=== PATIENT | male | born 1975 | race Two or more races ===

== ENCOUNTER → 2022-08-16 07:54 | Outpatient (BNVA) | payer SELFPAY | PROVIDERS: PCP Physician Assistant; Visit Provider Internal Medicine | DX: Z02.79 Encounter for issue of other medical certificate (principal) ==

== ENCOUNTER 2023-03-12 12:35 | Outpatient (REF) | payer MEDICAID, SELFPAY ==
[2023-03-12 13:21] LABS: MANUAL DIFF FLAG NO
[2023-03-12 13:45] LABS: Basophils Percent Auto 0.4 % (0-2); Eosinophils Absolute Auto 0.1 X10*3/uL (0.0-0.4); Eosinophils Percent Auto 0.9 % (0-4); Hematocrit 45.9 % (42.0-52.0); Hemoglobin 15.3 g/dl (14.0-18.0); Imm Gran Abs Auto 0.05 X10*3/uL (0.00-0.03); Imm Gran Pct Auto 0.5 % (0.0-0.4); Lymphocytes Absolute Auto 2.8 X10*3/uL (1.2-4.9); Lymphocytes Percent Auto 26.9 % (20-40); Mean Corpuscular HGB Conc 33.3 g/dl (31.0-36.0); Mean Corpuscular Hemoglobin 29.9 pg (27.0-33.0); Mean Corpuscular Volume 89.6 fL (80.0-98.0); Mean Platelet Volume 9.8 fL (9.4-12.4); Monocytes Absolute Auto 0.7 X10*3/uL (0.1-1.2); Monocytes Percent Auto 6.6 % (2-11); Neutrophils Absolute Auto 6.7 x10*3/uL (2.0-8.3); Neutrophils Percent Auto 64.7 % (45-73); Platelet Count 307 X10*3/uL (160-400); Red Blood Count 5.12 X10*6/uL (4.60-5.80); Red Cell Distribution Width 13.2 % (11.0-16.0); White Blood Count 10.3 X10*3/uL (4.8-10.8)
[2023-03-12 14:44] LABS: Erythrocyte Sedimentation Rate 29 MM/HR (0-15)
[2023-03-12 14:52] LABS: Anion Gap 12 (12-20); Blood Urea Nitrogen 12 mg/dL (9-16); Calcium 9.5 mg/dL (8.4-10.2); Carbon Dioxide 25 mmol/L (22-29); Chloride 105 mmol/L (96-108); Estimated Glomerular Filt Rate > 60; Glucose Random 78 mg/dL (60-115); Potassium 4.3 mmol/L (3.3-5.1); Sodium 138 mmol/L (135-145)
== END 2023-03-12 12:36 | disposition home or self-care (01) ==
LOC: HO.HHCL 12:35
PROVIDERS: Visit Provider Internal Medicine
DX: R10.32 Left lower quadrant pain (principal)
CPT/HCPCS: 36415; 80048; 85025; 85652

== ENCOUNTER 2023-05-01 03:31 | Inpatient (IN) | payer MEDICAID, SELFPAY ==
[2023-05-01] VITALS (11 sets, daily range): BP systolic 100–168; BP diastolic 46–92; PULSE 50–82; RESP 11–20; TEMP 36.2–36.8; O2SAT 95–98; BMI 30.4
--- NOTE | ~2023-05-01 | FL_ITS ---
EXAMINATION: XR FLUOROSCOPY WITH IMAGES CLINICAL INFORMATION: Cystoscopy, ureteroscopy, retrograde laser lithotripsy left side. COMPARISON: CT abdomen and pelvis 05/01/2023. TECHNIQUE: Fluoroscopy Supervised By: Dr. Silverio. Fluoroscopy Time: 39.8 seconds. Cumulative Dose: 19.95 mGy. Images: Left solitary image demonstrates a wire or catheter within the left ureter and ultimately left collecting system. There is motion artifact. FINDINGS: Laser lithotripsy left side. FL/FL guidance in OR IMPRESSION: As above. Please refer to full operative report for detail.
--- NOTE | ~2023-05-01 | CT_ITS ---
EXAMINATION: CT ABDOMEN AND PELVIS WITHOUT CONTRAST CLINICAL INFORMATION: Back pain, hematuria. COMPARISON: No recent comparison available. TECHNIQUE: Multidetector volumetric imaging was performed from the superior aspect of the liver through the pubic symphysis. Sagittal and coronal reformatted images were obtained on the technologist's workstation. This CT examination was performed using dose optimization techniques as appropriate, variously including the following: *Automated exposure control *Adjustment of mA and/or kV according to patient size (this includes techniques or standardized protocols for targeted exams where dose is matched to indication/reason for exam; i.e. extremities or head) *Use of iterative reconstruction technique DLP: 637 mGy-cm FINDINGS: LUNG BASES: Mild bibasilar atelectasis. HEPATOBILIARY: Liver has normal size and contour. Mild hepatic steatosis is evident with relative sparing adjacent to the gallbladder fossa. Gallbladder has a normal appearance. No radiopaque stones, wall thickening or pericholecystic fluid. No dilated bile ducts. PANCREAS: No edema, pancreatic ductal dilatation or mass. SPLEEN: Normal. ADRENAL GLANDS: Normal. KIDNEYS AND URETERS: Kidneys are normal in size. Left ureteral stent in satisfactory position. A stone of the left ureteropelvic junction causes moderate hydronephrosis. The stone measures up to 1.7 cm maximum dimension, density of approximately 1150 - 1200 Hounsfield units, located 14.6 cm deep from the skin surface at the posterior axillary line. 0.3 cm calyceal stone is present in the left lower pole. No evidence of stones within the ureter. The right kidney and right ureter are unremarkable. BLADDER: The distal segment of the left ureteral stent is well-positioned within the lumen of the urinary bladder. BOWEL AND PERITONEUM: No dilated bowel loops. No focal bowel wall thickening, mesenteric fat stranding or free fluid. There are diverticula of the sigmoid colon without evidence of diverticulitis. ABDOMINAL WALL: Unremarkable. VASCULATURE: Abdominal aorta is normal in caliber. LYMPH NODES: No pathologic sized lymph nodes in the abdomen or pelvis. No inguinal lymphadenopathy. PELVIC VISCERA: Unremarkable. MUSCULOSKELETAL: No acute findings within the visualized degenerated spine. No fracture or malalignment. The degenerative narrowing of disc space is worst (moderate in degree) at L5-S1. CT/CT abdomen pelvis wo IV con IMPRESSION: * Moderate left hydronephrosis is caused by a ureteropelvic junction stone. Also, a small calyceal stone is present in the left lower pole. The left ureteral stent is in satisfactory position. * Diverticulosis of the sigmoid colon without diverticulitis. * Diffuse hepatic steatosis.
[2023-05-01 03:52] LABS: Hematocrit 46.6 % (42.0-52.0); Hemoglobin 15.9 g/dl (14.0-18.0); Mean Corpuscular HGB Conc 34.1 g/dl (31.0-36.0); Mean Corpuscular Hemoglobin 30.4 pg (27.0-33.0); Mean Corpuscular Volume 89.1 fL (80.0-98.0); Mean Platelet Volume 8.5 fL (9.4-12.4); Platelet Count 319 X10*3/uL (160-400); Red Blood Count 5.23 X10*6/uL (4.60-5.80); Red Cell Distribution Width 12.6 % (11.0-16.0); White Blood Count 21.9 X10*3/uL (4.8-10.8)
[2023-05-01 04:20] LABS: Alanine Aminotransferase 20 U/L (0-40); Albumin Level 3.7 g/dL (3.5-5.0); Alkaline Phosphatase 75 U/L (39-117); Anion Gap 14 (12-20); Aspartate Amino Transferase 28 U/L (5-37); Bilirubin Total 0.3 mg/dL (0.0-1.0); Blood Urea Nitrogen 30 mg/dL (9-16); Calcium 8.9 mg/dL (8.4-10.2); Carbon Dioxide 21 mmol/L (22-29); Chloride 107 mmol/L (96-108); Creatinine Clr Calc Pharmacy 77.5; Estimated Glomerular Filt Rate > 60; Glucose Random 99 mg/dL (60-115); Lipase 58 U/L (8-78); Potassium 4.7 mmol/L (3.3-5.1); Sodium 137 mmol/L (135-145); Total Protein 8.5 g/dL (6.5-8.0)
--- OUTSIDE RECORDS SUMMARY | 2023-05-01 04:44 | XMS_ITS | Continuity of Care Document ---
Author Name Unknown Organization [facility] Address [address] [place] [address]- Care Team Providers Care Disposal Man Name Role Phone Name Toni TREADWELL Primary Care Physician En[place] [facility] [place](s): 07/27/22 - 08/26/22 [facility] [address] [place] [id number] Attending Physician: Yuli Uribe Admitting Physician: Admtr, Yuli Referring Physician: Admtr, Ar8 Allergies, Adverse Reactions, Alerts Substance Reaction Severity Status traMADol SOB Active Medications acetaminophen 325 mg oral tablet 975 mg, 3, tablet, By Mouth, Every 6 hours, # 50 tablet, Refills 0, Tot. Refills 0, Acute 10/26/22 7:18:00 EDT, 10/25/21 7:18:00 EDT, Route to Pharmacy Electronically, [facility], Partial fill upon patient request if the prescription is... Start Date: 10/25/21 Stop Date: 10/26/22 Status: Ordered amLODIPine 2.5 mg oral tablet 0 Refills, Maintenance, 07/27/22 9:25:00 EST, Partial fill upon patient request if the prescriptionis for a schedule II opioid drug. Start Date: 07/27/22 Status: Ordered gemfibrozil 600 mg oral tablet 600 mg, 1, tablet, By Mouth, 2 times a day, Refills 0, Maintenance, 10/24/21 12:03:00 EDT, Partial fill upon patient request if the prescription is for a schedule II opioid drug. Start Date: 10/24/21 Status: Ordered Ibuprofen Refills 0, Maintenance, 10/19/21 11:23:00 EDT, Partial fill upon patient request if the prescription is for a schedule II opioid drug. Start Date: 10/19/21 Status: Ordered Omeprazole By Mouth, Daily, 0 Refills, Maintenance, 10/19/21 11:23:00 EDT, Partial fill upon patient request if the prescription is for a schedule II opioid drug. Start Date: 10/19/21 Status: Ordered oxyCODONE 5 mg oral tablet 5 mg, 1, tablet, By Mouth, Every 4 hours, PRN, # 20 tablet, Refills 0, Tot. Refills 0, Acute 10/26/22 7:18:00 EDT, Pain , Severe, 10/25/21 7:18:00 EDT, Route to Pharmacy Electronically, [facility], Partial fill upon patient request if th... Start Date: 10/25/21 Stop Date: 10/26/22 Status: Ordered Problem List Condition Confirmation Course Effective Dates Status Health St [facility] Informant Obese class II Confirmed Active Social History Social History Type Response Smoking Status Never (less than 100 in lifetime) entered on: 10/05/21 Sex Patient Care team information Care Team Personnel Name: Toni Watts MD Position: [facility] Outreach Member Role: PCP Address: Address: [address] [place] [id number]- Care Team Related Persons Name: JAY MCWILLIAMS Address: home [address] [place] [address]
--- OUTSIDE RECORDS SUMMARY | 2023-05-01 04:44 | XMS_ITS | Continuity of Care Document ---
Author Name Unknown Organization [facility] Address Unknown Care Team Providers Care Costume Director Name Role Phone Name Toni TREADWELL Primary Care Physician Encounter [facility] [place] Date(s): 11/07/21 - 11/14/21 [facility] Attending Physician: Morteza TREADWELL, Jazmin Referring Physician: Toni Watts MD Allergies, Adverse Reactions, Alerts Substance Reaction Severity Status traMADol SOB Active Medications acetaminophen 325 mg oral tablet 975 mg, 3, tablet, By Mouth, Every 6 hours, # 50 tablet, Refills 0, Tot. Refills 0, Acute 10/26/22 7:18:00 EDT, 10/25/21 7:18:00 EDT, Route to Pharmacy Electronically, [facility], Partial fill upon patient request if the prescription is... Start Date: 10/25/21 Stop Date: 10/26/22 Status: Ordered gemfibrozil 600 mg oral tablet [...] 10/25/21 7:18:00 EDT, Route to Pharmacy Electronically, [facility], Partial fill upon patient request if th... Start Date: 10/25/21 Stop Date: 10/26/22 Status: Ordered Problem List Condition Effective Dates Status Health Status Inform ant Obese class II(Confirmed) Active Social History Social History Type Response Smoking Status Never (less than 100 in lifetime) entered on: 10/05/21 Sex
--- OUTSIDE RECORDS SUMMARY | 2023-05-01 04:44 | XMS_ITS | Continuity of Care Document ---
Author Name Unknown Organization [facility] Address Unknown Care Team Providers Care Paper Core Machine Operator Name Role Phone Name Toni TREADWELL Primary Care Physician [place] [facility] [place] [id number] Date(s): 11/07/21 - 12/07/21 [facility] Attending Physician: Yuli Uribe Admitting Physician: AdmYuli elliott Referring Physician: AdmtrYuli Allergies, Adverse Reactions, Alerts Substance Reaction Severity Status traMADol SOB Active Medications acetaminophen 325 mg oral tablet 975 mg, 3, tablet, By Mouth, Every 6 hours, # 50 tablet, Refills 0, Tot. Refills 0, Acute 10/26/22 7:18:00 EDT, 10/25/21 7:18:00 EDT, Route to Pharmacy Electronically, [facility], Partial fill upon patient [...] 10/25/21 7:18:00 EDT, Route to Pharmacy Electronically, [facility], Partial fill upon patient request if th... Start Date: 10/25/21 Stop Date: 10/26/22 Status: Ordered Problem List Condition Effective Dates Status Health Status Inform ant Obese class II(Confirmed) Active Social History Social History Type Response Smoking Status Never (less than 100 in lifetime) entered on: 10/05/21 Sex
--- OUTSIDE RECORDS SUMMARY | 2023-05-01 04:44 | XMS_ITS | Continuity of Care Document ---
Author Name Unknown Organization [facility] Address Unknown Care Team Providers Care Survey Project Manager Name Role Phone Name Toni TREADWELL Primary Care Physician En[place] [facility] [place] Date(s): 10/12/21 - 11/11/21 [facility] Allergies, Adverse Reactions, Alerts Substance Reaction Severity Status traMADol SOB Active Medications acetaminophen 325 mg oral tablet 975 mg, 3, tablet, By Mouth, Every 6 hours, # 50 tablet, Refills 0, Tot. Refills 0, Acute 10/26/22 7:18:00 EDT, 10/25/21 7:18:00 EDT, Route to Pharmacy Electronically, [facility], Partial fill upon patient [...] 10/25/21 7:18:00 EDT, Route to Pharmacy Electronically, [facility], Partial fill upon patient request if th... Start Date: 10/25/21 Stop Date: 10/26/22 Status: Ordered Problem List Condition Effective Dates Status Health Status Inform ant Obese class II(Confirmed) Active Social History Social History Type Response Smoking Status Never (less than 100 in lifetime) entered on: 10/05/21 Sex
--- OUTSIDE RECORDS SUMMARY | 2023-05-01 04:44 | XMS_ITS | Continuity of Care Document ---
Author Name Unknown Organization [facility] Address [address] [place] [address]- Care Team Providers Care Medical Malpractice Paralegal Name Role Phone Name Toni TREADWELL Primary Care Physician [place] [facility] [place] 11[place]/21 [facility] [address] [place] [email or web address] Attending Physician: Yuli Uribe Admitting Physician: AdmtrYuli Referring Physician: Admtr, Ar8 Allergies, Adverse Reactions, Alerts Substance Reaction Severity Status traMADol SOB Active Medications acetaminophen 325 mg oral tablet 975 mg, 3, tablet, By Mouth, Every 6 hours, # 50 tablet, Refills 0, Tot. Refills 0, Acute 10/26/22 7:18:00 EDT, 10/25/21 7:18:00 EDT, Route to Pharmacy Electronically, [facility], Partial fill upon patient request if [...] 10/25/21 7:18:00 EDT, Route to Pharmacy Electronically, [facility], Partial fill upon patient request if th... Start Date: 10/25/21 Stop Date: 10/26/22 Status: Ordered Problem List Condition Effective Dates Status Health Status Inform ant Obese class II(Confirmed) Active Social History Social History Type Response Smoking Status Never (less than 100 in lifetime) entered on: 10/05/21 Sex
--- OUTSIDE RECORDS SUMMARY | 2023-05-01 04:44 | XMS_ITS | Continuity of Care Document ---
Author Name Unknown Organization [facility] Address [address] [place] [address]- Care Team Providers Care Deputy Sheriff Generalist/Bailiff Name Role Phone Name Toni TREADWELL Primary Care Physician Encounter [facility] [place] Date(s): 09/26/21 - 10/26/21 [facility] [address] [place] [id number] Allergies, Adverse Reactions, Alerts Substance Reaction Severity Status traMADol SOB Active Medications acetaminophen 325 mg oral tablet 975 mg, 3, tablet, By Mouth, Every 6 hours, # 50 tablet, Refills 0, Tot. Refills 0, Acute 10/26/22 7:18:00 EDT, 10/25/21 7:18:00 EDT, Route to Pharmacy Electronically, [facility], Partial fill upon patient request [...] 10/25/21 7:18:00 EDT, Route to Pharmacy Electronically, [facility], Partial fill upon patient request if th... Start Date: 10/25/21 Stop Date: 10/26/22 Status: Ordered Problem List Condition Effective Dates Status Health Status Inform ant Obese class II(Confirmed) Active Social History Social History Type Response Smoking Status Never (less than 100 in lifetime) entered on: 10/05/21 Sex
--- OUTSIDE RECORDS SUMMARY | 2023-05-01 04:44 | XMS_ITS | Continuity of Care Document ---
Author Name Unknown Organization [facility] Address [address] [place] [id number]- Care Team Providers Care Tap Out Operator Name Role Phone Name Toni TREADWELL Primary Care Physician [phone] [place] [facility] [place]04[place] 08/03/22 [facility] [address] [place] [id number]- [place] Allergies, Adverse Reactions, Alerts Substance Reaction Severity [...] Care team information Care Team Personnel Name: Name Toni TREADWELL Position: [facility] Outreach Member Role: PCP Address: Address: [address] [place] [address]- Care Team Related Persons Name: JAY MCWILLIAMS Address: home [address] [place] [address]
--- OUTSIDE RECORDS SUMMARY | 2023-05-01 04:44 | XMS_ITS | Continuity of Care Document ---
Author Name Unknown Organization [facility] Address [address] [place] [address]- Care Team Providers Care Medical Staff Services Manager Name Role Phone Name Toni TREADWELL Primary Care Physician [place] [facility] [place](s): 11/04/22 - 12/04/22 [facility] [address] [place] [address]- Allergies, Adverse Reactions, Alerts Substance Reaction Severity Status traMADol SOB Active Medications amLODIPine 5 mg oral tablet 5 mg, 1, tablet, By Mouth, Daily, This is an increase in dose. Refer subsequentl refills to PCP., #90 tablet, Refills 3, Tot. Refills 3, Maintenance, 09/06/22 9:53:00 EDT, Route to Pharmacy Electronically, [id number], Partial fill upon patien... Start Date: 09/06/22 Stop Date: 09/01/23 Status: Ordered gemfibrozil 600 mg oral tablet [...] opioid drug. Start Date: 10/19/21 Status: Ordered Problem List Condition Confirmation Course Effective Dates Status Health St [facility] Informant Obese class II Confirmed Active Social History Social History Type Response Smoking Status Never (less than 100 in lifetime) entered on: 10/05/21 Sex Patient Care team information Care Team Personnel Name: Name Toni TREADWELL Position: [facility] Outreach Member Role: PCP Address: Address: [address] [place] [phone]- Care Team Related Persons Name: JAY MCWILLIAMS Address: home [address] [place] [address]
[2023-05-01 06:33] LABS: Appearance Urine Cloudy; Glucose Urine UA Negative (Negative); Leukocyte Esterase Urine Small (1+) (Negative); PH 6.5 (5.0-9.0); Specific Gravity - Urine 1.025 (1.005-1.025); UMIC TRIGGER UACC YES; Urine Blood Large (3+) (Negative); Urine Protein 300 (3+) mg/dL (Neg-Trace)
[2023-05-01 06:35] LABS: Color Urine Brown
[2023-05-01 06:41] LABS: Bacteria Urine None Seen (None Seen); Hyaline Casts Urine 0-2 /LPF (0-2); RBC Urine >20 /HPF (0-2); Squamous Epithelial Cell Urine 0-2 /HPF (0-2); UACC Culture Trigger YES; WBC Urine >50 /HPF (0-5)
--- NOTE | 2023-05-01 06:57 | ED_ITS ---
HPI - General Adult General Chief complaint: General Medical Stated complaint: kidney pain Time Seen by Provider: 05/01/23 06:54 Source: patient Mode of arrival: ambulatory Limitations: no limitations History of Present Illness HPI narrative: 47-year-old male presents for evaluation of severe left flank pain that radiates to the left lower quadrant. He was recently admitted to [facility] on for a left sided 16mm kidney stone where a stent was placed. The patient was discharged on Saturday, and started experiencing blood in his urine and pain around noon yesterday. He reports increased urinary frequency and dysuria. He denies fevers, chest pain, palpitations, and shortness of breath. He also reports left calf and foot pain which has been going on for 7 weeks but is significantly worse today. He says the DVT workup at [place] was negative. He denies nausea, vomiting, and diarrhea. No headaches or vision changes. No urinary or bowel incontinence. No gait abnormalities, sensory loss, or paresthesias. Related Data Allergies Allergy/AdvReac Type Severity Reaction Status Date / Time trazodone AdvReac Anaphylaxis Verified 05/01/23 03:49 Review of Systems 2 Review of Systems: Constitutional : No Weight loss, No Fever, No Chills, No Fatigue, No Malaise Cardiovascular : No Chest Pain, No SOB, No Dyspnea on Exertion, No Orthopnea, No Edema, No Palpitations Respiratory : No Cough, No Sputum, No Wheezing Gastrointestinal : No Nausea, No Vomiting, No Diarrhea, No Constipation, + abdominal Pain, No Hematochezia, No Melena Genitourinary : + Dysuria, + Urinary Frequency, + Hematuria, Musculoskeletal : +Flank pain. +Left calf and foot pain. Skin : No Skin Lesions, No rash Neuro : No Weakness, No Numbness, No Dizziness, No Headache All other systems reviewed and are negative PMFSH Social History Social History Advance Directives: No Advance Directives Information Provided: No Physical Exam ED Vital Signs: Vital Signs - 24 hr 05/01/23 03:36 05/01/23 04:31 05/01/23 06:31 Temperature 97.9 F 98.2 F Pulse Rate 82 67 57 Respiratory Rate 20 16 16 Blood Pressure 130/62 119/75 100/55 L Pulse Oximetry 96 95 98 Oxygen Delivery Method Room Air Room Air Room Air 05/01/23 08:00 05/01/23 08:57 Temperature 97.8 F Pulse Rate 60 53 Respiratory Rate 13 18 Blood Pressure 124/64 146/84 H Pulse Oximetry 98 97 Oxygen Delivery Method Room Air Room Air BMI result Body Mass Index 30.4 VSS Appearance: Alert.? Oriented X3.?Uncomfortable but in no acute distress.? Head: Normocephalic, atraumatic, no step-offs or deformities Eyes: Pupils equal, round and reactive to light. Neck: Normal inspection.? Neck supple.?No cervical lymphadenopathy noted on exam. CVS: Normal heart rate and rhythm.? Pulses normal.? Respiratory: No respiratory distress.? Breath sounds normal.? Abdomen: Soft and nondistended. Normoactive bowel sounds throughout. Tenderness to palpation of the left lower quadrant. No rebound tenderness or guarding. Negative Aguilar's, McBurney's, and Rosving's. Skin: Skin warm and dry.? Normal skin color.? Normal skin turgor.? Extremities: No lower extremity edema.? + left calf and left great toe ttp. 5/5 strength to right lower extremities. 4/5 strength to left lower extremity. Full ROM of right lower extremity, range of motion on left is limited due to pain. 2+ DP/PT pulses bilaterally. No sensory deficit noted on exam. Back: No midline tenderness, no C-spine tenderness, full range of motion. +CVA tenderness on left, no CVA tenderness on right. Neuro: Oriented X 3.? No motor deficit.? No sensory deficit. CN 2-12 intact Course Reevaluation(s) Reevaluation #1: CBC leukocytosis 21.9. Chemistry unremarkable no acute findings requiring intervention. UA with no bacteria however large amount of blood noted and leukocyte esterases. CT abdomen and pelvis with moderate left hydronephrosis caused by UPJ stone. Stone present in the left lower pole also. Diverticulosis however no diverticulitis. This case was discussed with urology recommended adding oxybutynin and re-evaluation Time: 08:12 Reevaluation #2: Re-evaluation patient still 9/10 pain, reported this Urology will give Dilaudid for pain control. Plans hospital admission Time: 09:57 Medications Administered Discontinued Medications Generic Name Dose Route Start Last Admin Trade Name Freq PRN Reason Stop Dose Admin Sodium Chloride 2,721.54 mls @ 2,721.54 mls/hr 05/01/23 06:54 05/01/23 09:56 Ns 30 ml/kg infuse over 1 hr (2721.54 ml) 05/01/23 07:53 Infused IV Infusion .Q1H STA Ceftriaxone Sodium 1 gm/ 50 mls @ 100 mls/hr 05/01/23 06:54 05/01/23 08:04 Sodium Chloride IV 05/01/23 07:23 Infused ONCE ONE Infusion Ketorolac Tromethamine 30 mg 05/01/23 08:12 05/01/23 08:53 Ketorolac Tromethamine 15 Mg/Ml Vial IVPUSH 05/01/23 08:13 30 mg ONCE ONE Administration Morphine Sulfate 4 mg 05/01/23 06:59 05/01/23 08:03 Morphine Sulfate 4 Mg/Ml Cartridge IVPUSH 05/01/23 07:00 4 mg ONCE ONE Administration Protocol Oxybutynin Chloride 5 mg 05/01/23 08:13 05/01/23 08:53 Oxybutynin Chloride Er 5 Mg Tab.Er.24 PO 05/01/23 08:14 5 mg ONCE ONE Administration Medical Decision Making Medical Decision Making [facility] Narrative: 0650 47-year-old male 6 days s/p ureteral stent placement for 16 mm kidney stone presents with left flank pain, left lower abdominal pain, dysuria, hematuria, and increased urinary frequency PE revealed left sided CVA tenderness, tenderness to palpation of the LLQ, and TTP of the left calf Likely urolithiasis, pyelonephritis, UTI, DVT unlikely sepsis, bowel perforation, acute abdomen, appendicitis, cholecystitis, diverticulitis, pancreatitis, SBO, LBO, cauda equinae, epidural abscess, threat to limb, NV compromise Plan: Labs, UA, Imaging I noted patient has a white count from labs obtained prior to me picking up this patient, he is tachycardic, low blood pressure, at this time infection suspected will treat with ceftriaxone, fluids. Will obtain blood cultures and lactic Differential Diagnosis Differential Diagnoses: The differential diagnosis associated with the presentation includes Likely urolithiasis, pyelonephritis, UTI, DVT unlikely sepsis, bowel perforation, acute abdomen, appendicitis, cholecystitis, diverticulitis, pancreatitis, SBO, LBO, cauda equinae, epidural abscess, threat to limb, NV compromise Admission/Observation Consideration of admission/observation: Escalation of care including admission/observation considered Likely Consult Healthcare Provider Management of the patient was discussed with: Diagram Clerk Lab Data MDM Lab Attestation statement: I reviewed the patient's lab results. 05/01/23 03:46 05/01/23 03:46 Labs: Lab Results 05/01/23 05/01/23 05/01/23 Range/Units 03:46 06:28 07:05 WBC 21.9 H (4.8-10.8) X10*3/uL RBC 5.23 (4.60-5.80) X10*6/uL Hgb 15.9 (14.0-18.0) g/dl Hct 46.6 (42.0-52.0) % MCV 89.1 (80.0-98.0) fL MCH 30.4 (27.0-33.0) pg MCHC 34.1 (31.0-36.0) g/dl RDW 12.6 (11.0-16.0) % Plt Count 319 (160-400) X10*3/uL MPV 8.5 L (9.4-12.4) fL Absolute Nucleated RBC 0.000 (0.0-0.012) X10*3/uL Nucleated RBC % (auto) 0.0 (0.0-0.2) /100WBC D-Dimer High Sensitivty NG/ML Sodium 137 (135-145) mmol/L Potassium 4.7 (3.3-5.1) mmol/L Chloride 107 (96-108) mmol/L Carbon Dioxide 21 L (22-29) mmol/L Anion Gap 14 (12-20) BUN 30 H (9-16) mg/dL Creatinine 1.26 (0.5-1.4) mg/dL Estim Creat Clear Calc 77.5 Estimated GFR > 60 Random Glucose 99 (60-115) mg/dL Lactic Acid 1.3 (0.5-2.0) mmol/L Calcium 8.9 D (8.4-10.2) mg/dL Total Bilirubin 0.3 (0.0-1.0) mg/dL AST 28 (5-37) U/L ALT 20 (0-40) U/L Alkaline Phosphatase 75 (39-117) U/L Total Protein 8.5 H (6.5-8.0) g/dL Albumin 3.7 (3.5-5.0) g/dL Lipase 58 (8-78) U/L Urine Color Brown A Urine Appearance Cloudy Urine pH 6.5 (5.0-9.0) Ur Specific [place] 1.025 (1.005-1.025) Urine Protein 300 (3+) H (Neg-Trace) mg/dL Urine Glucose (UA) Negative (Negative) mg/dL Urine Ketones See Note (Negative) mg/dL Urine Blood Large (3+) H (Negative) Urine Nitrite See Note (Negative) Ur Leukocyte Esterase Small (1+) H (Negative) Urine RBC >20 H (0-2) /HPF Urine WBC >50 H (0-5) /HPF Ur Squamous Epith Cells 0-2 (0-2) /HPF Urine Bacteria None Seen (None Seen) Hyaline Casts 0-2 (0-2) /LPF 05/01/23 Range/Units 07:19 WBC (4.8-10.8) X10*3/uL RBC (4.60-5.80) X10*6/uL Hgb (14.0-18.0) g/dl Hct (42.0-52.0) % MCV (80.0-98.0) fL MCH (27.0-33.0) pg MCHC (31.0-36.0) g/dl RDW (11.0-16.0) % Plt Count (160-400) X10*3/uL MPV (9.4-12.4) fL Absolute Nucleated RBC (0.0-0.012) X10*3/uL Nucleated RBC % (auto) (0.0-0.2) /100WBC D-Dimer High Sensitivty < 150 NG/ML Sodium (135-145) mmol/L Potassium (3.3-5.1) mmol/L Chloride (96-108) mmol/L Carbon Dioxide (22-29) mmol/L Anion Gap (12-20) BUN (9-16) mg/dL Creatinine (0.5-1.4) mg/dL Estim Creat Clear Calc Estimated GFR Random Glucose (60-115) mg/dL Lactic Acid (0.5-2.0) mmol/L Calcium (8.4-10.2) mg/dL Total Bilirubin (0.0-1.0) mg/dL AST (5-37) U/L ALT (0-40) U/L Alkaline Phosphatase (39-117) U/L Total Protein (6.5-8.0) g/dL Albumin (3.5-5.0) g/dL Lipase (8-78) U/L Urine Color Urine Appearance Urine pH (5.0-9.0) Ur Specific [place] (1.005-1.025) Urine Protein (Neg-Trace) mg/dL Urine Glucose (UA) (Negative) mg/dL Urine Ketones (Negative) mg/dL Urine Blood (Negative) Urine Nitrite (Negative) Ur Leukocyte Esterase (Negative) Urine RBC (0-2) /HPF Urine WBC (0-5) /HPF Ur Squamous Epith Cells (0-2) /HPF Urine Bacteria (None Seen) Hyaline Casts (0-2) /LPF Critical Care Time Critical Care Time Critical Care Time: Yes Total Critical Care Time: 35 Attestation: I attest to this time spent taking care of the patient, obtaining history, physical, reviewing labs, imaging, speaking to my attending, speaking to specialist. Discharge Plan Discharge Clinical Impression: Hydronephrosis, Left flank pain Patient Disposition: Admitted As Inpatient Instructions: Flank Pain (ED), Hydronephrosis (ED)
[2023-05-01] MEDS: 0.9 % Sodium Chloride 2,721.54 ML 2721.54 ML IV (07:09)
--- NOTE | 2023-05-01 07:12 | PC.NURSE ---
Assumed care of pt at this time.
[2023-05-01 07:19] LABS: Lactic Acid 1.3 mmol/L (0.5-2.0)
[2023-05-01] MEDS: cefTRIAXone sodium 1 GM in 0.9 % Sodium Chloride 50 ML IV (07:20)
[2023-05-01 07:34] LABS: D Dimer High Sensitivity < 150 NG/ML
[2023-05-01] MEDS: Morphine Sulfate 4 MG/ML CARTRIDGE IVPUSH (08:03)
[2023-05-01] MEDS: Ketorolac Tromethamine 15 MG/ML VIAL 30 MG IVPUSH (08:53)
[2023-05-01] MEDS: oxyBUTYnin chloride ER 5 MG TAB.ER.24 PO (08:53)
--- NOTE | 2023-05-01 08:57 | PC.NURSE ---
IV fluids still running per sepsis protocol.
--- NOTE | 2023-05-01 09:54 | PC.NURSE ---
Pain medication ineffective; provider notified. Orders to follow
[2023-05-01] MEDS: HYDROmorphone HCl 1 MG/ML SYRINGE IVPUSH ×2 (10:01→12:46)
--- NOTE | 2023-05-01 12:50 | PC.NURSE ---
medication administered per provider order.
--- NOTE | 2023-05-01 13:02 | PHA.MEDREC ---
Pharmacy Consult ? Medication Reconciliation Pharmacy has completed the medication reconciliation.
--- NOTE | 2023-05-01 13:27 | PC.NURSE ---
Pain medication still ineffective; provider notified. Awaiting orders.
--- NOTE | 2023-05-01 14:21 | PC.NURSE ---
Pt assessed to be sleeping comfortably with no signs of discomfort.
[2023-05-01] MEDS: HYDROcodone Bit/Acetam 5/325 TABLET 1 TAB PO ×2 (18:30→23:50)
[2023-05-01] MEDS: 0.9 % Sodium Chloride 1,000 ML 100 ML IVCONT (19:46)
[2023-05-02] MEDS: Ketorolac Tromethamine 30 MG/ML VIAL IVPUSH ×3 (00:25→13:57)
[2023-05-02 03:14] VITALS: BP 140/73; PULSE 57; RESP 16; TEMP 36; O2SAT 95
[2023-05-02] MEDS: HYDROcodone Bit/Acetam 5/325 TABLET 1 TAB PO ×4 (03:47→22:02)
[2023-05-02] MEDS: 0.9 % Sodium Chloride 1,000 ML 100 ML IVCONT ×3 (05:27→17:27)
[2023-05-02 06:15] LABS: MANUAL DIFF FLAG NO
[2023-05-02 06:24] LABS: Basophils Percent Auto 0.3 % (0-2); Eosinophils Absolute Auto 0.2 X10*3/uL (0.0-0.4); Eosinophils Percent Auto 1.9 % (0-4); Hematocrit 43.2 % (42.0-52.0); Hemoglobin 14.8 g/dl (14.0-18.0); Imm Gran Abs Auto 0.07 X10*3/uL (0.00-0.03); Imm Gran Pct Auto 0.6 % (0.0-0.4); Lymphocytes Absolute Auto 2.8 X10*3/uL (1.2-4.9); Lymphocytes Percent Auto 22.4 % (20-40); Mean Corpuscular HGB Conc 34.3 g/dl (31.0-36.0); Mean Corpuscular Hemoglobin 30.5 pg (27.0-33.0); Mean Corpuscular Volume 89.1 fL (80.0-98.0); Mean Platelet Volume 8.9 fL (9.4-12.4); Monocytes Absolute Auto 0.8 X10*3/uL (0.1-1.2); Monocytes Percent Auto 6.2 % (2-11); Neutrophils Absolute Auto 8.4 x10*3/uL (2.0-8.3); Neutrophils Percent Auto 68.6 % (45-73); Platelet Count 288 X10*3/uL (160-400); Red Blood Count 4.85 X10*6/uL (4.60-5.80); Red Cell Distribution Width 12.6 % (11.0-16.0); White Blood Count 12.3 X10*3/uL (4.8-10.8)
[2023-05-02] MEDS: cefTRIAXone sodium 1 GM in 0.9 % Sodium Chloride 50 ML IV (06:27)
[2023-05-02 07:42] VITALS: BP 137/67; PULSE 64; RESP 16; TEMP 36.3; O2SAT 96
--- NOTE | 2023-05-02 12:04 | MHC.CM.PN ---
PATIENT FROM HOME WITH AND SON. AMBULATES WITH [facility]. NO SERVICES. HCP: JAY [phone] PCP: BAIRON GILBERT DCP: GOAL IS HOME SELF CARE, TO TRANSPORT. CM WILL CONTINUE TO FOLLOW.
--- NOTE | 2023-05-02 13:36 | P.HPGS_ITS ---
History of Present Illness History of Present Illness Date of Service: 05/02/23 Chief complaint: renal colic Narrative: Ifeanyi Howard is a 47 year old male Had undergone cystoscopy with stent placement last at [facility] Has not tolerated stent on left side Persistent pain with nausea Has been admitted for control of renal colic Imaging - CT A stone of the left ureteropelvic junction causes moderate hydronephrosis. The stone measures up to 1.7 cm maximum dimension, density of approximately 1150 - 1200 Hounsfield units, located 14.6 cm deep from the skin surface at the posterior axillary line. 0.3 cm calyceal stone is present in the left lower pole. No evidence of stones within the ureter Lab work shows WBC 12.3 down from 29 Based on failure to tolerate stent recommend intervention with cystoscopy, left stent removal, left ureteroscopy with laser lithotripsy Review of Systems Constitutional: Constitutional: Reports as per HPI and Reports no additional constitutional complaints Cardiovascular: Cardiovascular: Reports as per HPI and Reports no additional cardiovascular complaints Respiratory: Respiratory: Reports as per HPI and Reports no additional respiratory complaints Gastrointestinal: Gastrointestinal: Reports as per HPI and Reports no additional gastrointestinal complaints Genitourinary: Genitourinary: Reports as per HPI Musculoskeletal: Musculoskeletal: Reports no additional musculoskeletal complaints and Reports as per HPI Neurologic: Reports system reviewed and no additional complaints, except as documented and Reports as per HPI [facility] Social History Social History Household Members: Children Housing: House Do you presently have visiting nurse or other home services: No Patient Tobacco Use Status: Never used Tobacco Use of substances other than those prescribed or required for medical reasons: No Currently Displaying Signs/Symptoms of Drug Intoxication Withdrawal: No Have you been hit, kicked, punched, or otherwise hurt by someone within the past year? If so, by whom?: No Do you feel safe in your current relationship?: Yes Is there a partner from a previous relationship who is making you feel unsafe now?: No Are you made to feel afraid or neglected: No Advance Directives: No Advance Directives Information Provided: No Do you have thoughts of harming others: None Do you have a plan to hurt others: No Plan Recently lost weight without trying: Yes How much weight loss: 34pounds or more Eating poorly because of decreased appetite: Yes Nutrition screen score: 7 Nutrition Risks: No Nutritional Risk Poor oral hygiene: No service: No Meds Allergies Allergy/AdvReac Type Severity Reaction Status Date / Time trazodone AdvReac Anaphylaxis Verified 05/01/23 03:49 Active Medications: Current Medications Acetaminophen (Acetaminophen 325 Mg Tablet) 650 mg PO Q6H PRN PRN Reason: Pain, Mild (Pain Scale 1-3) Hydrocodone Bitart/Acetaminophen (Hydrocodone Bit/Acetam 5/325 Tablet) 1 tab PO Q4H PRN PRN Reason: Pain, Moderate(Pain Scale 4-6) Last Admin: 05/02/23 10:56 Dose: 1 tab Sodium Chloride (Ns) 1,000 mls @ 100 mls/hr IVCONT .Q10H [facility] Last Admin: 05/02/23 12:33 Dose: 100 mls/hr Ceftriaxone Sodium 1 gm/ (Sodium Chloride) 50 mls @ 100 mls/hr IV Q24H [facility] Last Infusion: 05/02/23 07:37 Dose: Infused Levofloxacin (Levaquin) 500 mg in 100 mls @ 100 mls/hr IV PREOP ONE Stop: 05/02/23 14:31 Ketorolac Tromethamine (Ketorolac Tromethamine 30 Mg/Ml Vial) 30 mg IVPUSH Q6H PRN PRN Reason: Pain, Mild (Pain Scale 1-3) Stop: 05/06/23 16:34 Last Admin: 05/02/23 06:25 Dose: 30 mg Sodium Chloride (0.9 % Sodium Chloride Flush 3 Ml Syringe) 3 ml IVFLUSH QSHIFT [facility] Last Admin: 05/02/23 07:37 Dose: Not Given Home Medications Medication Instructions Recorded Confirmed Last Taken Type acetaminophen 500 mg tablet 500 mg PO Q6H PRN mild pain 05/01/23 05/01/23 Unknown History amlodipine 5 mg tablet 5 mg PO DAILY 05/01/23 05/01/23 Unknown History diclofenac sodium 1 % topical gel 1 inch topical BID pain 05/01/23 05/01/23 Unknown History docusate sodium 100 mg capsule 100 mg PO BID 05/01/23 05/01/23 Unknown History methocarbamol 750 mg tablet 750 mg PO Q6H PRN muscle spasm 05/01/23 05/01/23 Unknown History omega-3 300 mg-dha 120 mg-epa 180 1 cap PO QAM 05/01/23 05/01/23 Unknown History mg-fish oil 1,000 mg capsule omeprazole 40 mg capsule,delayed 40 mg PO DAILY 05/01/23 05/01/23 Unknown H istory release tamsulosin 0.4 mg capsule 0.4 mg PO QAM 05/01/23 05/01/23 Unknown History Physical Exam Vital Signs: Vital Signs: Last Vital Signs Temp 97.4 F 05/02/23 07:42 Pulse 64 05/02/23 07:42 Resp 16 05/02/23 07:42 BP 137/67 05/02/23 07:42 Pulse Ox 96 05/02/23 07:42 O2 Del Method Room Air 05/02/23 07:42 BMI result Body Mass Index 30.4 Const: General: cooperative, healthy appearing, comfortable and no acute distress Orientation/consciousness: patient oriented x3 HEENT: Face and sinus: Yes normal facial exam Mouth: moist mucous membranes Neck: Neck: Yes normal visual inspection, Yes full ROM and Yes trachea midline Chest: Chest palpation & inspection: normal inspection of the chest Resp: Effort & Inspection: normal respiratory effort, able to speak in complete sentences and no respiratory distress GI: Inspection: Yes normal to inspection Back/Spine/Pelvis: Cervical Spine: normal cervical lordosis Thoracic/Lumbar Spine: thoracic and lumbar spine normal to inspection Skin: General skin exam: no rashes or lesions noted Neuro: General: patient oriented x3, tone normal and moves all extremities Extrem: General: Yes normal to inspection and Yes capillary refill normal Results Results Labs: Short CBC 05/02/23 Range/Units 05:44 WBC 12.3 H (4.8-10.8) X10*3/uL Hgb 14.8 (14.0-18.0) g/dl Hct 43.2 (42.0-52.0) % Plt Count 288 (160-400) X10*3/uL Urine 05/01/23 Range/Units 06:28 Urine Color Brown A Urine Appearance Cloudy Urine pH 6.5 (5.0-9.0) Ur Specific [place] 1.025 (1.005-1.025) Urine Protein 300 (3+) H (Neg-Trace) mg/dL Urine Glucose (UA) Negative (Negative) mg/dL Assessment and Plan (1) Left flank pain: Status: Acute (2) Hydronephrosis: Qualifiers: Hydronephrosis type: with ureteropelvic junction obstruction Qualified 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
[2023-05-02 15:32] VITALS: BP 131/71; PULSE 64; RESP 16; TEMP 36.6; O2SAT 94
[2023-05-02 19:21] VITALS: BP 134/75; PULSE 70; RESP 18; TEMP 36.4; O2SAT 95
[2023-05-03] VITALS (11 sets, daily range): BP systolic 114–158; BP diastolic 62–90; PULSE 61–106; RESP 16–18; TEMP 36–36.9; O2SAT 94–98
[2023-05-03] MEDS: Ketorolac Tromethamine 30 MG/ML VIAL IVPUSH ×2 (02:05→05:42)
[2023-05-03] MEDS: 0.9 % Sodium Chloride 1,000 ML 100 ML IVCONT ×2 (02:33→15:39)
[2023-05-03] MEDS: HYDROcodone Bit/Acetam 5/325 TABLET 1 TAB PO (04:52)
[2023-05-03] MEDS: cefTRIAXone sodium 1 GM in 0.9 % Sodium Chloride 50 ML IV (05:43)
--- NOTE | 2023-05-03 05:45 | MHC.PIE ---
p; pt c/o pain 02/26, note; prn toladol q6 given at 0200, prn lorcet given at 0452 with no effect. i; dr nguyen notified. ok to give early dose toradol e; will cont to monitor
--- NOTE | 2023-05-03 10:58 | MHC.CM.PN ---
EMR REVIEWED. NO DC AT THIS TIME, PLAN FOR OR TODAY. CM WILL CONTINUE TO FOLLOW.
--- NOTE | 2023-05-03 11:13 | HO.ANESPROP2 ---
HPI - Anesthesia Eval Consult details Narrative: Urethral stone PMFSH Active Problems Active Problems: All Active Problems (Updated 05/02/23 @ 13:42 by Cruz Benavides MD) Left renal stone (Acute) Left flank pain (Acute) Hydronephrosis (Acute) Family History Family history of problems with anesthesia: No Surgical History History of Problems with Anesthesia: No Social History Social History Household Members: Children Housing: House Do you presently have visiting nurse or other home services: No Patient Tobacco Use Status: Never used Tobacco Use of substances other than those prescribed or required for medical reasons: No Currently Displaying Signs/Symptoms of Drug Intoxication Withdrawal: No Have you been hit, kicked, punched, or otherwise hurt by someone within the past year? If so, by whom?: No Do you feel safe in your current relationship?: Yes Is there a partner from a previous relationship who is making you feel unsafe now?: No Are you made to feel afraid or neglected: No Advance Directives: No Advance Directives Information Provided: No Do you have thoughts of harming others: None Do you have a plan to hurt others: No Plan Recently lost weight without trying: Yes How much weight loss: 34pounds or more Eating poorly because of decreased appetite: Yes Nutrition screen score: 7 Nutrition Risks: No Nutritional Risk Poor oral hygiene: No service: No Meds Allergies Allergy/AdvReac Type Severity Reaction Status Date / Time trazodone AdvReac Anaphylaxis Verified 05/01/23 03:49 Active Medications: Current Medications Acetaminophen (Acetaminophen 325 Mg Tablet) 650 mg PO Q6H PRN PRN Reason: Pain, Mild (Pain Scale 1-3) Hydrocodone Bitart/Acetaminophen (Hydrocodone Bit/Acetam 5/325 Tablet) 1 tab PO Q4H PRN PRN Reason: Pain, Moderate(Pain Scale 4-6) Last Admin: 05/03/23 04:52 Dose: 1 tab Sodium Chloride (Ns) 1,000 mls @ 100 mls/hr IVCONT .Q10H [facility] Last Admin: 05/03/23 02:33 Dose: 100 mls/hr Ceftriaxone Sodium 1 gm/ (Sodium Chloride) 50 mls @ 100 mls/hr IV Q24H [facility] Last Infusion: 05/03/23 06:26 Dose: Infused Ketorolac Tromethamine (Ketorolac Tromethamine 30 Mg/Ml Vial) 30 mg IVPUSH Q6H PRN PRN Reason: Pain, Mild (Pain Scale 1-3) Stop: 05/06/23 16:34 Last Admin: 05/03/23 05:42 Dose: 30 mg Sodium Chloride (0.9 % Sodium Chloride Flush 3 Ml Syringe) 3 ml IVFLUSH QSHIFT [facility] Last Admin: 05/03/23 07:08 Dose: Not Given Home Medications Medication Instructions Recorded Confirmed Last Taken Type acetaminophen 500 mg tablet 500 mg PO Q6H PRN mild pain 05/01/23 05/01/23 Unknown History amlodipine 5 mg tablet 5 mg PO DAILY 05/01/23 05/01/23 Unknown History diclofenac sodium 1 % topical gel 1 inch topical BID pain 05/01/23 05/01/23 Unknown History docusate sodium 100 mg capsule 100 mg PO BID 05/01/23 05/01/23 Unknown History methocarbamol 750 mg tablet 750 mg PO Q6H PRN muscle spasm 05/01/23 05/01/23 Unknown History omega-3 300 mg-dha 120 mg-epa 180 1 cap PO QAM 05/01/23 05/01/23 Unknown History mg-fish oil 1,000 mg capsule omeprazole 40 mg capsule,delayed 40 mg PO DAILY 05/01/23 05/01/23 Unknown History release tamsulosin 0.4 mg capsule 0.4 mg PO QAM 05/01/23 05/01/23 Unknown History Exam Height,Weight and Vital Signs: Height 5 ft 8 in Weight 90.718 kg Last Vital Signs Temp 98.1 F 05/03/23 07:57 Pulse 61 05/03/23 07:57 Resp 18 05/03/23 07:57 BP 123/71 05/03/23 07:57 Pulse Ox 95 05/03/23 07:57 O2 Del Method Room Air 05/03/23 07:57 Pertinent Lab Results Pertinent Lab Results: Laboratory Tests 05/01/23 05/01/23 05/01/23 03:46 06:28 07:05 WBC 21.9 H RBC 5.23 Hgb 15.9 Hct 46.6 MCV 89.1 MCH 30.4 MCHC 34.1 RDW 12.6 Plt Count 319 MPV 8.5 L Immature Gran % (Auto) Neut % (Auto) Lymph % (Auto) [place] % (Auto) Eos % (Auto) Baso % (Auto) Lymph # (Auto) [place] # (Auto) Eos # (Auto) Baso # (Auto) Abs Immat Gran (auto) Absolute Neuts (auto) Absolute Nucleated RBC 0.000 Nucleated RBC % (auto) 0.0 D-Dimer High Sensitivty Sodium 137 Potassium 4.7 Chloride 107 Carbon Dioxide 21 L Anion Gap 14 BUN 30 H Creatinine 1.26 Estim Creat Clear Calc 77.5 Estimated GFR > 60 Random Glucose 99 Lactic Acid 1.3 Calcium 8.9 D Total Bilirubin 0.3 AST 28 ALT 20 Alkaline Phosphatase 75 Total Protein 8.5 H Albumin 3.7 Lipase 58 Urine Color Brown A Urine Appearance Cloudy Urine pH 6.5 Ur Specific [place] 1.025 Urine Protein 300 (3+) H Urine Glucose (UA) Negative Urine Ketones See Note Urine Blood Large (3+) H Urine Nitrite See Note Ur Leukocyte Esterase Small (1+) H Urine RBC >20 H Urine WBC >50 H Ur Squamous Epith Cells 0-2 Urine Bacteria None Seen Hyaline Casts 0-2 05/01/23 05/02/23 07:19 05:44 WBC 12.3 H RBC 4.85 Hgb 14.8 Hct 43.2 MCV 89.1 MCH 30.5 MCHC 34.3 RDW 12.6 Plt Count 288 MPV 8.9 L Immature Gran % (Auto) 0.6 H Neut % (Auto) 68.6 Lymph % (Auto) 22.4 [place] % (Auto) 6.2 Eos % (Auto) 1.9 Baso % (Auto) 0.3 Lymph # (Auto) 2.8 [place] # (Auto) 0.8 Eos # (Auto) 0.2 Baso # (Auto) 0.0 Abs Immat Gran (auto) 0.07 H Absolute Neuts (auto) 8.4 H Absolute Nucleated RBC 0.000 Nucleated RBC % (auto) 0.0 D-Dimer High Sensitivty < 150 Sodium Potassium Chloride Carbon Dioxide Anion Gap BUN Creatinine Estim Creat Clear Calc Estimated GFR Random Glucose Lactic Acid Calcium Total Bilirubin AST ALT Alkaline Phosphatase Total Protein Albumin Lipase Urine Color Urine Appearance Urine pH Ur Specific [place] Urine Protein Urine Glucose (UA) Urine Ketones Urine Blood Urine Nitrite Ur Leukocyte Esterase Urine RBC Urine WBC Ur Squamous Epith Cells Urine Bacteria Hyaline Casts Airway Mallampati Class: II TM Dist: >3cm Neck ROM: Limited Heart: rrr Lungs: cta Assessment and Plan Assessment Anesthesia Assessment: Anesthesia Plan Discussed Final Anesthetic Review Family History of Problems with Anesthesia: No History of Problems with Anesthesia: No NPO: Yes ASA Class: II Final Preanesthetic Review: No Changes in Pt Med Stat, Meds/Allgs Chart Reviewed, Consent Obtained/Reviewed and Anes Risks/Benef Reviewed Patient Risk: Intermediate Procedure Risk: Intermediate Anesthetic Plan Anesthetic Plan: GA and Agree w/ Assess. and Plan Disposition: Standard PACU
--- NOTE | 2023-05-03 11:34 | HO.POSTANES ---
Post Anesthesia Evaluation Post Anesthesia Evaluation Date of Service: 05/03/23 Vital Signs: Vital Signs Temp Pulse Resp BP Pulse Ox O2 Del Method 05/03/23 07:57 98.1 F 61 18 123/71 95 Room Air 05/03/23 04:00 96.8 F 68 18 154/87 H 97 Room Air Anesthesia: General Mental Status: Awake Pain Control: Satisfactory Nausea/Vomiting: None Hydration: Adequate Anesthesia-Related Issues: No Anes. Related Issues
--- NOTE | 2023-05-03 12:24 | P.HPSUR_ITS ---
Pre-Procedural Eval Section A Date of Service: 05/03/23 The patient is an INPATIENT: No Changes since office visit: No Cold of Flu in the past 2 weeks, No New Medical Problems, No Changes in Medication and No Patient answered all questions The History & Physical has been completed within 30 days and I have reviewed it.: Yes Section B Chief Complaint: renal colic Details of Present Illness: cystoscopy, left stent removal, ureteroscopy, laser, basket, stent Allergies: Allergies Allergy/AdvReac Type Severity Reaction Status Date / Time tramadol Allergy Chest Pain Verified 05/03/23 11:56 Review of Systems Sugical H&P ROS: Negative: Constitution, Cardiovascular, Respiratory, Neuro logical, Psychiatric, Hem-Onc, Allergic/Immunologic, Gastrointestinal, Genitourinary, Musculoskeletal, Integumentary, Endocrine and Eyes/Ears/Nose/Throat Exam Surgical H&P Exam: Normal: HEENT, Normal: Heart, Normal: Lungs, Normal: Extremities, Normal: Abdomen, Normal: Skin and Normal: Neurological Plan Diagnosis/Plan: Unchanged (cystoscopy, left ureteroscopy) I have reviewed the history and physical and performed a pertinent physical examination on my patient. No changes have occurred unless specified. Time Spent With Patient Time: Total time managing care of this patient today ____ minutes.
--- NOTE | 2023-05-03 12:27 | P.PNUR_ITS ---
Subjective Subjective Date of Service: 05/03/23 Interval history: persistent pain plan for procedure Physical Exam 2 Vital Signs: Vital Signs: Last Vital Signs Temp 97.6 F 05/03/23 11:44 Pulse 74 05/03/23 11:44 Resp 16 05/03/23 11:44 BP 158/88 H 05/03/23 11:44 Pulse Ox 97 05/03/23 11:44 O2 Del Method Room Air 05/03/23 11:44 BMI result Body Mass Index 30.4 Const: General: cooperative, healthy appearing, comfortable and no acute distress Orientation/consciousness: patient oriented x3 HEENT: Face and sinus: Yes normal facial exam Mouth: moist mucous membranes Neck: Neck: Yes normal visual inspection, Yes full ROM and Yes trachea midline Chest: Chest palpation & inspection: normal inspection of the chest Resp: Effort & Inspection: normal respiratory effort, able to speak in complete sentences and no respiratory distress GI: Inspection: Yes normal to inspection Back/Spine/Pelvis: Cervical Spine: normal cervical lordosis Thoracic/Lumbar Spine: thoracic and lumbar spine normal to inspection Skin: General skin exam: no rashes or lesions noted Neuro: General: patient oriented x3, tone normal and moves all extremities Extrem: General: Yes normal to inspection and Yes capillary refill normal Urology Results Labs 05/02/23 05:44 05/01/23 03:46 Progress Note: A&P Assessment and plan (1) Left renal stone: Status: Acute (2) Left flank pain: Status: Acute Time Spent With Patient Time: Total time managing care of this patient today ____ minutes. Progress Note: Quality Stroke Does the patient have a stroke diagnosis?: No
--- NOTE | 2023-05-03 14:02 | P.OP_ITS ---
Operative Note Operative Note Date of Service: 05/03/23 Narrative: PreOperative Diagnosis: Left stent, left impacted UPJ stone Post Operative Diagnosis: Same Procedure: - cystoscopy, left retrograde, - left stent removal - left ureteric dilatation on fluoroscopy - left ureteroscopy, laser lithotripsy, stone basketing - modifier 22 50% longer than typical 45 minutes - left stent placement Surgeon: Dr Cruz Benavides Anesthesia: General Indications for procedure: Placement of left stent a 16 mm impacted UPJ stone at an outside facility. Pr esented through emergency room with persistent flank pain. Did not tolerate conservative therapy. Recommend intervention with ureteroscopy and laser lithotripsy of stone Procedure: After informed consent was verified patient was brought to the operating placed in supine position. Anesthesia was administered per protocol. Patient was placed in modified dorsal lithotomy position and prepped and draped in a sterile fashion. Safety pause time-out and side of surgery confirmed. Antibiotics confirmed. 22 Macedonian cystoscope was inserted per urethra. Bladder was normal in its entirety. Both ureteric orifices were in normal position. Stent was emerging from the left ureteric orifice The left ureteric orifice was cannulated and a retrograde examination was per formed. Stone seen at proximal UPJ. A Sensor guidewire was placed up to the level of the renal pelvis under fluoroscopy. An attempt was made to remove the indwelling left stent It was coiled behind the stone and unable to be easily removed. The rigid cystoscope was removed and the inner cannula of ureteric access sheath was used under fluoroscopy to dilate the ureteric orifice. The ureteric access sheath was placed and the inner cannula removed. The digital flexible ureteral scope was placed. Scope was unable to be navigated past the indwelling stent. The ureteric access sheath was then removed leaving in place the safety wire. The stent was grasped and pulled. A Glidewire was placed through this stent up to the level of the kink and then the entire stent plus while was able to be removed around the stone. At this point the access sheath was placed back over the wire and the digital scope placed up to the stone. Using dusting settings the stone was broken into small pieces. This took approximately 45 minutes. This is 50% longer than typical. A decision was made not to try to remove any fragments with a basket but instead place a stent. At the completion of the stone procedure a Sensor wire was placed back into the renal pelvis. The rigid cystoscope was backloaded over the wire and advanced into the bladder. A 7 Macedonian by cm 26 double-J stent was placed into the renal pelvis and bladder under a combination of fluoroscopy and direct visualization. The bladder was emptied. The patient tolerated the procedure well and was extubated in the operating room, and transferred in stable condition to the recovery area. ESWL will be required nausea try to break small fragments that were left in the kidney. Pathology: [] Drains: []
[2023-05-03] MEDS: 0.9 % Sodium Chloride Flush 3 ML SYRINGE IVFLUSH (15:41)
[2023-05-03] MEDS: Ketorolac Tromethamine 15 MG/ML VIAL IVPUSH (19:37)
[2023-05-04] MEDS: Ketorolac Tromethamine 15 MG/ML VIAL IVPUSH ×2 (01:14→09:03)
[2023-05-04 02:58] VITALS: BP 126/69; PULSE 75; RESP 16; TEMP 36; O2SAT 94
[2023-05-04] MEDS: cefTRIAXone sodium 1 GM in 0.9 % Sodium Chloride 50 ML IV (06:23)
[2023-05-04 07:58] VITALS: BP 138/77; PULSE 83; RESP 18; TEMP 36.7; O2SAT 95
[2023-05-04] MEDS: 0.9 % Sodium Chloride Flush 3 ML SYRINGE IVFLUSH (09:04)
--- NOTE | 2023-05-04 09:37 | HO.POSTANES ---
Post Anesthesia Evaluation Post Anesthesia Evaluation Date of Service: 05/04/23 Vital Signs: Vital Signs Temp Pulse Resp BP Pulse Ox O2 Del Method 05/04/23 07:58 98.0 F 83 18 138/77 95 Room Air 05/04/23 02:58 96.8 F 75 16 126/69 94 Room Air 05/03/23 23:20 97.2 F 97 16 119/62 94 Room Air Anesthesia: General LMA Mental Status: Awake Pain Control: Satisfactory Nausea/Vomiting: None Hydration: Adequate Anesthesia-Related Issues: No Anes. Related Issues
--- NOTE | 2023-05-04 09:53 | P.PNUR_ITS ---
Subjective Subjective Date of Service: 05/04/23 Interval history: Significant improvement following procedure yesterday Pain control Tolerating diet Plan for discharge Plan for left ESWL with stent removal in May Physical Exam 2 Vital Signs: Vital Signs: Last Vital Signs Temp 98.0 F 05/04/23 07:58 Pulse 83 05/04/23 07:58 Resp 18 05/04/23 07:58 BP 138/77 05/04/23 07:58 Pulse Ox 95 05/04/23 07:58 O2 Del Method Room Air 05/04/23 07:58 BMI result Body Mass Index 30.4 Const: General: cooperative, healthy appearing, comfortable and no acute distress Orientation/consciousness: patient oriented x3 HEENT: Face and sinus: Yes normal facial exam Mouth: moist mucous membranes Neck: Neck: Yes normal visual inspection, Yes full ROM and Yes trachea midline Chest: Chest palpation & inspection: normal inspection of the chest Resp: Effort & Inspection: normal respiratory effort, able to speak in complete sentences and no respiratory distress GI: Inspection: Yes normal to inspection Back/Spine/Pelvis: Cervical Spine: normal cervical lordosis Thoracic/Lumbar Spine: thoracic and lumbar spine normal to inspection Skin: General skin exam: no rashes or lesions noted Neuro: General: patient oriented x3, tone normal and moves all extremities Extrem: General: Yes normal to inspection and Yes capillary refill normal Urology Results Labs 05/02/23 05:44 05/01/23 03:46 Progress Note: A&P Assessment and plan (1) Left renal stone: Status: Acute (2) Left flank pain: Status: Acute Plan Discharge Time Spent With Patient Time: Total time managing care of this patient today ____ minutes. Progress Note: Quality Stroke Does the patient have a stroke diagnosis?: No
--- NOTE | 2023-05-04 09:59 | PM.DS ---
DS: Providers Provider Date of Service: 05/04/23 Date of admission: 05/01/23 16:35 Primary care physician: Toni Watts MD DS: Diagnosis Discharge Diagnosis (1) Left renal stone: Status: Acute (2) Left flank pain: Status: Acute DS: Summary Hospital Course Hospital Course: Admitted for non controlled left flank pain following stent placement at outside facility Imaging showed obstructing proximal ureteric left stone causing renal colic Underwent ureteroscopy with laser lithotripsy and stent replacement with resolution of stent pain Will plan on follow-up ESWL statement Time spent discussing smoking cessation with patient: 3 to 10 minutes Status at Discharge Functional status at discharge: independent ambulation Overall status at discharge: patient is back to baseline Time Attestation Discharge coordination time: Less than 30 minutes Quality: Safe Use of Opioids Does Pt have an Active Cancer Diagnosis on the Problem List?: No Quality: Stroke Does the patient have a stroke diagnosis?: No Physical Exam Vital Signs: Vital Signs: Last Vital Signs Temp 98.0 F 05/04/23 07:58 Pulse 83 05/04/23 07:58 Resp 18 05/04/23 07:58 BP 138/77 05/04/23 07:58 Pulse Ox 95 05/04/23 07:58 O2 Del Method Room Air 05/04/23 07:58 BMI result Body Mass Index 30.4 DS: Data Data Completed and Pending Labs on day of discharge: Preliminary micro results at discharge 05/01/23 07:19 Blood Culture - Preliminary Blood - Venous No growth after 48 hours. 05/01/23 07:05 Blood Culture - Preliminary Blood - Venous No growth after [address] scan - abdomen: Radiologist's impression: ITS Impressions Abdomen/Pelvis CT 05/01/23 07:30 IMPRESSION: * Moderate left hydronephrosis is caused by a ureteropelvic junction stone. Also, a small calyceal stone is present in the left lower pole. The left ureteral stent is in satisfactory position. * Diverticulosis of the sigmoid colon without diverticulitis. * Diffuse hepatic steatosis. Discharge Plan Discharge Anticipated Discharge Date/Time: 05/04/23 09:55 Patient Disposition: Home, Self-Care Discharge Diagnosis: Obstructing left renal stone, elevated creatinine Referrals: Toni Watts MD [Primary Care Provider] - 1 Week Discharge Medications: New sulfamethoxazole-trimethoprim [Bactrim DS] 800-160 mg tablet 1 tab PO BID 3 Days Qty: 6 0RF tamsulosin 0.4 mg capsule 0.4 mg PO BEDTIME 30 Days Qty: 30 1RF phenazopyridine [Pyridium] 100 mg tablet 100 mg PO TID PRN (Reason: Spasm) 4 Days Qty: 12 0RF naproxen 500 mg tablet 500 mg PO BID PRN (Reason: pain) 7 Days Qty: 14 0RF oxycodone 5 mg tablet 5 mg PO Q8H PRN (Reason: pain) 3 Days Qty: 8 0RF Rx Instructions: Partial Fill upon patient request. Continued amlodipine 5 mg tablet 5 mg PO DAILY acetaminophen 500 mg tablet 500 mg PO Q6H PRN (Reason: mild pain) methocarbamol 750 mg tablet 750 mg PO Q6H PRN (Reason: muscle spasm) tamsulosin 0.4 mg capsule 0.4 mg PO QAM docusate sodium 100 mg capsule 100 mg PO BID diclofenac sodium 1 % gel 1 inch topical BID omega 5-bbi-orp-fish oil 300 mg (120 mg- 180mg)-1,000 mg capsule 1 cap PO QAM omeprazole 40 mg Capsule,Delayed Release(Dr/Ec) 40 mg PO DAILY Discharge Orders: Discharge Order (Routine); Ordered 05/04/23 Ordered By: Cruz Benavides Diet: Advance to usual diet Activity on Discharge: As tolerated Stand Alone Forms: Patient Portal Discharge page Care Plan Goals: Stone with ESWL Health Concerns: Stone with ESWL Plan of Treatment: Stone with ESWL Assessment: Stone with ESWL Patient Instructions: Flank Pain (ED), Hydronephrosis (ED)
[2023-05-04 11:14] VITALS: O2SAT 95
--- NOTE | 2023-05-04 11:41 | MHC.CM.PN ---
HOME - SELF CARE TODAY RN AND UNIT AWARE OF PLAN
== END 2023-05-04 13:01 | disposition home or self-care (01) | DRG 446 ==
LOC: HO.ED 10:41 → HO.EDOVER 16:41 → HO.S3 17:02
PROVIDERS: Physician Assistant; Admitting Provider Urology; Emergency Provider Student in an Organized Health Care Education/Training Program; PCP Internal Medicine Geriatric Medicine; Visit Provider Urology
PROC: 0TC78ZZ Extirpation of Matter from Left Ureter, Via Natural or Artificial Opening Endoscopic (ICD-10-PCS; principal; 2023-05-03 12:00)
DX: N13.2 Hydronephrosis with renal and ureteral calculous obstruction (principal); Z79.899 Other long term (current) drug therapy
CPT/HCPCS: 36415; 74176; 80053; 81001; 83605; 83690; 85025; 85027; 85379; 87040; 87086; 99285; C1758; C1769; C1894; C2617; J0696; J1100; J1170; J1885; J1956; J2250; J2270; J2405; J2704; J3010; Q9967

== ENCOUNTER → 2023-05-01 16:35 | Outpatient (BNV) | payer MEDICAID, SELFPAY | PROVIDERS: Admitting Provider Urology; Emergency Provider Student in an Organized Health Care Education/Training Program; PCP Internal Medicine Geriatric Medicine; Visit Provider Urology | DX: N20.0 Calculus of kidney (principal); R10.9 Unspecified abdominal pain | CPT/HCPCS: 52356; 99222; 99238 ==

== ENCOUNTER 2023-05-15 08:07 | Emergency (ER) | payer MEDICAID, SELFPAY ==
--- NOTE | ~2023-05-15 | CT_ITS ---
EXAMINATION: CT ABDOMEN AND PELVIS WITHOUT CONTRAST CLINICAL INFORMATION: Abdominal pain COMPARISON: 05/01/2023 TECHNIQUE: Multidetector volumetric imaging was performed from the superior aspect of the liver through the pubic symphysis. Sagittal and coronal reformatted images were obtained on the technologist's workstation. This CT examination was performed using dose optimization techniques as appropriate, variously including the following: *Automated exposure control *Adjustment of mA and/or kV according to patient size (this includes techniques or standardized protocols for targeted exams where dose is matched to indication/reason for exam; i.e. extremities or head) *Use of iterative reconstruction technique DLP: 719 mGy-cm FINDINGS: LUNG BASES: The visualized lung bases are unremarkable. LIVER, GALLBLADDER, AND BILIARY TREE: The liver is prominent and demonstrates evidence of mild steatosis. No focal lesion or intrahepatic biliary dilatation. The gallbladder is unremarkable with no evidence of radiopaque gallstones, gallbladder wall thickening, or obvious pericholecystic inflammatory changes. PANCREAS: Unremarkable. SPLEEN: Unremarkable. ADRENAL GLANDS: Unremarkable. KIDNEYS AND URETERS: The left ureteral stent is again identified and there is no hydronephrosis at this time. The stent terminates within the bladder. I do not see evidence for right or left hydronephrosis or perinephric collection. The previously noted left UPJ stone is now not evident however there are calcifications seen residing within the dependent portion of the left collecting system, measuring up to 8 mm with a few smaller adjacent fragments noted. This likely reflects the previously seen UPJ stone. A complex cyst with punctate calcification along the posterior upper left kidney is again observed at 5 mm. No change. BLADDER: Unremarkable. GASTROINTESTINAL TRACT: No bowel obstruction or right or left lower quadrant inflammatory change. There is mild sigmoid diverticular disease but no diverticulitis. ABDOMINAL WALL: No significant hernia is appreciated. LYMPH NODES: Normal. VASCULAR: Unremarkable. PELVIC VISCERA: Unremarkable. OSSEOUS STRUCTURES: Degenerative changes in the lower lumbar spine. No fracture. CT/CT abdomen pelvis wo IV con IMPRESSION: The previously noted left UPJ stone now appears more proximal in orientation, within the dependent inferior portion of the left collecting system and appears to be composed of a few smaller fragments. The left ureteral stent itself is in stable position and there is no hydronephrosis of this time. Fleischner guidelines were followed.
[2023-05-15 08:20] VITALS: BP 147/70; PULSE 74; RESP 18; TEMP 36.6; O2SAT 97; BMI 34.5
--- NOTE | 2023-05-15 08:56 | ED_ITS ---
HPI - Male Genitourinary General Chief complaint: Urogenital-Male Stated complaint: Lower abd pain, trouble using bathroom Time Seen by Provider: 05/15/23 08:56 Source: patient Mode of arrival: ambulatory Limitations: no limitations History of Present Illness HPI Narrative: Patient is a 47 year old assigned male at with a history of kidney stone presenting to the emergency department today with lower abdominal pain and back pain. Patient states that he has been having low back pain, abdominal pain, and the urge to void but being unable to over the last few days. Patient states that he had a stent placed on 05/04/2023 by our Urology group to help pass a left sided stone but has not passed a stone yet. Patient denies any dizziness, lightheadedness, nausea, vomiting, fever, chills, blurry vision, double vision, loss of vision, chest pain, difficulty breathing, shortness of breath, back pain, night sweats, pain with urination, increased urinary frequency, blood in his urine or stool, syncope or a near syncopal episode, recent trauma or falls, bowel incontinence, bladder incontinence, bowel retention, bladder retention, or any other complaints at this time. Onset (ago): day(s) Duration: constant Severity: mild Relieving factors: none Exacerbating factors: none Associated symptoms: Reports denies other symptoms Related Data Home Medications Medication Instructions Recorded Confirmed acetaminophen 500 mg tablet 500 mg PO Q6H PRN mild pain 05/01/23 05/01/23 amlodipine 5 mg tablet 5 mg PO DAILY 05/01/23 05/01/23 diclofenac sodium 1 % topical gel 1 inch topical BID pain 05/01/23 05/01/23 docusate sodium 100 mg capsule 100 mg PO BID 05/01/23 05/01/23 methocarbamol 750 mg tablet 750 mg PO Q6H PRN muscle spasm 05/01/23 05/01/23 omega-3 300 mg-dha 120 mg-epa 180 1 cap PO QAM 05/01/23 05/01/23 mg-fish oil 1,000 mg capsule omeprazole 40 mg capsule,delayed 40 mg PO DAILY 05/01/23 05/01/23 release tamsulosin 0.4 mg capsule 0.4 mg PO QAM 05/01/23 05/01/23 Previous Rx's Medication Instructions Recorded naproxen 500 mg tablet 500 mg PO BID PRN pain 7 days #14 05/04/23 tabs oxycodone 5 mg tablet 5 mg PO Q8H PRN pain 3 days #8 tabs 05/04/23 phenazopyridine 100 mg tablet 100 mg PO TID PRN Spasm 4 days #12 05/04/23 (Pyridium) tabs sulfamethoxazole 800 1 tab PO BID 3 days #6 tabs 05/04/23 mg-trimethoprim 160 mg tablet (Bactrim DS) tamsulosin 0.4 mg capsule 0.4 mg PO BEDTIME 30 days #30 caps 05/04/23 cephalexin 500 mg capsule 500 mg PO Q6H 7 days #28 caps 05/15/23 Allergies Allergy/AdvReac Type Severity Reaction Status Date / Time tramadol Allergy Chest Pain Verified 05/15/23 08:20 Review of Systems 2 Constitutional: Constitutional: Reports no additional constitutional complaints, Denies chills, Denies fever(s) and Denies night sweats Eyes: Eyes: Reports no additional eye complaints, Denies blurry vision, Denies change in vision, Denies diplopia, Denies eye discharge, Denies loss of vision and Denies eye pain ENT: Denies dizziness Cardiovascular: Cardiovascular: Reports no additional cardiovascular complaints, Denies chest pain, Denies lightheadedness, Denies Loss of Consciousness and Denies dyspnea Respiratory: Respiratory: Reports no additional respiratory complaints and Denies dyspnea Gastrointestinal: Gastrointestinal: Reports no additional gastrointestinal complaints, Reports abdominal pain, Denies melena, Denies hematochezia, Denies change in bowel habits and Denies change in stool character Genitourinary: Genitourinary: Reports no additional male genitourinary complaints, Denies hematuria, Denies oliguria, Denies difficulty urinating, Denies dysuria, Denies urinary frequency, Denies urinary hesitancy, Denies urinary incontinence and Reports urinary urgency Musculoskeletal: Musculoskeletal: Reports no additional musculoskeletal complaints, Reports back pain, Denies numbness and Denies tingling Neurologic: Denies dizziness, Denies loss of vision, Denies numbness and Denies tingling Psychiatric: Psychiatric: Reports no additional psychiatric complaints Endocrine: Endocrine: Reports no additional endocrine complaints Hematologic/Lymphatic: Hematologic/Lymphatic: Reports no additional hematologic/lymphatic complaints Allergic/Immunologic: Allergic/Immunologic: Reports no additional allergic/immunologic complaints PMFSH Past Medical History Attestation statement: The following information was validated with the patient. Source: old records reviewed and nursing notes reviewed Social History Social History Household Members: Children Housing: House Do you presently have visiting nurse or other home services: No Patient Tobacco Use Status: Never used Tobacco Second Hand Smoke Exposure: No Advance Directives: Yes Advance Directives on File: Yes Advance Directives Date on File: 05/06/23 service: No Physical Exam 2 Vital Signs: Vital Signs: Last Vital Signs Temp 97.8 F 05/15/23 08:20 Pulse 74 05/15/23 08:20 Resp 18 05/15/23 08:20 BP 147/70 H 05/15/23 08:20 Pulse Ox 97 05/15/23 08:20 O2 Del Method Room Air 05/15/23 08:20 BMI result Body Mass Index 34.5 Const: General: cooperative, no acute distress, alert and awake Nutritional Appearance: well nourished Orientation/consciousness: patient oriented x3 Limitations: no limitations HEENT: Head: Yes normal to inspection and Yes atraumatic Ears: hearing grossly normal bilaterally and external ears normal General nose exam: Normal external nose present, no nasal discharge noted and no epistaxis Face and sinus: Yes normal facial exam, No abrasion and No laceration Mouth: Normal oral and palatal mucosa present, no drooling and no muffled voice Eyes: General: appearance normal, both eyes and all related structures P eriorbital: periorbital findings normal Eyelids: Yes eyelids normal C onjunctivae: conjunctivae normal Pupils: Equal, round and reactive pupils present EOM: EOMs intact bilaterally Neck: Neck: Yes normal visual inspection, Yes full ROM and Yes no lymphadenopathy Chest: Chest palpation & inspection: normal inspection of the chest Resp: Effort & Inspection: normal respiratory effort and able to speak in complete sentences GI: Inspection: Yes normal to inspection Palpation (GI): Soft to palpation, not firm, nontender, no guarding and not rigid Neuro: General: patient oriented x3 and moves all extremities Cranial nerves: Yes Equal, round and reactive pupils present Cognition (Neuro): n ormal cognition Motor exam (neuro): 5/5 motor strength present throughout Sensory Exam: Normal double simultaneous stimulation for sensation C oordination: [id number] test normal Extrem: General: Yes normal to inspection, Yes full ROM and Yes capillary refill normal Psych: Appearance: grossly normal Mental Status: mental status grossly normal Affect: normal affect Attitude: cooperative Thought process: N ormal thought process present Thought content: Normal thought content present Insight: Good insight present (Psych) Medications Administered Discontinued Medications Generic Name Dose Route Start Last Admin Trade Name Earl PRN Reason Stop Dose Admin Sodium Chloride 1,000 mls @ 999 mls/hr 05/15/23 09:00 05/15/23 11:03 Ns IV 05/15/23 10:00 Infused .Q1H1M CRESCENCIO Infusion Medical Decision Making Medical Decision Making [facility] Narrative: Patient is a 47 year old assigned male at with a history of kidney stones presenting to the emergency department today with abdominal pain, low back pain, and increased urinary urgency. Patient's physical exam was unremarkable. Patient's blood work was unremarkable. Patient's urine showed a possible UTI. Patient's abdomen/pelvis CT showed a left UPJ stone that is now more proximal and a stable left ureteral stent with no hydronephrosis. I spoke to the urologist who recommended covering with keflex and having the patient take OTC medication for constipation as well as following up on an outpatient basis in the office. I explained my physical exam findings as well as all test results to the patient. I answered all questions asked by the patient. I stressed the importance of the patient taking his medication as prescribed. I stressed the importance of the patient following up with his primary care provider and his urologist. I stressed the importance of the patient returning to the emergency department immediately if his symptoms were to worsen or if he were to develop any dizziness, shortness of breath, difficulty breathing, chest pain, blurry vision, loss of vision, nausea, vomiting, abdominal pain, fever, chills, back pain, or any other complaints. Patient verbalized agreement and understanding with this treatment plan and discharge. Differential Diagnosis Differential Diagnoses: The differential diagnosis associated with the presentation includes Kidney stone Abdominal pain Constipation Admission/Observation Consideration of admission/observation: Escalation of care including admission/observation considered Patient would have been admitted to the hospital had his work up had any findings where hospital admission was appropriate and his clinical presentation warranted hospital admission. Consult Healthcare Provider Management of the patient was discussed with: Supervisor [employer] (spoke to the urologist as noted in the MDM Rationale portion of this note.) Lab Data [facility] Lab Attestation statement: I reviewed the patient's lab results. My interpretation of these results are in the MDM Rationale portion of this note. 05/15/23 09:31 05/15/23 09:31 Labs: Lab Results 05/15/23 05/15/23 05/15/23 Range/Units 09:01 09:30 09:31 WBC 11.3 H (4.8-10.8) X10*3/uL RBC 4.91 (4.60-5.80) X10*6/uL Hgb 14.6 (14.0-18.0) g/dl Hct 43.7 (42.0-52.0) % MCV 89.0 (80.0-98.0) fL MCH 29.7 (27.0-33.0) pg MCHC 33.4 (31.0-36.0) g/dl RDW 12.5 (11.0-16.0) % Plt Count 264 (160-400) X10*3/uL MPV 9.1 L (9.4-12.4) fL Immature Gran % (Auto) 0.3 (0.0-0.4) % Neut % (Auto) 72.1 (45-73) % Lymph % (Auto) 19.8 L (20-40) % [place] % (Auto) 6.3 (2-11) % Eos % (Auto) 1.2 (0-4) % Baso % (Auto) 0.3 (0-2) % Lymph # (Auto) 2.2 (1.2-4.9) X10*3/uL [place] # (Auto) 0.7 (0.1-1.2) X10*3/uL Eos # (Auto) 0.1 (0.0-0.4) X10*3/uL Baso # (Auto) 0.0 (0.0-0.2) X10*3/uL Abs Immat Gran (auto) 0.03 (0.00-0.03) X10*3/uL Absolute Neuts (auto) 8.1 (2.0-8.3) x10*3/uL Absolute Nucleated RBC 0.000 (0.0-0.012) X10*3/uL Nucleated RBC % (auto) 0.0 (0.0-0.2) /100WBC PT 10.8 L (11.1-13.3) SEC INR 0.9 (0.9-1.1) APTT 30.3 (26.0-36.4) SEC Sodium 139 (135-145) mmol/L Potassium 4.1 (3.3-5.1) mmol/L Chloride 105 (96-108) mmol/L Carbon Dioxide 28 (22-29) mmol/L Anion Gap 10 L (12-20) BUN 11 (9-16) mg/dL Creatinine 0.79 (0.5-1.4) mg/dL Estim Creat Clear Calc 131.5 Estimated GFR > 60 Random Glucose 95 (60-115) mg/dL Calcium 9.5 D (8.4-10.2) mg/dL Magnesium 2.0 (1.6-2.6) mg/dL Total Bilirubin 0.5 (0.0-1.0) mg/dL AST 28 (5-37) U/L ALT 33 (0-40) U/L Alkaline Phosphatase 94 (39-117) U/L Total Protein 8.4 H (6.5-8.0) g/dL Albumin 3.9 (3.5-5.0) g/dL Urine Color Dark Yellow Urine Appearance Clear Urine pH 5.5 (5.0-9.0) Ur Specific [place] 1.015 (1.005-1.025) Urine Protein 30 (1+) H (Neg-Trace) mg/dL Urine Glucose (UA) Negative (Negative) mg/dL Urine Ketones Negative (Negative) mg/dL Urine Blood Large (3+) H (Negative) Urine Nitrite Negative (Negative) Ur Leukocyte Esterase Moderate (2+) H (Negative) Urine RBC >20 H (0-2) /HPF Urine WBC 11-20 H (0-5) /HPF Ur Squamous Epith Cells 0-2 (0-2) /HPF Urine Bacteria None Seen (None Seen) Hyaline Casts 0-2 (0-2) /LPF Influenza Type A (PCR) NEGATIVE (Negative) Influenza Type B (PCR) NEGATIVE (Negative) RSV RNA Qual (PCR) NEGATIVE (Negative) SARS-CoV-2 RNA (RT-PCR) NEGATIVE (Negative) Independent Interpretation I performed an independent interpretation of an: CT Scan Interpretation: My interpretation is in agreement with the radiologist's impression of this imaging study. - EXAMINATION: CT ABDOMEN AND PELVIS WITHOUT CONTRAST CLINICAL INFORMATION: Abdominal pain COMPARISON: 05/01/2023 TECHNIQUE: Multidetector volumetric imaging was performed from the superior aspect of the liver through the pubic symphysis. Sagittal and coronal reformatted images were obtained on the technologist's workstation. This CT examination was performed using dose optimization techniques as appropriate, variously including the following: *Automated exposure control *Adjustment of mA and/or kV according to patient size (this includes techniques or standardized protocols for targeted exams where dose is matched to indication/reason for exam; i.e. extremities or head) *Use of iterative reconstruction technique DLP: 719 mGy-cm FINDINGS: LUNG BASES: The visualized lung bases are unremarkable. LIVER, GALLBLADDER, AND BILIARY TREE: The liver is prominent and demonstrates evidence of mild steatosis. No focal lesion or intrahepatic biliary dilatation. The gallbladder is unremarkable with no evidence of radiopaque gallstones, gallbladder wall thickening, or obvious pericholecystic inflammatory changes. PANCREAS: Unremarkable. SPLEEN: Unremarkable. ADRENAL GLANDS: Unremarkable. KIDNEYS AND URETERS: The left ureteral stent is again identified and there is no hydronephrosis at this time. The stent terminates within the bladder. I do not see evidence for right or left hydronephrosis or perinephric collection. The previously noted left UPJ stone is now not evident however there are calcifications seen residing within the dependent portion of the left collecting system, measuring up to 8 mm with a few smaller adjacent fragments noted. This likely reflects the previously seen UPJ stone. A complex cyst with punctate calcification along the posterior upper left kidney is again observed at 5 mm. No change. BLADDER: Unremarkable. GASTROINTESTINAL TRACT: No bowel obstruction or right or left lower quadrant inflammatory change. There is mild sigmoid diverticular disease but no diverticulitis. ABDOMINAL WALL: No significant hernia is appreciated. LYMPH NODES: Normal. VASCULAR: Unremarkable. PELVIC VISCERA: Unremarkable. OSSEOUS STRUCTURES: Degenerative changes in the lower lumbar spine. No fracture. CT/CT abdomen pelvis wo IV con IMPRESSION: The previously noted left UPJ stone now appears more proximal in orientation, within the dependent inferior portion of the left collecting system and appears to be composed of a few smaller fragments. The left ureteral stent itself is in stable position and there is no hydronephrosis of this time. Fleischner guidelines were followed. Dictated By: Osiel Angel MD Signed By: Electronically signed by Osiel Angel MD 05/15/23 102 Radiology Impression Discussion of test interpretation with radiology: I have reviewed the radiologist's reading. Prescription Management I considered prescription management with: Antibiotic (patient prescribed an antibiotic to cover possible UTI) Critical Care Time Critical Care Time Critical Care Time: Yes Total Critical Care Time: 35 Attestation: I spent 35 minutes of Critical Care Time with this patient. This does not include time spent on separately reported billable procedures. Discharge Plan Discharge Clinical Impression: Urinary tract infection, Constipation Patient Disposition: Home, Self-Care Instructions: Constipation (DC), Urinary Tract Infection in Men (DC) Additional Instructions: Follow up with your primary care provider and the urologist. You can take milk of magensia or magnesium citrate over the counter to help with your consitpation. Return to the emergency department immediately if your symptoms worsen or if you develop any dizziness, shortness of breath, difficulty breathing, chest pain, blurry vision, loss of vision, nausea, vomiting, abdominal pain, fever, chills, back pain, or any other complaints. Umang un seguimiento con schaefer proveedor de atenci?n primaria y el ur?logo. Puede celestina leche de magensia o citrato de magnesio sin receta para ayudar con el estre?imiento. Regrese al departamento de emergencias inmediatamente si rufina s?ntomas empeoran o si presenta mareos, dificultad para respirar, dificultad para respirar, dolor en el pecho, visi?n borrosa, p?rdida de la visi?n, n?useas, v?mitos, dolor abdominal, fiebre, escalofr?os, dolor de espalda o cualquier otras quejas. Prescriptions: New cephalexin 500 mg capsule 500 mg PO Q6H 7 Days Qty: 28 0RF No Action amlodipine 5 mg tablet 5 mg PO DAILY acetaminophen 500 mg tablet 500 mg PO Q6H PRN (Reason: mild pain) methocarbamol 750 mg tablet 750 mg PO Q6H PRN (Reason: muscle spasm) tamsulosin 0.4 mg capsule 0.4 mg PO QAM docusate sodium 100 mg capsule 100 mg PO BID diclofenac sodium 1 % gel 1 inch topical BID omega 9-lxl-oky-fish oil 300 mg (120 mg- 180mg)-1,000 mg capsule 1 cap PO QAM omeprazole 40 mg Capsule,Delayed Release(Dr/Ec) 40 mg PO DAILY sulfamethoxazole-trimethoprim [Bactrim DS] 800-160 mg tablet 1 tab PO BID 3 Days Qty: 6 0RF tamsulosin 0.4 mg capsule 0.4 mg PO BEDTIME 30 Days Qty: 30 1RF phenazopyridine [Pyridium] 100 mg tablet 100 mg PO TID PRN (Reason: Spasm) 4 Days Qty: 12 0RF naproxen 500 mg tablet 500 mg PO BID PRN (Reason: pain) 7 Days Qty: 14 0RF oxycodone 5 mg tablet 5 mg PO Q8H PRN (Reason: pain) 3 Days Qty: 8 0RF Rx Instructions: Partial Fill upon patient request. Referrals: [facility] [Provider Group] (Follow up with the urologist office. Seguimiento con el consultorio del ur?logo.) Name,MD Toni [Primary Care Provider] - Print Language: Amharic
--- NOTE | 2023-05-15 09:10 | PC.NURSE ---
Patient bladder scanned x 3 times- highest amount obtained 88mls.
[2023-05-15] MEDS: 0.9 % Sodium Chloride 1,000 ML 999 ML IV (09:33)
[2023-05-15 09:46] LABS: MANUAL DIFF FLAG NO
[2023-05-15 09:48] LABS: Basophils Percent Auto 0.3 % (0-2); Eosinophils Absolute Auto 0.1 X10*3/uL (0.0-0.4); Eosinophils Percent Auto 1.2 % (0-4); Hematocrit 43.7 % (42.0-52.0); Hemoglobin 14.6 g/dl (14.0-18.0); Imm Gran Abs Auto 0.03 X10*3/uL (0.00-0.03); Imm Gran Pct Auto 0.3 % (0.0-0.4); Lymphocytes Absolute Auto 2.2 X10*3/uL (1.2-4.9); Lymphocytes Percent Auto 19.8 % (20-40); Mean Corpuscular HGB Conc 33.4 g/dl (31.0-36.0); Mean Corpuscular Hemoglobin 29.7 pg (27.0-33.0); Mean Platelet Volume 9.1 fL (9.4-12.4); Monocytes Absolute Auto 0.7 X10*3/uL (0.1-1.2); Monocytes Percent Auto 6.3 % (2-11); Neutrophils Absolute Auto 8.1 x10*3/uL (2.0-8.3); Neutrophils Percent Auto 72.1 % (45-73); Platelet Count 264 X10*3/uL (160-400); Red Blood Count 4.91 X10*6/uL (4.60-5.80); Red Cell Distribution Width 12.5 % (11.0-16.0); White Blood Count 11.3 X10*3/uL (4.8-10.8)
[2023-05-15 09:49] LABS: Appearance Urine Clear; Color Urine Dark Yellow; Glucose Urine UA Negative (Negative); Leukocyte Esterase Urine Moderate (2+) (Negative); Nitrite Urine Negative (Negative); PH 5.5 (5.0-9.0); Specific Gravity - Urine 1.015 (1.005-1.025); UMIC TRIGGER UACC YES; Urine Blood Large (3+) (Negative); Urine Ketones Negative (Negative); Urine Protein 30 (1+) mg/dL (Neg-Trace)
[2023-05-15 09:52] LABS: Bacteria Urine None Seen (None Seen); Hyaline Casts Urine 0-2 /LPF (0-2); RBC Urine >20 /HPF (0-2); Squamous Epithelial Cell Urine 0-2 /HPF (0-2); UACC Culture Trigger YES
[2023-05-15 09:52] LABS: Influenza A PCR NEGATIVE (Negative); Influenza B PCR NEGATIVE (Negative); Resp Syncy Virus RNA Qual PCR NEGATIVE (Negative); SARS COV2 PCR INHOUSE NEGATIVE (Negative)
[2023-05-15 09:53] LABS: INTERNATIONAL NORM RATIO 0.9 (0.9-1.1); Prothrombin Time 10.8 SEC (11.1-13.3)
[2023-05-15 09:55] LABS: Partial Thromboplastin Time 30.3 SEC (26.0-36.4)
[2023-05-15 10:03] LABS: Alanine Aminotransferase 33 U/L (0-40); Albumin Level 3.9 g/dL (3.5-5.0); Anion Gap 10 (12-20); Aspartate Amino Transferase 28 U/L (5-37); Bilirubin Total 0.5 mg/dL (0.0-1.0); Blood Urea Nitrogen 11 mg/dL (9-16); Calcium 9.5 mg/dL (8.4-10.2); Carbon Dioxide 28 mmol/L (22-29); Chloride 105 mmol/L (96-108); Creatinine Clr Calc Pharmacy 131.5; Estimated Glomerular Filt Rate > 60; Glucose Random 95 mg/dL (60-115); Potassium 4.1 mmol/L (3.3-5.1); Sodium 139 mmol/L (135-145); Total Protein 8.4 g/dL (6.5-8.0)
[2023-05-15 10:04] LABS: Alkaline Phosphatase 94 U/L (39-117)
== END 2023-05-15 11:38 | disposition home or self-care (01) ==
PROVIDERS: Physician Assistant Medical; Emergency Provider Emergency Medicine Emergency Medical Services; PCP Internal Medicine Geriatric Medicine
DX: N39.0 Urinary tract infection, site not specified (principal); K59.00 Constipation, unspecified; N20.0 Calculus of kidney; Z96.0 Presence of urogenital implants; Z20.822 Contact with and (suspected) exposure to COVID-19; Z20.828 Contact with and (suspected) exposure to other viral communicable diseases
CPT/HCPCS: 0241U; 36415; 51798; 74176; 80053; 81001; 83735; 85025; 85610; 85730; 87086; 96360; 99284

== ENCOUNTER 2023-05-21 12:37 | Emergency (ER) | payer MEDICAID, SELFPAY ==
--- NOTE | ~2023-05-21 | US_ITS ---
EXAMINATION: US RETROPERITONEAL LIMITED (RENAL ONLY) CLINICAL INFORMATION: Left flank pain History of renal stone. COMPARISON: CT scan abdomen and pelvis 05/15/2023, 05/01/2023 TECHNIQUE: Real-time ultrasound of the kidneys was performed FINDINGS: RIGHT KIDNEY: No images of the right kidney were obtained. LEFT KIDNEY: 11.7 x 5.7 x 5.3 cm (SAG x AP x TRV). The kidney is normal in size, contour, and echogenicity. Renal cortical thickness is normal. 0.4 x 0.3 x 0.4 cm nonobstructing calculus is seen in the lower pole. 1.5 x 1.2 x 1.3 cm upper pole cyst with layering milk of calcium requires no imaging follow-up. No hydronephrosis. Left ureteral stent is seen within the bladder. US/US renal LT IMPRESSION: 1. 0.4 cm nonobstructing calculus in the lower pole of the left kidney. 2. Left ureteral stent is seen within the bladder.
[2023-05-21 13:25] VITALS: BP 145/62; PULSE 74; RESP 18; TEMP 36.5; O2SAT 97; BMI 34.7
--- NOTE | 2023-05-21 13:27 | ED_ITS ---
HPI - Male Genitourinary General Chief complaint: Abdominal Pain Stated complaint: l kidney pain and back pain Time Seen by Provider: 05/22/23 00:56 Source: patient and family Mode of arrival: ambulatory History of Present Illness HPI Narrative: 47-year-old male with history and clinical presentation of no nephrolithiasis and renal colic who presents with continued a left flank pain and was recently seen here on 05/15 and has a follow-up appointment with Urology this next week. He otherwise denies any nausea, vomiting, fever, chills. Related Data Home Medications Medication Instructions Recorded Confirmed acetaminophen 500 mg tablet 500 mg PO Q6H PRN mild pain 05/01/23 05/01/23 amlodipine 5 mg tablet 5 mg PO DAILY 05/01/23 05/01/23 diclofenac sodium 1 % topical gel 1 inch topical BID pain 05/01/23 05/01/23 docusate sodium 100 mg capsule 100 mg PO BID 05/01/23 05/01/23 methocarbamol 750 mg tablet 750 mg PO Q6H PRN muscle spasm 05/01/23 05/01/23 omega-3 300 mg-dha 120 mg-epa 180 1 cap PO QAM 05/01/23 05/01/23 mg-fish oil 1,000 mg capsule omeprazole 40 mg capsule,delayed 40 mg PO DAILY 05/01/23 05/01/23 release tamsulosin 0.4 mg capsule 0.4 mg PO QAM 05/01/23 05/01/23 Previous Rx's Medication Instructions Recorded naproxen 500 mg tablet 500 mg PO BID PRN pain 7 days #14 05/04/23 tabs oxycodone 5 mg tablet 5 mg PO Q8H PRN pain 3 days #8 tabs 05/04/23 phenazopyridine 100 mg tablet 100 mg PO TID PRN Spasm 4 days #12 05/04/23 (Pyridium) tabs sulfamethoxazole 800 1 tab PO BID 3 days #6 tabs 05/04/23 mg-trimethoprim 160 mg tablet (Bactrim DS) tamsulosin 0.4 mg capsule 0.4 mg PO BEDTIME 30 days #30 caps 05/04/23 cephalexin 500 mg capsule 500 mg PO Q6H 7 days #28 caps 05/15/23 oxybutynin chloride 5 mg tablet 5 mg PO BEDTIME PRN bladder spasms 05/22/23 #5 tabs Allergies Allergy/AdvReac Type Severity Reaction Status Date / Time tramadol Allergy Chest Pain Verified 05/15/23 08:20 Review of Systems 2 Review of Systems: Pertinent positives and negatives as stated in HPI PMFSH Past Medical History Source: nursing notes reviewed Onset Date is defined in the Problem List Problems that require an onset date and time if occurred within 24 hrs of arrival to the ED Aortic Dissection and Rupture; Neurologic impairment; Cardiopulmonary Arrest; Endotracheal Intubation; Insertion or Replacement of Mechanical Circulatory Assist Device Social History Social History Household Members: Children Housing: House Do you presently have visiting nurse or other home services: No Patient Tobacco Use Status: Never used Tobacco Second Hand Smoke Exposure: No Advance Directives: Yes Advance Directives on File: Yes Advance Directives Date on File: 05/06/23 service: No Physical Exam 2 Vital Signs: Vital Signs: Last Vital Signs Temp 98.1 F 05/22/23 00:58 Pulse 79 05/22/23 00:58 Resp 18 05/22/23 00:58 BP 126/70 05/22/23 00:58 Pulse Ox 95 05/22/23 00:58 O2 Del Method Room Air 05/22/23 00:58 BMI result Body Mass Index 34.7 VITAL SIGNS: Reviewed. GENERAL: Well developed, well nourished, in no acute distress. HEAD: Normocephalic/atraumatic EYES: PERRLA, EOMI EARS: Ext canals without abnormality NOSE: Nares patent bilateral OROPHARYNX: no oral lesions noted, posterior pharynx clear NECK: Supple, no adenopathy LUNGS: Normal breath sounds. No adventitious sounds or accessory muscle use. SpO2<95> CARDIOVASCULAR: Regular rate and rhythm without noted murmurs ABDOMEN: Soft, non-tender, non-distended with bowel sounds. MUSCULOSKELETAL: No tenderness, deformities, or effusions noted on gross inspection. EXTREMITIES: No cyanosis, clubbing or edema. SKIN: Inspection of the skin reveals no rashes NEUROLOGIC: Alert and oriented x 4. Strength and sensation to light touch were grossly intact x 4. Course Course Course Narrative: This is an RME: Additional HPI, ROS, PE not included below will be deferred to primary provider. This is a 47-year-old male presenting to the ER with a complaint of left flank pain and hematuria x 3 day. Hx of kidney stones. patient was seen here on May 15, and was diagnosed with urinary tract infection. He also had a CT scan at that time revealing a UPJ stone appearing more proximal. Plan: labs UA, ultrasound, further ER evaluation needed. Medications Administered Discontinued Medications Generic Name Dose Route Start Last Admin Trade Name Gilbertoq PRN Reason Stop Dose Admin Acetaminophen 975 mg 05/22/23 01:59 05/22/23 02:16 Acetaminophen 325 Mg Tablet PO 05/22/23 02:00 975 mg ONCE ONE Administration Ketorolac Tromethamine 15 mg 05/22/23 01:59 05/22/23 02:15 Ketorolac Tromethamine 15 Mg/Ml Vial IM 05/22/23 02:00 15 mg ONCE ONE Administration Oxybutynin Chloride 5 mg 05/22/23 01:59 05/22/23 02:16 Oxybutynin Chloride Er 5 Mg Tab.Er.24 PO 05/22/23 02:00 5 mg ONCE ONE Administration Medical Decision Making Medical Decision Making [facility] Narrative: 47-year-old male with history and clinical presentation, DDX: Bladder spasm, Nephrolithiasis, has a stent in place, possible UTI though less suspected I reviewed all investigations and there is no leukocytosis or left shift, no anemia or thrombocytopenia. Likely perez studies are within normal limits. Chemistry indices are grossly within normal limits without evidence of JACKY are electrolytes/liver enzymes derangements. Urinalysis demonstrates chronically stable hematuria that is consistent with patient's known nephrolithiasis and stent placement but on review prior microbiology of urine culture there were no organisms that grew. Renal ultrasound demonstrates a 0.4 cm nonobstructing calculus in the left kidney and the presence of a left ureteral stent. My interpretation is that patient is experiencing bladder spasms and will receive oxybutynin here and then a prescription will be sent to the pharmacy. He was also instructed to combine Naprosyn with Tylenol. Differential Diagnosis Differential Diagnoses: The differential diagnosis associated with the presentation includes Please see the discussion above Admission/Observation Consideration of admission/observation: Escalation of care including admission/observation considered Please see the discussion above Lab Data [facility] Lab Attestation statement: I reviewed the patient's lab results. Please see the discussion above 05/21/23 14:46 05/21/23 14:46 Labs: Lab Results 05/21/23 05/21/23 Range/Units 14:46 20:06 WBC 7.9 (4.8-10.8) X10*3/uL RBC 4.73 (4.60-5.80) X10*6/uL Hgb 14.5 (14.0-18.0) g/dl Hct 41.6 L (42.0-52.0) % MCV 87.9 (80.0-98.0) fL MCH 30.7 (27.0-33.0) pg MCHC 34.9 (31.0-36.0) g/dl RDW 12.6 (11.0-16.0) % Plt Count 274 (160-400) X10*3/uL MPV 8.8 L (9.4-12.4) fL Immature Gran % (Auto) 0.5 H (0.0-0.4) % Neut % (Auto) 61.4 (45-73) % Lymph % (Auto) 27.9 (20-40) % [place] % (Auto) 8.2 (2-11) % Eos % (Auto) 1.6 (0-4) % Baso % (Auto) 0.4 (0-2) % Lymph # (Auto) 2.2 (1.2-4.9) X10*3/uL [place] # (Auto) 0.7 (0.1-1.2) X10*3/uL Eos # (Auto) 0.1 (0.0-0.4) X10*3/uL Baso # (Auto) 0.0 (0.0-0.2) X10*3/uL Abs Immat Gran (auto) 0.04 H (0.00-0.03) X10*3/uL Absolute Neuts (auto) 4.8 (2.0-8.3) x10*3/uL Absolute Nucleated RBC 0.000 (0.0-0.012) X10*3/uL Nucleated RBC % (auto) 0.0 (0.0-0.2) /100WBC Sodium 139 (135-145) mmol/L Potassium 4.5 (3.3-5.1) mmol/L Chloride 107 (96-108) mmol/L Carbon Dioxide 23 (22-29) mmol/L Anion Gap 14 (12-20) BUN 12 (9-16) mg/dL Creatinine 0.77 (0.5-1.4) mg/dL Estim Creat Clear Calc 135.3 Estimated GFR > 60 Random Glucose 91 (60-115) mg/dL Calcium 9.2 (8.4-10.2) mg/dL Total Bilirubin 0.4 (0.0-1.0) mg/dL Direct Bilirubin 0.1 (0.0-0.5) mg/dL AST 33 (5-37) U/L ALT 40 (0-40) U/L Alkaline Phosphatase 95 (39-117) U/L Total Protein 8.1 H (6.5-8.0) g/dL Albumin 3.8 (3.5-5.0) g/dL Lipase 43 (8-78) U/L Urine Color [place] A Urine Appearance Clear Urine pH 5.5 (5.0-9.0) Ur Specific [place] 1.015 (1.005-1.025) Urine Protein 100 (2+) H (Neg-Trace) mg/dL Urine Glucose (UA) Negative (Negative) mg/dL Urine Ketones Negative (Negative) mg/dL Urine Blood Large (3+) H (Negative) Urine Nitrite Negative (Negative) Ur Leukocyte Esterase Moderate (2+) H (Negative) Urine RBC >20 H (0-2) /HPF Urine WBC 21-50 H (0-5) /HPF Ur Squamous Epith Cells 0-2 (0-2) /HPF Urine Bacteria None Seen (None Seen) Hyaline Casts 0-2 (0-2) /LPF Radiology Impression Discussion of test interpretation with radiology: I have reviewed the radiologist's reading. Radiologist Impression: Please see the discussion above External Record Review External record reviewed: Outpatient record, Prior outpatient labs and Prior outpatient radiology Chronic Conditions Patient?s care impacted by: Hypertension Critical Care Time Critical Care Time Critical Care Time: Yes Total Critical Care Time: 30 Attestation: I personally attest to this time spent taking care of the patient. Discharge Plan Discharge Clinical Impression: Spasm of bladder, Nephrolithiasis, Renal colic, Sciatica Patient Disposition: Home, Self-Care Instructions: Renal Colic (ED) Additional Instructions: 1. Resume all home medications as prescribed. 2. I recommend combining 1000 mg of Tylenol with the Naprosyn that you have been prescribed. Continue to drink plenty of water. 3. I have given you prescription for an anti spasmodic as I suspect that some of the pain you are experiencing is due to bladder spasm. 4. Please follow-up with urology and your primary care doctor. Return to the ER for any worsening symptoms. Prescriptions: New oxybutynin chloride 5 mg tablet 5 mg PO BEDTIME PRN (Reason: bladder spasms) Qty: 5 0RF No Action cephalexin 500 mg capsule 500 mg PO Q6H 7 Days Qty: 28 0RF amlodipine 5 mg tablet 5 mg PO DAILY acetaminophen 500 mg tablet 500 mg PO Q6H PRN (Reason: mild pain) methocarbamol 750 mg tablet 750 mg PO Q6H PRN (Reason: muscle spasm) tamsulosin 0.4 mg capsule 0.4 mg PO QAM docusate sodium 100 mg capsule 100 mg PO BID diclofenac sodium 1 % gel 1 inch topical BID omega [id number]-[id number]-fish oil 300 mg (120 mg- 180mg)-1,000 mg capsule 1 cap PO QAM omeprazole 40 mg Capsule,Delayed Release(Dr/Ec) 40 mg PO DAILY sulfamethoxazole-trimethoprim [Bactrim DS] 800-160 mg tablet 1 tab PO BID 3 Days Qty: 6 0RF tamsulosin 0.4 mg capsule 0.4 mg PO BEDTIME 30 Days Qty: 30 1RF phenazopyridine [Pyridium] 100 mg tablet 100 mg PO TID PRN (Reason: Spasm) 4 Days Qty: 12 0RF naproxen 500 mg tablet 500 mg PO BID PRN (Reason: pain) 7 Days Qty: 14 0RF oxycodone 5 mg tablet 5 mg PO Q8H PRN (Reason: pain) 3 Days Qty: 8 0RF Rx Instructions: Partial Fill upon patient request. Referrals: Name,MD Toni [Primary Care Provider] -
[2023-05-21 14:53] LABS: MANUAL DIFF FLAG NO
[2023-05-21 14:54] LABS: Basophils Percent Auto 0.4 % (0-2); Eosinophils Absolute Auto 0.1 X10*3/uL (0.0-0.4); Eosinophils Percent Auto 1.6 % (0-4); Hematocrit 41.6 % (42.0-52.0); Hemoglobin 14.5 g/dl (14.0-18.0); Imm Gran Abs Auto 0.04 X10*3/uL (0.00-0.03); Imm Gran Pct Auto 0.5 % (0.0-0.4); Lymphocytes Absolute Auto 2.2 X10*3/uL (1.2-4.9); Lymphocytes Percent Auto 27.9 % (20-40); Mean Corpuscular HGB Conc 34.9 g/dl (31.0-36.0); Mean Corpuscular Hemoglobin 30.7 pg (27.0-33.0); Mean Corpuscular Volume 87.9 fL (80.0-98.0); Mean Platelet Volume 8.8 fL (9.4-12.4); Monocytes Absolute Auto 0.7 X10*3/uL (0.1-1.2); Monocytes Percent Auto 8.2 % (2-11); Neutrophils Absolute Auto 4.8 x10*3/uL (2.0-8.3); Neutrophils Percent Auto 61.4 % (45-73); Platelet Count 274 X10*3/uL (160-400); Red Blood Count 4.73 X10*6/uL (4.60-5.80); Red Cell Distribution Width 12.6 % (11.0-16.0); White Blood Count 7.9 X10*3/uL (4.8-10.8)
[2023-05-21 15:09] LABS: Alanine Aminotransferase 40 U/L (0-40); Albumin Level 3.8 g/dL (3.5-5.0); Alkaline Phosphatase 95 U/L (39-117); Anion Gap 14 (12-20); Aspartate Amino Transferase 33 U/L (5-37); Bilirubin Direct 0.1 mg/dL (0.0-0.5); Bilirubin Total 0.4 mg/dL (0.0-1.0); Blood Urea Nitrogen 12 mg/dL (9-16); Calcium 9.2 mg/dL (8.4-10.2); Carbon Dioxide 23 mmol/L (22-29); Chloride 107 mmol/L (96-108); Creatinine Clr Calc Pharmacy 135.3; Estimated Glomerular Filt Rate > 60; Glucose Random 91 mg/dL (60-115); Lipase 43 U/L (8-78); Potassium 4.5 mmol/L (3.3-5.1); Sodium 139 mmol/L (135-145); Total Protein 8.1 g/dL (6.5-8.0)
[2023-05-21 20:27] LABS: Appearance Urine Clear; Bacteria Urine None Seen (None Seen); Color Urine Orange; Glucose Urine UA Negative (Negative); Hyaline Casts Urine 0-2 /LPF (0-2); Leukocyte Esterase Urine Moderate (2+) (Negative); Nitrite Urine Negative (Negative); PH 5.5 (5.0-9.0); RBC Urine >20 /HPF (0-2); Specific Gravity - Urine 1.015 (1.005-1.025); Squamous Epithelial Cell Urine 0-2 /HPF (0-2); UACC Culture Trigger YES; UMIC TRIGGER UACC YES; Urine Blood Large (3+) (Negative); Urine Ketones Negative (Negative); Urine Protein 100 (2+) mg/dL (Neg-Trace); WBC Urine 21-50 /HPF (0-5)
[2023-05-22 00:58] VITALS: BP 126/70; PULSE 79; RESP 18; TEMP 36.7; O2SAT 95
[2023-05-22] MEDS: Ketorolac Tromethamine 15 MG/ML VIAL IM (02:15)
[2023-05-22] MEDS: Acetaminophen 325 MG TABLET 975 MG PO (02:16)
[2023-05-22] MEDS: oxyBUTYnin chloride ER 5 MG TAB.ER.24 PO (02:16)
== END 2023-05-22 02:30 | disposition home or self-care (01) ==
PROVIDERS: Physician Assistant Medical; Emergency Provider Student in an Organized Health Care Education/Training Program; PCP Internal Medicine Geriatric Medicine
DX: N32.89 Other specified disorders of bladder (principal); N20.0 Calculus of kidney; N23 Unspecified renal colic; Z96.0 Presence of urogenital implants; Z87.442 Personal history of urinary calculi; Z79.899 Other long term (current) drug therapy
CPT/HCPCS: 36415; 76775; 80048; 80076; 81001; 83690; 85025; 87086; 96372; 99284; J1885

== ENCOUNTER → 2023-06-05 07:00 | Day surgery (SDC) | payer MEDICAID, SELFPAY ==
--- NOTE | 2023-06-03 13:07 | P.CONAN_ITS ---
HPI - Anesthesia Eval Consult details Narrative: 47yo M for Left Lithotripsy ESW with stent placement PMFSH Active Problems Active Problems: All Active Problems (Updated 05/23/23 @ 00:02 by Chang Morales) Left renal stone (Acute) Past Medical History Medical History (Updated 06/03/23 @ 13:07 by Peg Nicole NP) HTN (hypertension) Family History Family history of problems with anesthesia: No Surgical History History of Problems with Anesthesia: No Social History Social History Household Members: Children Housing: House Do you presently have visiting nurse or other home services: No Patient Tobacco Use Status: Never used Tobacco Second Hand Smoke Exposure: No Advance Directives: Yes Advance Directives on File: Yes Advance Directives Date on File: 05/06/23 service: No Meds Allergies Allergy/AdvReac Type Severity Reaction Status Date / Time tramadol Allergy Chest Pain Verified 05/15/23 08:20 Home Medications Medication Instructions Recorded Confirmed Last Taken Type acetaminophen 500 mg tablet 500 mg PO Q6H PRN mild pain 05/01/23 05/01/23 Unkno wn History amlodipine 5 mg tablet 5 mg PO DAILY 05/01/23 05/01/23 Unknown History diclofenac sodium 1 % topical gel 1 inch topical BID pain 05/01/23 05/01/23 Unknown History docusate sodium 100 mg capsule 100 mg PO BID 05/01/23 05/01/23 Unknown History methocarbamol 750 mg tablet 750 mg PO Q6H PRN muscle spasm 05/01/23 05/01/23 Unknown History omega-3 300 mg-dha 120 mg-epa 180 1 cap PO QAM 05/01/23 05/01/23 Unknown History mg-fish oil 1,000 mg capsule omeprazole 40 mg capsule,delayed 40 mg PO DAILY 05/01/23 05/01/23 Unknown History release tamsulosin 0.4 mg capsule 0.4 mg PO QAM 05/01/23 05/01/23 Unknown History Exam Pertinent Lab Results Pertinent Lab Results: Laboratory Tests 05/21/23 14:46 WBC 7.9 Hgb 14.5 Hct 41.6 L Plt Count 274 Sodium 139 Potassium 4.5 Chloride 107 Carbon Dioxide 23 BUN 12 Creatinine 0.77 Assessment and Plan Assessment Anesthesia Assessment: Chart Reviewed Final Anesthetic Review Family History of Problems with Anesthesia: No History of Problems with Anesthesia: No
--- NOTE | ~2023-06-05 | XR_ITS ---
EXAMINATION: XR ABDOMEN KUB CLINICAL INDICATION: Left sided renal stone. COMPARISON: Ultrasound of May 21, [address] of May 15, 2023. TECHNIQUE: AP view of the abdomen. FINDINGS: The bowel gas pattern is normal with no evidence of ileus or obstruction. Left ureteral stent in place. There is a confluence of small calcifications overlying lower pole of the left kidney measuring approximately 1.7 x 0.9 cm in size consistent with stone fragments. In the region of the ureteropelvic junction/proximal ureter there is some hazy density adjacent to the stent likely related to multiple small calculi. Psoas margins intact. The bones are unremarkable. XR/XR KUB IMPRESSION: Multiple left renal stone fragments lower pole. Appearance of numerous small calcific densities likely representing calculi along the proximal left ureter.
[2023-06-05 07:59] VITALS: BMI 35.0
[2023-06-05 08:03] VITALS: BP 137/87; PULSE 101; RESP 16; TEMP 36.4; O2SAT 95
[2023-06-05] MEDS: Acetaminophen 1,000 MG/100 ML PIGGYBACK 400 MG IV (08:23)
[2023-06-05] MEDS: levoFLOXacin 500 MG TABLET PO (08:24)
[2023-06-05] MEDS: Lactated Ringers 1,000 ML 999 ML IV (08:24)
--- NOTE | 2023-06-05 10:11 | PC.NURSE ---
machine broken. surgery had to be canceled. md made patient aware. to be rescheduled to next week.
== END ==
PROVIDERS: PCP Internal Medicine Geriatric Medicine; Visit Provider Urology
DX: N20.0 Calculus of kidney (principal); Z53.8 Procedure and treatment not carried out for other reasons; N13.30 Unspecified hydronephrosis
CPT/HCPCS: 74018; J0131

== ENCOUNTER 2023-06-13 08:32 | Day surgery (SDC) | payer MEDICAID, SELFPAY ==
--- NOTE | 2023-06-12 10:22 | P.CONAN_ITS ---
Documented by User: Peg Nicole NP 06/12/23 10:22 HPI - Anesthesia Eval Consult details Narrative: 47yo M for Left Lithotripsy ESW PMFSH Active Problems Active Problems: All Active Problems (Updated 06/05/23 @ 08:13 by Vesna Schmitt RN) Left renal stone (Acute) Past Medical History Medical History Kidney stone GERD (gastroesophageal reflux disease) HTN (hypertension) Family History Family history of problems with anesthesia: No Surgical History Surgical History Hx of cystoscopy History of Problems with Anesthesia: No Social History Social History Household Members: Children Housing: House Do you presently have visiting nurse or other home services: No Patient Tobacco Use Status: Never used Tobacco Second Hand Smoke Exposure: No Use of substances other than those prescribed or required for medical reasons: No Are you DNR?: No Advance Directives: No Advance Directives Information Provided: Yes Advance Directives Date on File: 05/06/23 service: No Meds Allergies Allergy/AdvReac Type Severity Reaction Status Date / Time tramadol Allergy Mild Chest Pain Verified 06/13/23 09:06 Home Medications Medication Instructions Recorded Confirmed Last Taken Type acetaminophen 500 mg tablet 500 mg PO Q6H PRN mild pain 05/01/23 06/13/23 Unknown History amlodipine 5 mg tablet 5 mg PO DAILY 05/01/23 06/13/23 06/13/23 History omega-3 300 mg-dha 120 mg-epa 180 1 cap PO QAM 05/01/23 06/13/23 06/06/23 His tory mg-fish oil 1,000 mg capsule omeprazole 40 mg capsule,delayed 40 mg PO DAILY 05/01/23 06/13/23 06/13/23 History release Exam Pertinent Lab Results Pertinent Lab Results: Laboratory Tests 05/21/23 14:46 WBC 7.9 Hgb 14.5 Hct 41.6 L Plt Count 274 Sodium 139 Potassium 4.5 Chloride 107 Carbon Dioxide 23 BUN 12 Creatinine 0.77 Assessment and Plan Assessment Anesthesia Assessment: Chart Reviewed Final Anesthetic Review Family History of Problems with Anesthesia: No History of Problems with Anesthesia: No Documented by User: Mckenzie Martinez MD 06/13/23 10:41 HPI - Anesthesia Eval Consult details Narrative: 47yo M for Left Lithotripsy ESW, stent removal Left ureter PMFSH Active Problems Active Problems: All Active Problems (Updated 06/13/23 @ 09:10 by Mckenzie Martinez MD) Left renal stone (Acute) Increased BMI. Denies CASTILLO GERD- Took omeprazole this am HTN- Took meds this morning Past Medical History Medical History Kidney stone GERD (gastroesophageal reflux disease) HTN (hypertension) Family History Family history of problems with anesthesia: No Surgical History Surgical History Hx of cystoscopy History of Problems with Anesthesia: No Social History Social History Household Members: Children Housing: House Do you presently have visiting nurse or other home services: No Patient Tobacco Use Status: Never used Tobacco Second Hand Smoke Exposure: No Use of substances other than those prescribed or required for medical reasons: No Are you DNR?: No Advance Directives: No Advance Directives Information Provided: Yes Advance Directives Date on File: 05/06/23 service: No Meds Allergies Allergy/AdvReac Type Severity Reaction Status Date / Time tramadol Allergy Mild Chest Pain Verified 06/13/23 09:06 Home Medications Medication Instructions Recorded Confirmed Last Taken Type acetaminophen 500 mg tablet 500 mg PO Q6H PRN mild pain 05/01/23 06/13/23 Unknown History amlodipine 5 mg tablet 5 mg PO DAILY 05/01/23 06/13/23 06/13/23 History omega-3 300 mg-dha 120 mg-epa 180 1 cap PO QAM 05/01/23 06/13/23 06/06/23 History mg-fish oil 1,000 mg capsule omeprazole 40 mg capsule,delayed 40 mg PO DAILY 05/01/23 06/13/23 06/13/23 History release Exam Height,Weight and Vital Signs: Height 5 ft 8 in Weight 104.78 kg Vital Signs Temp Pulse Resp BP Pulse Ox O2 Del Method 06/13/23 09:12 99.5 F 91 16 140/87 H 96 Room Air Airway Mallampati Class: III TM Dist: >3cm Neck ROM: Full Loose/Missing/Broken Teeth: Yes (Missing tooth back right. Denies loose or broken but top front ridged) Heart: RRR Lungs: CTAB Assessment and Plan Assessment Anesthesia Assessment: Anesthesia Plan Discussed and Chart Reviewed Final Anesthetic Review Family History of Problems with Anesthesia: No History of Problems with Anesthesia: No NPO: Yes ASA Class: II Final Preanesthetic Review: No Changes in Pt Med Stat, Meds/Allgs Chart Reviewed, Consent Obtained/Reviewed and Anes Risks/Benef Reviewed Patient Risk: Intermediate Procedure Risk: Low Assessment/Block/Sedation in SS: Assess/Block/Sedation-SS Anesthetic Plan Anesthetic Plan: TIVA Disposition: Standard PACU
[2023-06-13 09:12] VITALS: BP 140/87; PULSE 91; RESP 16; TEMP 37.5; O2SAT 96; BMI 35.1
--- NOTE | 2023-06-13 09:16 | MHC.SHP ---
Pre-Procedural Eval Section A Date of Service: 06/13/23 The patient is an INPATIENT: No Changes since office visit: No Cold of Flu in the past 2 weeks, No New Medical Problems, No Changes in Medication and No Patient answered all questions The History & Physical has been completed within 30 days and I have reviewed it.: Yes Section B Chief Complaint: Calculus of kidney Details of Present Illness: left esw with stent removal Relevant Social History: None Present Medications: see Short Stay Collaborative assessment Medical History: No relevant PMH History of Previous Operations: Relevant previous surgery/procedure and date(s) Allergies: Allergies Allergy/AdvReac Type Severity Reaction Status Date / Time tramadol Allergy Mild Chest Pain Verified 06/13/23 09:06 Review of Systems Sugical H&P ROS: Negative: Constitution, Cardiovascular, Respiratory, Neurological, Psychiatric, Hem-Onc, Allergic/Immunologic, Gastrointestinal, Genitourinary, Musculoskeletal, Integumentary, Endocrine and Eyes/Ears/Nose/Throat Exam Surgical H&P Exam: Normal: HEENT, Normal: Heart, Normal: Lungs, Normal: Extremities, Normal: Abdomen, Normal: Skin and Normal: Neurological Plan Diagnosis/Plan: Unchanged (eswl left with cysto stent removal) I have reviewed the history and physical and performed a pertinent physical examination on my patient. No changes have occurred unless specified. Time Spent With Patient Time: Total time managing care of this patient today ____ minutes.
[2023-06-13] MEDS: levoFLOXacin 500 MG TABLET PO (09:22)
[2023-06-13] MEDS: Lactated Ringers 1,000 ML 100 ML IVCONT (09:30)
[2023-06-13] MEDS: Acetaminophen 1,000 MG/100 ML PIGGYBACK 400 MG IV (09:30)
[2023-06-13] MEDS: Lactated Ringers 1,000 ML 999 ML IV (09:31)
--- NOTE | 2023-06-13 10:47 | W.PM.OPN ---
Operative Note Operative Note Date of Service: 06/13/23 Narrative: PreOperative Diagnosis: left Renal stones with stent Post Operative Diagnosis: left Renal stones with stent Procedure: left ESWL with cysto stent removal Surgeon: Dr Cruz Benavides Anesthesia: mac/sedation Indications for procedure: The patient understands ESWL may be a staged procedure and subsequent intervention may be required based on imaging after ESWL. Quoted stone clearance rates for a solitary procedure are in the 70-80% range based primarily on stone location. They also understand there is a risk of bleeding to the kidney, infection, damage to adjacent organs, and stone migration following the procedure. - Imaging left 6mm stone with stent Procedure: After informed consent was verified the patient was brought to the operating room and placed in a supine position. Anesthesia was performed per protocol. Safety pause time-out was performed. Imaging was displayed in the room and laterality confirmed. ESWL was performed. The 1st 500 shocks were performed at 60 hertz. These were performed with increasing power. Once maximum power was reached the rate was increased to 180 hertz. A total of 2500 shocks were given. Targeted imaging with ultrasound/fluoroscopy showed stone smudging suggestive of disintegration. At completion of procedure cystoscopy performed. Stent exiting left ureteric orifice seen and grasped and removed. The patient tolerated the procedure well and was transferred to the recovery area upon completion. Post procedure imaging will be organized. There was no evidence for flank discoloration.
[2023-06-13 10:54] VITALS: BP 136/84; PULSE 81; RESP 21; TEMP 36.1; O2SAT 95
[2023-06-13 11:09] VITALS: BP 139/82; PULSE 78; RESP 19; O2SAT 95
[2023-06-13] MEDS: Phenazopyridine HCL 100 MG TABLET PO (11:17)
[2023-06-13 11:24] VITALS: BP 136/85; PULSE 74; RESP 19; TEMP 36.2; O2SAT 96
--- NOTE | 2023-06-13 12:03 | PC.NURSE ---
Pt requested [employer] info sheets in [place].
== END 2023-06-13 12:02 | disposition home or self-care (01) ==
PROVIDERS: PCP Internal Medicine Geriatric Medicine; Visit Provider Urology
PROC: (CPT 50590; principal; 2023-06-13 10:00)
DX: N20.0 Calculus of kidney (principal); Z96.0 Presence of urogenital implants; I10 Essential (primary) hypertension; K21.9 Gastro-esophageal reflux disease without esophagitis; Z79.1 Long term (current) use of non-steroidal anti-inflammatories (NSAID); Z79.899 Other long term (current) drug therapy; Z88.8 Allergy status to other drugs, medicaments and biological substances
CPT/HCPCS: 50590; 52310; C1773; J0131; J1885; J1940; J2250; J2704; J3010

== ENCOUNTER → 2023-06-13 08:32 | Outpatient (BNV) | payer MEDICAID, SELFPAY | PROVIDERS: PCP Internal Medicine Geriatric Medicine; Visit Provider Urology | DX: N20.0 Calculus of kidney (principal); Z96.0 Presence of urogenital implants | CPT/HCPCS: 50590; 52310 ==

== ENCOUNTER 2023-06-21 10:15 | Outpatient (REF) | payer MEDICAID, SELFPAY ==
--- NOTE | ~2023-06-21 | XR_ITS ---
EXAMINATION: XR CERVICAL SPINE CLINICAL INFORMATION: Neck pain x1 month. No history of trauma. COMPARISON: None available. TECHNIQUE: AP, lateral, open-mouth odontoid and bilateral oblique views of the cervical spine were obtained. FINDINGS: The cervical spine is imaged through the C7 vertebral body. Vertebral body heights and intervertebral disc spaces are maintained. Ventral bridging syndesmophytes are seen. Bilateral neural foramen are patent. Prevertebral soft tissues are within normal limits. Lateral masses are symmetric. XR/XR cervical spine 4V IMPRESSION: No acute abnormality.
== END 2023-06-21 10:16 | disposition home or self-care (01) ==
LOC: HO.HHCX 10:15
PROVIDERS: Visit Provider Internal Medicine Geriatric Medicine
DX: M54.2 Cervicalgia (principal)
CPT/HCPCS: 72050

== ENCOUNTER → 2023-06-26 13:30 | Outpatient (BNVA) | payer SELFPAY | PROVIDERS: PCP Internal Medicine Geriatric Medicine; Visit Provider Physician Assistant Medical | DX: Z02.79 Encounter for issue of other medical certificate (principal) ==

== ENCOUNTER 2023-07-23 10:07 | Outpatient (REF) | payer MEDICAID, SELFPAY ==
--- NOTE | ~2023-07-23 | US_ITS ---
EXAMINATION: US RETROPERITONEAL LIMITED (RENAL ONLY) CLINICAL INFORMATION: Calculus of kidney. COMPARISON: Renal ultrasound 05/21/2023. TECHNIQUE: Real-time imaging of the kidneys. FINDINGS: RIGHT KIDNEY: 12.6 x 5.5 x 5.7 cm (SAG x AP x TRV). The kidney is normal in size, contour, and echogenicity. Renal cortical thickness is normal. No calculi or focal parenchymal lesions. No hydronephrosis. LEFT KIDNEY: 12.9 x 5.9 x 4.1 cm (SAG x AP x TRV). The kidney is normal in size, contour, and echogenicity. Renal cortical thickness is normal. No hydronephrosis. Likely benign renal cyst measuring 1.4 cm. No follow up imaging is recommended. 5 mm nonobstructing lower pole renal stone, previously 4 mm. US/US renal BI IMPRESSION: A 5 mm nonobstructing left lower pole renal stone, previously 4 mm.
== END 2023-07-23 10:08 | disposition home or self-care (01) ==
LOC: HO.US 10:07
PROVIDERS: PCP Internal Medicine Geriatric Medicine; Visit Provider Urology
DX: N20.0 Calculus of kidney (principal)
CPT/HCPCS: 76775

== ENCOUNTER 2023-08-07 16:09 | Outpatient (AMB) | payer MEDICAID, SELFPAY ==
--- NOTE | 2023-08-07 16:10 | A.OFFVIS_ITS ---
Intake Intake Visit Reasons: S/P ESWL/Ultrasound(SET) Intake Note: Patient presents today for a follow-up on S/P ESWL/Ultrasound Meds- None Allergies to Antibiotic- No Known Allergies Blood Thinner- None Bulk Fluids Handler Required: Yes Allergies tramadol Allergy (Mild, Verified 08/07/23 16:12) Chest Pain HPI HPI Comments History of Present Illness Details Ifeanyi is a pleasant male. He is a patient of Dr. Watts. He seen for the following urologic conditions - nephrolithiasis Telemedicine Evaluation 15 min Consultation [employer] Video attempted Ultrasound with punctate stone Six-month follow-up Encourage fluids and vitamin B6 Nephrolithiasis Prior presentation to emergency room Intervention - 05/11 stent placement with ESWL Imaging - CT 8mm right proximal stone PFSH Medical History Kidney stone GERD (gastroesophageal reflux disease) HTN (hypertension) Surgical History Hx of cystoscopy Social History Household Members: Children Housing: House Do you presently have visiting nurse or other home services: No Patient Tobacco Use Status: Never used Tobacco Second Hand Smoke Exposure: No Advance Directives Date on File: 05/06/23 service: No Review of Systems Const All systems reviewed & are unremarkable except as noted in HPI and below Reports no additional complaints Resp Reports no additional complaints GI Reports no additional complaints Reports as per HPI Musc Reports no additional complaints Physical Exam Telemedicine evaluation Appropriate responses Regular breathing rate and rhythm HEENT Head: Yes normal to inspection Ears: hearing grossly normal bilaterally Eyes General: appearance normal, both eyes and all related structures Neck Neck: Yes normal visual inspection Chest Chest palpation & inspection: normal inspection of the chest Resp Effort & Inspection: normal respiratory effort and able to speak in complete sentences Assessment & Plan Assessment & Plan (1) Left renal stone: Code(s): N20.0 - Calculus of kidney Plan Six-month follow-up renal ultrasound Orders: Orders US renal BI 07/23/23 N20.0 - Calculus of kidney US renal BI 6 Months N20.0 - Calculus of kidney Medications: New pyridoxine (vitamin B6) 50 mg PO DAILY 90 days 90 tabs 1RF N20.0 - Calculus of kidney Patient Instructions: Imaging studies, laboratory and physical exam results were discussed and reviewed in detail. No major barriers to patient understanding were identified. An opportunity to ask questions regarding the treatment plan was provided. All questions were answered. The patient expressed understanding and agreement with the above treatment plan. The patient is aware they should contact our office by phone for worsening of their current condition or the appearance of new urologic symptoms. Compliance is encouraged with any medications and followup testing that is ordered. It is a privilege to participate in the urologic care of your patient. If you have any questions or concerns regarding treatment for the above conditions, or other urologic issues, please do not hesitate to contact me. The office telephone contact is [phone]. This note is constructed using voice recognition software. While every effort has been made to ensure accuracy mounter clarinets errors may have been included. Yours sincerely, Dr Cruz Benavides MD, [facility] - Urology Providers of Expert, Compassionate Care for the Genitourinary System Telehealth Telehealth Location of provider rendering services: practice address Location of patient: address on file Patient Identification confirmed using: Name, : Yes Telehealth method: video Patient verbally consented to treatment: Yes Patient verbally consented to billing insurance company: Yes Patient informed of any privacy concerns related to visit: Yes Coding Level of Care Code Tele Est Pt Level 3 (95686) Diagnoses Left renal stone N20.0
== END 2023-08-07 16:52 | disposition home or self-care (01) ==
LOC: HO.HUSH 16:09
PROVIDERS: PCP Internal Medicine Geriatric Medicine; Visit Provider Urology
DX: N20.0 Calculus of kidney (principal)
CPT/HCPCS: 99024

== ENCOUNTER → 2023-08-07 16:09 | Outpatient (BNVA) | payer MEDICAID, SELFPAY | PROVIDERS: PCP Internal Medicine Geriatric Medicine; Visit Provider Urology ==

== ENCOUNTER 2023-08-23 12:42 | Outpatient (REF) | payer MEDICAID, SELFPAY ==
[2023-08-23 16:29] LABS: MANUAL DIFF FLAG NO
[2023-08-23 16:36] LABS: Basophils Percent Auto 0.2 % (0-2); Eosinophils Absolute Auto 0.1 X10*3/uL (0.0-0.4); Eosinophils Percent Auto 1.7 % (0-4); Hematocrit 46.8 % (42.0-52.0); Hemoglobin 15.7 g/dl (14.0-18.0); Imm Gran Abs Auto 0.02 X10*3/uL (0.00-0.03); Imm Gran Pct Auto 0.2 % (0.0-0.4); Lymphocytes Absolute Auto 2.6 X10*3/uL (1.2-4.9); Lymphocytes Percent Auto 31.8 % (20-40); Mean Corpuscular HGB Conc 33.5 g/dl (31.0-36.0); Mean Corpuscular Hemoglobin 29.7 pg (27.0-33.0); Mean Corpuscular Volume 88.5 fL (80.0-98.0); Mean Platelet Volume 9.6 fL (9.4-12.4); Monocytes Absolute Auto 0.6 X10*3/uL (0.1-1.2); Monocytes Percent Auto 7.4 % (2-11); Neutrophils Absolute Auto 4.8 x10*3/uL (2.0-8.3); Neutrophils Percent Auto 58.7 % (45-73); Platelet Count 288 X10*3/uL (160-400); Red Blood Count 5.29 X10*6/uL (4.60-5.80); Red Cell Distribution Width 12.9 % (11.0-16.0); White Blood Count 8.1 X10*3/uL (4.8-10.8)
[2023-08-23 16:57] LABS: Alanine Aminotransferase 35 U/L (0-40); Albumin Level 3.9 g/dL (3.5-5.0); Alkaline Phosphatase 88 U/L (39-117); Anion Gap 10 (12-20); Aspartate Amino Transferase 39 U/L (5-37); Bilirubin Total 0.3 mg/dL (0.0-1.0); Blood Urea Nitrogen 18 mg/dL (9-16); Calcium 9.1 mg/dL (8.4-10.2); Carbon Dioxide 22 mmol/L (22-29); Chloride 111 mmol/L (96-108); Cholesterol 134 mg/dL (<200); Estimated Glomerular Filt Rate > 60; Glucose Random 83 mg/dL (60-115); HDL Cholesterol 34 mg/dL (>40); LDL Cholesterol Calculated 69 mg/dL (<100); Potassium 3.8 mmol/L (3.3-5.1); Sodium 139 mmol/L (135-145); Total Protein 8.7 g/dL (6.5-8.0); Triglycerides 155 mg/dL (<150)
[2023-08-23 17:03] LABS: Rheumatoid Factor < 13.0 IU/mL (<15.0)
[2023-08-23 17:13] LABS: TSH reflex Free T4 1.18 uIU/mL (0.32-4.0)
== END 2023-08-23 12:43 | disposition home or self-care (01) ==
LOC: HO.HHCL 12:42
PROVIDERS: Visit Provider Internal Medicine Geriatric Medicine
DX: R53.83 Other fatigue (principal); M25.50 Pain in unspecified joint; E78.1 Pure hyperglyceridemia; Z90.09 Acquired absence of other part of head and neck
CPT/HCPCS: 36415; 80053; 80061; 84443; 85025; 86431

== ENCOUNTER → 2023-09-30 09:38 | Outpatient (REF) | payer MEDICAID, SELFPAY | LOC: HO.SL 09:38 | PROVIDERS: PCP Internal Medicine Geriatric Medicine; Visit Provider Internal Medicine Geriatric Medicine | DX: G47.10 Hypersomnia, unspecified (principal); R06.83 Snoring; R53.83 Other fatigue | CPT/HCPCS: 95806 ==

== ENCOUNTER → 2023-09-30 19:00 | Outpatient (BNV) | payer MEDICAID, SELFPAY | PROVIDERS: PCP Internal Medicine Geriatric Medicine; Visit Provider Internal Medicine | DX: G47.33 Obstructive sleep apnea (adult) (pediatric) (principal) | CPT/HCPCS: 95806 ==

== ENCOUNTER 2024-01-08 17:20 | Outpatient (REF) | payer MEDICAID, SELFPAY | END 2024-01-08 17:21 | disposition home or self-care (01) | LOC: HO.HHCLNP 17:20 | PROVIDERS: Visit Provider Nurse Practitioner Family | DX: K21.9 Gastro-esophageal reflux disease without esophagitis (principal) | CPT/HCPCS: 87338 ==

== ENCOUNTER 2024-02-07 07:52 | Outpatient (REF) | payer MEDICAID, SELFPAY ==
--- NOTE | ~2024-02-07 | US_ITS ---
EXAMINATION: US RETROPERITONEAL LIMITED (RENAL ONLY) CLINICAL INFORMATION: Renal calculi. COMPARISON: 07/23/2023 TECHNIQUE: Real-time imaging of the kidneys. FINDINGS: RIGHT KIDNEY: 12.5 x 6.1 x 5.6 cm (SAG x AP x TRV). The kidney is normal in size, contour, and echogenicity. Renal cortical thickness is normal. No calculi or focal parenchymal lesions. No hydronephrosis. LEFT KIDNEY: 12.4 x 6.2 x 4.4 cm (SAG x AP x TRV). The kidney is normal in size, contour, and echogenicity. Renal cortical thickness is normal. Again seen is a lower pole nonobstructing calculus seen measuring 4 mm, previously measured at 5 mm. No hydronephrosis. A benign 1.6 cm Bosniak Bosniak class II cyst is noted with posterior mural calcification which requires no additional imaging or follow up. A similar finding can be seen on the 05/15/2023 CT scan. No solid renal masses are seen. US/US renal BI IMPRESSION: Nonobstructing 4 mm left lower pole calculus. Electronically signed by: Bob Leone MD 02/12/2024 12:44 AM EDT
== END 2024-02-07 07:53 | disposition home or self-care (01) ==
LOC: HO.US 07:52
PROVIDERS: PCP Internal Medicine Geriatric Medicine; Visit Provider Urology
DX: N20.0 Calculus of kidney (principal)
CPT/HCPCS: 76775

== ENCOUNTER 2024-03-18 11:09 | Outpatient (AMB) | payer MEDICAID, SELFPAY ==
--- NOTE | 2024-03-18 11:18 | A.OFFVIS_ITS ---
Intake Visit Reasons: 6m/US(set) Intake Note: Patient is present for 6M/US Urology Medication:NAPROXEN,OXYCODONE,PYRIDIUM,TAMSULOSIN,VITAMIN B6 Antibiotic Allergy:NONE Blood Thinner:NONE Transfer Worker Required: No Allergies tramadol Allergy (Mild, Verified 03/18/24 11:20) Chest Pain HPI Comments Details: Ifeanyi is a pleasant male. He is a patient of Dr. Watts. He seen for the following urologic conditions - nephrolithiasis Yearly follow-up 4 mm left lower pole stone Yearly follow-up Nephrolithiasis Prior presentation to emergency room Intervention - 05/11 stent placement with ESWL Imaging - CT 8mm right proximal stone - 02/10 renal ultrasound 4 mm left lower pole stone PFSH Medical History Kidney stone GERD (gastroesophageal reflux disease) HTN (hypertension) Surgical History Hx of cystoscopy Social History Household Members: Children Housing: House Do you presently have visiting nurse or other home services: No Patient Tobacco Use Status: Never used Tobacco Second Hand Smoke Exposure: No Advance Directives Date on File: 05/06/23 service: No Review of Systems Const Denies chills and Denies fever(s) Card Reports no additional complaints and Denies syncope Resp Denies cough GI Denies abdominal pain and Denies heartburn Reports as per HPI and Denies change in libido Neuro Denies syncope Psych Denies change in libido Endo Denies change in libido Physical Exam Const General: cooperative, healthy appearing, comfortable and no acute distress Orientation/consciousness: patient oriented x3 HEENT Face and sinus: Yes normal facial exam Mouth: moist mucous membranes Neck Neck: Yes normal visual inspection, Yes full ROM and Yes trachea midline Chest Chest palpation & inspection: normal inspection of the chest Resp Effort & Inspection: normal respiratory effort, able to speak in complete se ntences and no respiratory distress GI Inspection: Yes normal to inspection Back/Spine/Pelvis Cervical Spine: normal cervical lordosis Thoracic/Lumbar Spine: thoracic and lumbar spine normal to inspection Skin General skin exam: no rashes or lesions noted Neuro General: patient oriented x3, gait normal, tone normal and moves all extremities Extrem General: Yes normal to inspection and Yes capillary refill normal Assessment & Plan Assessment & Plan (1) Left renal stone: Code(s): N20.0 - Calculus of kidney Category: Medical Plan Twelve month follow-up renal ultrasound with PSA Orders: Orders US renal BI 12 Months N20.0 - Calculus of kidney Prostate Specific Antigen 364 Days N20.0 - Calculus of kidney Patient Instructions: Imaging studies, laboratory and physical exam results were discussed and reviewed in detail. No major barriers to patient understanding were identified. An opportunity to ask questions regarding the treatment plan was provided. All questions were answered. The patient expressed understanding and agreement with the above treatment plan. The patient is aware they should contact our office by phone for worsening of their current condition or the appearance of new urologic symptoms. Compliance is encouraged with any medications and followup testing that is ordered. It is a privilege to participate in the urologic care of your patient. If you have any questions or concerns regarding treatment for the above conditions, or other urologic issues, please do not hesitate to contact me. The office telephone contact is [phone]. This note is constructed using voice recognition software. While every effort has been made to ensure accuracy overlay operator errors may have been included. Yours sincerely, Dr Cruz Benavides MD, [facility] - Urology Providers of Expert, Compassionate Care for the Genitourinary System Coding Level of Care Code Est Pt Level 4 (96761) Diagnoses Left renal stone N20.0
== END 2024-03-18 12:02 | disposition home or self-care (01) ==
LOC: HO.HUSH 11:09
PROVIDERS: PCP Internal Medicine Geriatric Medicine; Visit Provider Urology
DX: N20.0 Calculus of kidney (principal)
CPT/HCPCS: 99214

== ENCOUNTER → 2024-03-18 11:09 | Outpatient (BNVA) | payer MEDICAID, SELFPAY | PROVIDERS: PCP Internal Medicine Geriatric Medicine; Visit Provider Urology | DX: N20.0 Calculus of kidney (principal); Z79.899 Other long term (current) drug therapy | CPT/HCPCS: 99212 ==

== ENCOUNTER 2025-01-09 08:50 | Outpatient (REF) | payer MEDICAID, SELFPAY ==
--- OUTSIDE RECORDS SUMMARY | 2025-01-09 08:52 | XMS_ITS | Clinical Summary ---
Author Organization [employer] Address [address] [place] [address] 7[address] [place] [address] Care Team Providers Care Carton Filler Name Role Phone Name, Toni TREADWELL Primary Care Provider [phone] Allergies Active Allergy Reactions Criticality Noted Date Comments Tramadol Low 07/02/2022 Other reaction(s): SOB Other reaction(s): Chest Pain Medications omega-3 (Fish Oil) 1000 MG capsuleIndications:Pu re hyperglyceridemia TAKE 1 CAPSULE BY MOUTH EVERY MORNING 90 capsule 3 4 Active pyridoxine (Vitamin B-6) 50 MG tablet Take 50 mg by mouth in the morning. 4 Active pantoprazole (Protonix) 40 MG EC tablet Take 1 tablet (40 mg) by mouth before breakfast. Do not crush, chew, or split. 30 tablet 2 4 Active celecoxib (CeleBREX) 200 MG capsule TAKE 1 CAPSULE BY MOUTH TWICE A DAY 60 capsule 4 Active amLODIPine (Norvasc) 5 MG tablet Take 1 tablet (5 mg) by mouth Once per day. 30 tablet 11 5 026 Active Active Problems Problem Noted Date Diagnosed Date Gastroesophageal reflux disease 12/25/2023 Assessment & Plan (12/25/2023 6:59 PM EDT): Concerning for h pylori, pt has been on omeprazole, will trial pantoprazole H pylori stool test ordered, though limitations of negative results reviewed with pt, if symptoms persist, referral to GI Follow up in scheduled Pt verbalized understanding of discontinue of ibuprofen Primary hypertension 12/25/2023 Assessment & Plan (12/25/2023 6:58 PM EDT): Pt reports stopping the amlodipine as felt dizzy, will stop ibuprofen and reduce caffeine Resume amlodipine 2.5 mg (1/2 tablet) Has home bp cuff will measure CASTILLO (obstructive sleep apnea) 10/15/2023 Nephrolithiasis 03/20/2023 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 1 Assessment & Plan (05/14/2023 10:04 AM EST): Patient with c/o low back pain with radiation to Left lower extremity x 3 months Declines PT, has been using NSAIDS, Muscle relaxant with no good response He had an MRI of lumbar spine that showed multilevel degenerative changes w/o high grade canal stenosis.The plan was for Patient to f/u with pain management Plan: Refer to [facility] Assessment & Plan (03/12/2023 12:27 PM EDT): Most likely an incidental finding Use Tylenol PRN+ Diclofenac gel Papillary thyroid carcinoma 07/02/2022 Overview (08/23/2023): right thyroid lobectomy at [facility] [place] 10/2021, he was found to have small 1.3cm encapsulated PTC with negative margins and negative lymph nodes. Surgery is considered curative and the plan is that he will follow with [facility] to check the TSH (low range TSH was recommended to his endocrine surgeon) History of lobectomy of thyroid 07/02/2022 Overview (08/23/2023): right thyroid lobectomy at [facility] [place] 10/2021, he was found to have small 1.3cm encapsulated PTC with negative margins and negative lymph nodes. Surgery is considered curative and the plan is that he will follow with [facility] to check the TSH (low range TSH was recommended to his endocrine surgeon) Hypertriglyceridemia 07/02/2022 Class 2 obesity 07/02/2022 Chronic right shoulder pain 07/02/2022 Resolved Problems Problem Noted Date Diagnosed Date Resolved Date Renal colic 06/20/2023 06/20/2023 08/23/2023 Sciatica 06/20/2023 06/20/2023 08/23/2023 Spasm of bladder 06/20/2023 06/20/2023 08/23/2023 UTI (urinary tract infection) 05/17/2023 08/23/2023 Constipation 05/17/2023 08/23/2023 Hospital discharge follow-up 05/14/2023 08/23/2023 Assessment & Plan (05/14/2023 10:05 AM EST): Patient of Dr. Watts here for a HDF Initial ER visit 04/23/2023 Patient presented with c/o left flank and leg pain. Recent CT scan showed kidney stone. Given physical exam and concerns for sciatica. He was treated with dexamethasone and methocarbamol and subsequently discharged home. He presented to the Hospital again on 04/25 and was admitted until 04/28 with c/o flank pain. CT Abd and pelvis showed 16 mm left UPJ stone with hydronephrosis. He underwent ureteral stent placement. his course was complicated by worsening left lower extremity pain. He was started on pain regimen of tizanidine, Toradol, Dilaudid, acetaminophen and prednisone plus gabapentin. He had an MRI of lumbar spine that showed multilevel degenerative changes w/o high grade canal stenosis.The plan was for Patient to f/u with urology and PCP for referral to pain management He then presented to [facility] from 05/01 until 05/04 for left flank pain following stent placement at outside facility.He underwent ureteroscopy with laser lithotripsy and stent replacement with resolution of stent pain. The plan to f/u with [facility]. Pt scheduled for stent removal 06/05/2022 Left lower quadrant abdominal pain 03/12/2023 08/23/2023 Assessment & Plan (03/12/2023 12:35 PM EDT): Could be related to constipation but I will R/O diverticulitis vs kidney stone Recommended increased water intake, use Colace BID + Tylenol PRN. Pt had severe side effects from tramadol from the past (Bradycardia + respiratory distress) Order CT scan of abd RADHA I will FU in 2-3 days to reassess Sx and FU on labs Pt will call back if he develops fever, severe nausea, vomiting or diarrhea Mass of thyroid gland 08/25/20212023 Encounters Date Type Department Care Team Description 12/25/2024 9:30 AM EDT Clinical Support [facility] [address] [place] [address] Celestina Garcia RN Primary hypertension (Primary Dx); History of lobectomy of thyroid; Screening for cholesterol level 12/25/2024 Telephone [facility] [address] [place] [address] Toni Watts MD 12/25/2024 Travel 11/28/2024 9:20 AM EDT Office Visit [facility] [address] [place] [address] Jace Frederick MD COVID (Primary Dx); Fever, unspecified fever cause; Primary hypertension 11/28/2024 Orders Only [facility] [address] [place], [place] [id number] Jace Frederick MD 11/28/2024 Travel 11/16/2024 Telephone [facility] [address] [place] [address] Arlene Osman [place] Appointment Request 11/16/2024 Telephone [facility] [address] [place] [address] Toni Watts MD Appointment Request from Last 3 Months Immunizations Immunization Administration Dates Next Due Pfizer Covid-19 Vaccine 12+ 10/09/2020, 1 Td (adult), 5 Lf tetanus tox oid, preservative free, adsorbed 12/13/2011 Tdap 08/08/2021,12/13/2014 Social History Tobacco Use Types Packs/Day Years Used Date Smoking Tobacco: Never Passive Smoke Exposure: Never Smokeless Tobacco: Never Tobacco Cessation:Counseling Given: Not Answered Alcohol Use Standard Drinks/Week Comments Never 0 (1 standard drink = 0.6 oz pur e alcohol) PHQ-2 Answer Date Recorded Patient Health Questionnaire-2 Score 0 07/02/2022 Housing Stability Answer Date Recorded What is your housing situation today? I have marla santizo 03/11/[address] you li ve. Do you have problems with any of the following? None of the above 03/11/2023 Food Insecurity Answer Date Recorded Within the past 12 months, y ou worried that your food would run out before you got money to buy more: Never True 03/11/2023 Within the past 12 months,th e food you bought just didn't last and you didn't have enough money to get more: Never True Transportation Answer Date Recorded In the past 12 months, has l ack of transportation kept you from medical appts, meetings, work or from getting things needed for daily living? No 03/11/2023 Utilities Answer Date Recorded In the past 12 months, has t he electric, gas, oil or water company threatened to shut off services in your home? No 03/11/2023 Depression Answer Date Recorded Patient Health Questionnaire-2 Score 0 03/12/2023 Sex and Gender Information Value Date Recorded Sex Assigned at Male 03/19/2022 10:39 AM EDT Legal Sex Male 10:39 AM EDT Gender Identity Male 03/19/2022 10:39 AM EDT Sexual Orientation Choose not to disclose 2021 10:39 AM EDT Last Filed Vital Signs Vital Sign Reading Time Taken Comments Blood Pressure 146/90 12/25/2024 10:04 AM EDT Pulse 71 12/25/2024 10:03 AM EDT Temperature 36.7 C (98 F) 12/25/2024 10:03 AM EDT Respiratory Rate 18 12/25/2024 10:03 AM EDT Oxygen Saturation 95% 12/25/2024 10:03 AM EDT Inhaled Oxygen Concentration - - Weight 110 kg (242 lb 6.4 oz) 12/25/2024 10:03 A M EDT Height 172.7 cm (5' 8 ) 11/28/2024 9:24 AM EDT Body Mass Index 36.86 11/28/2024 9:24 AM EDT Plan of Treatment Upcoming Encounters Date Type Department Care Team (Late st Contact Info) Description 02/16/2025 10:15 AM EDT Office Visit [facility] [address] [place] [id number] Name, MD Toni [address] [place] [address] Health Maintenance Due Date Last Done Comments CT Colonography 1973 Colonoscopy 1973 Colorectal Cancer Screening 1973 FIT DNA/Cologuard 1973 FIT 1973 FOBT 1973 HIV Screening 1973 Sigmoidoscopy 1973 Disability Screening 1973 Alcohol/Substance Use Screening 1985 Family Planning (PISQ) 1988 Hepatitis C Screening 09/05/1991 Hepatitis B Vaccines (1 of 3 - 19+ 3-dose series) 1992 Dental Oral Exam 05/30/2023 11/26/2022 Pneumococcal Vaccine: 50+ Years (1 of 1 - PCV) 09/05/2023 Zoster Vaccines (1 of 2) 09/05/2023 Dental Prophylaxis 01/17/2024 07/18/2023, 11/26/2022 COVID-19 Vaccine (4 - 2023-2 5 season) 2024 10/30/2020, 10/09/2020, 07/30/2020 Depression Screening 03/12/2024 03/12/2023, 03/12/2023 SDOH Screening 03/12/2024 03/12/2023 Dental X-Ray: Bitewings 09/26/2024 09/26/19 24, 11/26/2022 Tobacco Screening 12/24/2024 12/25/2023 Influenza Vaccine (#1) 2025 Dental X-Ray: Full Mouth 11/27/2025 11/26/2022 Lipid Panel 08/22/2028 08/23/2023, 07/02/2022, 06/29/2021 DTaP/Tdap/Td Vaccines (3 - T d or Tdap) 08/09/2031 08/08/2021, 12/13/2014, 12/13/2011 RSV Patients and Patients Aged 60 years or older (1 - 1-dose 75+ series) 2048 HIB Vaccines Aged Out No longer eligi ble based on patient's age to complete this topic HPV Vaccines Aged Out No longer eligi ble based on patient's age to complete this topic Hepatitis A Vaccines Aged Out No long er eligible based on patient's age to complete this topic IPV Vaccines Aged Out No longer eligi ble based on patient's age to complete this topic Meningococcal B Vaccine Aged Out No l onger eligible based on patient's age to complete this topic Meningococcal Vaccine Aged Out No mariaa tina eligible based on patient's age to complete this topic RSV under 20 months Aged Out No longe r eligible based on patient's age to complete this topic Rotavirus Vaccines Aged Out No longer eligible based on patient's age to complete this topic Procedures Procedure Name Priority Date/Time Associated Diagnosis Comments POCT INFLUENZA A (ID NOW RAPID MOLECULAR) Routine 11/28/2024 9:39 AM EDT Fever, unspecified fever cause POCT INFLUENZA B (ID NOW RAPID MOLECULAR) Routine 11/28/2024 9:38 AM EDT Fever, unspecified fever cause POC HERBERT ID NOW STREP A Routine 11/28/2024 9:37 AM EDT Fever, unspecified fever cause POCT RAPID COVID ANTIGEN Routine 11/28/2024 9:35 AM EDT Fever, unspecified fever cause BITEWING - SINGLE RADIOGRAPHIC IMAGE Routine 09/26/2023 8:00 AM EDT LIPID PANEL, STANDARD Routine 08/23/2023 12:44 PM EDT Hypertriglyceridemi a PROPHYLAXIS - ADULT Routine 07/18/2023 3 :00 PM EST INTRAORAL - COMPLETE SERIES OF RADIOGRAPHIC IMAGES Routine 11/26/2022 9:00 AM EDT Encounter for dental examination COMPREHENSIVE ORAL EVALUATION - NEW OR ESTABLISHED PATIENT Routine 11/26/2022 9:00 AM EDT from Last 3 Months or Most Recently Relevant to Health Maintenance Results * POCT Rapid Influenza A HERBERT ID NOW (11/28/2024 9:39 AM EDT) Influenza A Negative Negative, Indeterminate [facility] QC Media Lot # [id number] [facility] Lot# Expiration Date 1082 [facility] Swab 11/28/2024 9:39 AM EDT Jace Baca MD POINT OF CARE TEST ENTER/EDIT ORDERABLES Final Result Performing Organization Address City/[facility]/ZIP Co de Phone Number [facility] [address] [place] [phone] * POCT Rapid Influenza B HERBERT ID NOW (11/28/2024 9:38 AM EDT) Influenza B Negative Negative, Indeterminate [facility] QC Media Lot # [id number] [facility] Lot# Expiration Date 826 [facility] Swab 11/28/2024 9:38 AM EDT Jace Baca MD POINT OF CARE TEST ENTER/EDIT ORDERABLES Final Result Performing Organization Address [facility] Co de Phone Number [facility] [address] [place] [phone] * POCT Rapid Strep A HERBERT ID NOW (11/28/2024 9:37 AM EDT) Rapid Strep A Screen Negative Negative, None Detected QC Media Lot # [id number] Lot# Expiration Date 12,526 Swab 11/28/2024 9:37 AM EDT Jace Baca MD POINT OF C ARE TEST ENTER/EDIT ORDERABLES Edited Result - Final * (ABNORMAL) POCT Rapid Covid-19 BinaxNOW (11/28/2024 9:35 AM EDT) Rapid COVID Ag Positive QC Media Lot # [id number] Lot# Expiration Date [id number] Swab 11/28/2024 9:35 AM EDT Jace Baca MD POINT OF CARE TEST ENTER/EDIT ORDERABLES Final Result * (ABNORMAL) Lipid Panel, Standard (08/23/2023 12:44 PM EDT) Triglycerides 155(H) <150 mg/dL [facility] Comment:Desirable Triglyceri de: less than 150 mg/dLBorderline High Triglyceride 150-199 mg/dLHigh Triglyceride: 200-499 mg/dLVery High Triglyceride: greater than or equal to 5OO mg/dL Cholesterol 134 <200 mg/dL [facility] Comment:Desirable Cholestero l: less than 200 mg/dLBorderline High Cholesterol: 200-239 mg/dLHigh Cholesterol: greater than 239 mg/dL LDL Cholesterol Calculated 69 <100 mg/dL [facility] Comment:Desirable LDL: less than 100 mg/dLNear Optimal/Above Optimal LDL: 110- 129 mg/dLBorderline High LDL: 130-159 mg/dLHigh LDL: 160-189 mg/dLVery High LDL: greater than or equal to 190 mg/dL HDL Cholesterol 34(L) >40 mg/dL [facility] Comment:Desirable HDL: great er than 40 mg/dL Note: This HDL assay may give artificially low results in patients with liver disease. Blood Venous blood specimen / Unknown 08/23/2023 12:44 PM EDT 08/23/2023 4:06 PM EDT us Toni Watts MD LAB BLOOD ORDERABLES Final Resul t [facility] [address] [place] [address] [phone] from Last 3 Months or Most Recently Relevant to Health Maintenance Insurance [address] [place], [place] [address]O [facility] STAND ADULT Care Teams Carton Filler Relationship Specialty Start Date End Date Name, MD Toni [address] [place] [phone] PCP - General Family Medicine 07/11/21
[2025-01-09 11:23] LABS: Alanine Aminotransferase 35 U/L (0-40); Albumin Level 4.1 g/dL (3.5-5.0); Alkaline Phosphatase 101 U/L (39-117); Anion Gap 14 (12-20); Aspartate Amino Transferase 46 U/L (5-37); Blood Urea Nitrogen 9 mg/dL (9-16); Calcium 9.1 mg/dL (8.4-10.2); Carbon Dioxide 26 mmol/L (22-29); Chloride 106 mmol/L (96-108); Cholesterol 175 mg/dL (<200); Estimated Glomerular Filt Rate > 60; HDL Cholesterol 29 mg/dL (>40); Potassium 4.5 mmol/L (3.3-5.1); Sodium 141 mmol/L (135-145); Total Protein 8.6 g/dL (6.5-8.0); Triglycerides 456 mg/dL (<150)
== END 2025-01-09 08:51 | disposition home or self-care (01) ==
LOC: HO.LAB 08:50
PROVIDERS: PCP Internal Medicine Geriatric Medicine; Visit Provider Internal Medicine Geriatric Medicine
DX: Z13.220 Encounter for screening for lipoid disorders (principal); Z90.09 Acquired absence of other part of head and neck
CPT/HCPCS: 36415; 80053; 80061; 84443

== ENCOUNTER 2025-03-16 18:38 | Outpatient (REF) | payer OTHER, SELFPAY ==
--- OUTSIDE RECORDS SUMMARY | 2025-03-16 14:00 | XMS_ITS | Encounter Summary ---
Author Organization [employer] Address [address] [place] [address] [address] [place] [address] Care Team Providers Care Foundation Drill Operator Name Role Phone Name, Toni TREADWELL Primary Care Provider [phone] Reason for Visit * Reason Comments HDF Encounter Details Date Type Department Care Team ([facility] st Contact Info) Description 03/16/2025 2:00 PM EDT Office Visit [facility] [address] [place] [address] Name, MD Toni [address] [place] [address] Renal stones (Primary Dx); Dysuria; Bacteremia due to Escherichia coli Social History Tobacco Use Types Packs/Day Years Used Date Smoking Tobacco: Never Passive Smoke Exposure: Never Smokeless Tobacco: Never Tobacco Cessation:Counseling Given: Not Answered Alcohol Use Standard Drinks/Week Comments Never 0 (1 standard drink = 0.6 oz pur e alcohol) PHQ-2 Answer Date Recorded Patient Health Questionnaire-2 Score 0 07/02/2022 Housing Stability Answer Date Recorded What is your housing situation today? I have marlaglen santizo 02/08/[address] you li ve. Do you have problems with any of the following? None of the above 02/08/2025 Food Insecurity Answer Date Recorded Within the past 12 months, y ou worried that your food would run out before you got money to buy more: Never True 02/08/2025 Within the past 12 months,th e food you bought just didn't last and you didn't have enough money to get more: Never True Transportation Answer Date Recorded In the past 12 months, has l ack of transportation kept you from medical appts, meetings, work or from getting things needed for daily living? No 02/08/2025 Utilities Answer Date Recorded In the past 12 months, has t he electric, gas, oil or water company threatened to shut off services in your home? No 02/08/2025 Depression Answer Date Recorded Patient Health Questionnaire-2 Score 0 03/12/2023 Internet Access Answer Date Recorded Internet Access Q1 Yes 02/08/2025 Internet Access Q2 Not on file 02/08/2025 Sex and Gender Information Value Date Recorded Sex Assigned at Male 03/19/2022 10:39 AM EDT Legal Sex Male 10:39 AM EDT Gender Identity Male 03/19/2022 10:39 AM EDT Sexual Orientation Choose not to disclose 2021 10:39 AM EDT documented as of this encounter Last Filed Vital Signs Vital Sign Reading Time Taken Comments Blood Pressure 142/86 03/16/2025 2:03 PM EDT Pulse 81 03/16/2025 2:03 PM EDT Temperature 36.1 C (97 F) 03/16/2025 2:03 PM EDT Respiratory Rate 14 03/16/2025 2:03 PM EDT Oxygen Saturation 97% 03/16/2025 2:03 PM EDT Inhaled Oxygen Concentration - - Weight 105 kg (232 lb 3.2 oz) 03/16/2025 2:03 PM EDT Height 172.7 cm (5' 8 ) 03/16/2025 2:03 PM EDT Body Mass Index 35.31 03/16/2025 2:03 PM EDT documented in this encounter Progress Notes * Toni Watts MD - 03/16/2025 2:00 PM EDT Subjective Patient ID: Ifeanyi Jade is a 49 y.o. male who presents for HDF. Patient comes for a posthospitalization visit. Since his last appointment with me he was admitted to [facility] because of complicated UTI, E. coli bacteremia, impacted renal stone causing hydronephrosis. Today he denies any fevers or chills, he has noted some right CV angle discomfort and foul-smelling urine for the past 2 days and he wonders if he has a urinary tract infection again. He is following closely with urology. He has an appointment next week to have another urological procedure to remove renal stones. Summary of the recent hospitalization is written below: Hospital Course and Medication Reconciliation [facility] (02/24/25-02/26/25) Patient presented for evaluation of left flank pain. CT with ureteral calculi and moderate hydroureteronephrosis. UA with UTI. Urology consulted and patient now s/p stent placement. Bcx positive for gram negative bacteremia E. Coli. Treated with ceftriaxone. ID consulted and patient discharged homeon Augmentin to complete total of 14 days. Patient to follow up with urology. Medication changes that occurred during hospitalization include: ?? Added ?? Amoxicillin- clavulanate 875-125 mg every 12 hours x 11 days ?? Ibuprofen 400 mg three times a day as needed for pain x 5 days ?? Ondansetron 4 mg every 8 hours as needed for n/v ?? Oxybutynin 5 mg three times a day as needed for urinary discomfort ?? Tamsulosin 0.4 mg once daily ?? Changed: none ?? Discontinued: tylenol, amlodipine, gabapentin, fish oil, omeprazole, tizanidine [facility] (03/08/25-03/10/25) Patient with h/o nephrolithiasis and recent discharge s/p urethral stent placed on 02/24 presented with bilateral flank pain, fevers and chills. CT abdomen showed resolution of previous hydroureteronephrosis. UA with leukocyte positive and RBC. Treated with ceftriaxone and patient responded well. Discharged home on cefpodoxime for 5 days and to follow up with urology. Medication changes that occurred during hospitalization include: ?? Added ?? Cefpodoxime 200 mg every 12 hours x 5 days ?? Changed: none ?? Discontinued: none Preferred Pharmacy: [facility]/pharmacy #[id number] - [place] - [address] [address] Review of Systems Constitutional: Negative for chills, fatigue and fever. HENT: Negative for sore throat. Respiratory: Negative for cough, chest tightness and shortness of breath. Cardiovascular: Negative for chest pain, palpitations and leg swelling. Gastrointestinal: Negative for abdominal pain and blood in stool. Genitourinary: See HPI Objective Vitals: 03/16/25 1403 BP: (!) 142/86 BP Location: Left arm Patient Position: Sitting BP Cuff Size: Adult Pulse: 81 Resp: 14 Temp: 97 ??F (36.1 ??C) TempSrc: Temporal SpO2: 97% Weight: 232 lb 3.2 oz (105 kg) Height: 5' 8 (1.727 m) Physical Exam Constitutional: Appearance: Normal appearance. Cardiovascular: Rate and Rhythm: Normal rate and regular rhythm. Heart sounds: No murmur heard. Pulmonary: Effort: Pulmonary effort is normal. No respiratory distress. Breath sounds: No wheezing, rhonchi or rales. Abdominal: Palpations: Abdomen is soft. Tenderness: There is no abdominal tenderness. Musculoskeletal: Right lower leg: No edema. Left lower leg: No edema. Neurological: Mental Status: He is alert. Assessment/Plan Diagnoses and all orders for this visit: Renal stones Comments: Patient urine dip today showed large blood, negative nitrates, trace leukocytes. I explained to thepatient it is possible these findings are secondary to his documented renal stones or persistent UTI. I encouraged the patient to continue drinking plenty of fluids, keep upcoming appointment with urology, I will send the urine for culture and extend the course of cefpodoxime he was prescribed at discharge from [facility]. Dysuria - POCT Urinalysis - Urinalysis, Complete, with Reflex to Culture; Future Bacteremia due to Escherichia coli Comments: resoved Other orders - cefpodoxime (Vantin) 200 MG tablet; Take 1 tablet (200 mg) by mouth 2 times daily for 5 days. Future Appointments Date Time Provider Department Center 03/19/2025 8:45 AM Breanne LEARY DENT [facility] 03/30/2025 9:00 AM Skylar Mortensen PharmD MEDICINE [facility] 05/04/2025 10:00 AM Toni Watts MD [facility] documented in this encounter Plan of Treatment Upcoming Encounters Date Type Department Care Team (Late st Contact Info) Description 03/19/2025 8:45 AM EDT Office Visit [facility] [address] [place] [address] Breanne Waddell [address] [place], [place] [phone] 03/30/2025 9:00 AM EST Medication Management [address] [address] Puia, Skylar, PharmD [address] [place] [address] 05/04/2025 10:00 AM EST Office Visit [address] [address] Toni Watts MD [address] [place] [address] Scheduled Orders Name Type Priority Associated Diagnoses Orde r Schedule Urinalysis, Complete, with Reflex to Culture Lab Routine Dysuria Expected: 03/16/2025 (Approximate), Expires: 03/16/2026 documented as of this encounter Procedures Procedure Name Priority Date/Time Associated Diagnosis Comments POCT URINALYSIS DIPSTICK Routine 03/16/2025 2:35 PM EDT Dysuria documented in this encounter Results * (ABNORMAL) POCT Urinalysis (03/16/2025 2:35 PM EDT) Color, UA Light Yellow Clarity, UA Clear Glucose, UA Negative Bilirubin, UA Negative Ketones, UA Negative Spec Grav, UA 1.015 Blood, UA Positive(A) Negative, None Detected Comment:large pH, UA 5.5 Protein, UA Negative Urobilinogen, UA 0.2 Leukocytes, UA Trace Negative, Rare, Trace Nitrite, UA Negative Negative, None Detected Urine (Urine, Random) 03/16/2025 2:35 PM EDT Toni Watts MD POINT OF CARE TEST ENTER/EDIT OR DERABLES Final Result documented in this encounter Visit Diagnoses Diagnosis Renal stones- Primary Dysuria Bacteremia due to Escherichia coli Bacteremia documented in this encounter Care Teams Foundation Drill Operator Relationship Specialty Start Date End Date Name, MD Toni [address] [place] [address] PCP - General Family Medicine 07/11/21 documented as of this encounter
--- OUTSIDE RECORDS SUMMARY | 2025-03-16 20:25 | XMS_ITS | Encounter Summary ---
Author Organization [employer] Address [address] [place] [address] 7 [place] [address] Care Team Providers Care Multiplex Operator Name Role Phone Name, Toni TREADWELL Primary Care Provider Reason for Visit * Reason Comments Transition Of Care (Tcm) HDF- Unschedule d LVM Encounter Details Date Type Department Care Team (Late st Contact Info) Description 03/11/[address] [facility] [address] [place] [address] Name, MD Toni [address] [place] [address] Transition Of Care (Tcm) (HDF- Unscheduled LVM) Social History Tobacco Use Types Packs/Day Years Used Date Smoking Tobacco: Never Passive Smoke Exposure: Never Smokeless Tobacco: Never Alcohol Use Standard Drinks/Week Comments Never 0 [...] AM EDT documented as of this encounter Miscellaneous Notes * Significant Event - Cristina Dwyer - 03/11/2025 8:49 AM EDT 03/11/25 0848 Hospital Discharges and Admission for [facility] Type of Visit Hospital Admission Date of Admission/Visit 03/08/25 Date of Discharge 03/10/25 Facility [facility] Diagnosis Abdominal pain, Left nephrolithiasis, UTI, Leukocytosis, HTN, HLD, Hematuria Disposition Discharged Home Follow-Up Actions Follow-Up Needed Provider appointment Follow-Up Outcome Left Voicemail Initial Contact Date 03/11/25 RISHI Stapleton placed outbound call to patient for HDF outreach. CC placing call to offer patient with an HDF appointment with provider. No answer at this time. Patient's name and were not confirmed. CC left detailed message educating patient on importance of following up with provider following an inpatient admission. Provided contact information requesting a call back in order to schedule theHDF appointment. Patient educated via voicemail on extended clinic hours on Mondays and Wednesdays,and Walk-In Urgent Care Located in [facility]. Patient provided with after-hours line for [facility], , which offer night time triage service and option to transfer to fabrication welder provider if needed. CC scanned [facility] discharge into patient's chart. CC will place additional outreach call within 2-5business days. documented in this encounter Plan of Treatment Upcoming Encounters Date Type Department Care Team (Late st Contact Info) Description 03/19/2025 8:45 AM EDT Office [address] [facility] AD[facility] [address] [place] [address] Breanne Waddell [address] [place] [address] [phone] 03/30/2025 9:00 AM EST Medication Management [facility] [address] [place] [address] Skylar Mortensen, PharmD [address] [place] [address] 05/04/2025 10:00 AM EST Office Visit [address] [address] Name, MD Toni [address] [place] [address] documented as of this encounter Visit Diagnoses Not on filedocumented in this encounter Care Teams Multiplex Operator Relationship Specialty Start Date End Date NameToni MD [address] [place] [address] PCP - General Family Medicine 07/11/21 documented as of this encounter
--- OUTSIDE RECORDS SUMMARY | 2025-03-16 20:25 | XMS_ITS | Clinical Summary ---
Author Organization [facility] Address [address] [place] [address] Phone Care Team Providers Care Research And Development Researcher Name Role Phone Yovany Caballero MD Primary Care Provider [phone] Allergies Active Allergy Reactions Criticality Noted Date Comments Tramadol Anaphylaxis,Shortnes s of breath High 03/20/2017 Other reaction(s): SOB Other reaction(s): Chest Pain Medications atorvastatin (LIPITOR) 20 mg tablet Take 1 tablet (20 mg total) by mouth at bedtime. 01/11/2025 Active oxyBUTYnin (DITROPAN) 5 mg tablet Take 1 tablet (5 mg total) by mouth 3 times daily as needed. 02/26/2025 Active valsartan-hydro CHLOROthiazide (DIOVAN-HCT) 80-12.5 mg per tablet Take 1 tablet by mouth 1 (one) time each day. 02/16/2025 Active tamsulosin (FLOMAX) 0.4 mg 24 hr capsule Take 1 capsule (0.4 mg total) by mouth 1 (one) time each day. for 14 days Active Encounters Date Type Department Care Team Description 03/12/2025 Lab Requisition [facility] - Main Lab [address] [facility] [place] [address] Robin Cooney MD Urinary tract infection, site not specified from Last 3 Months Surgical History Surgery Date Site/Laterality Comments KIDNEY STONE SURGERY Medical History Medical History Date Comments Chronic back pain 08/16/2016 DX:Chronic shahzad k pain Diverticulosis 02/04/2017 DX:Diverticulosi s GERD (gastroesophageal reflux disease) 11/11/2017 DX:GERD (gastroesophageal reflux disease) Helicobacter pylori gastritis 10/10/2017 DX :Helicobacter pylori gastritis Hyperlipidemia 12/05/2017 DX:Hyperlipidemi a Internal hemorrhoids 01/18/2017 DX:Internal hemorrhoids Prediabetes 12/10/2016 DX:Prediabetes Family History Medical History Relation Name Comments Seizures Father Relation Name Status Comments Father Mother Alive Social History Tobacco Use Types Packs/Day Years Used Date Smoking Tobacco: Never Smokeless Tobacco: Never Alcohol Use Standard Drinks/Week Comments No 0 (1 standard drink = 0.6 oz pur e alcohol) Sex and Gender Information Value Date Recorded Sex Assigned at Not on file Legal Sex Male 2:16 AM EST Gender Identity Not on file Sexual Orientation Not on file Obstetrics History Last Filed Vital Signs Vital Sign Reading Time Taken Comments Blood Pressure - - Pulse - - Temperature - - Respiratory Rate - - Oxygen Saturation - - Inhaled Oxygen Concentration - - Weight 109 kg (240 lb) 03/16/2025 11:00 AM EDT Height 172.7 cm (5' 8 ) 03/16/2025 11:00 AM EDT Body Mass Index 36.49 03/16/2025 11:00 AM EDT Plan of Treatment Upcoming Encounters Date Type Department Care Team (Latest Contact Info) Description 03/22/2025 9:30 AM EST Hospital Encounter [facility] OR [address] [place] [phone] Chato Falcon MD [address] [address] 03/22/2025 9:30 AM EST - 03/22/2025 11:00 AM EST Surgery [facility] OR [address] [place] [phone] Chato Falcon MD [address] [address] CYSTOSCOPY LEFT URETEROSCOPY, LASER LITHOTRIPSY, STENT [[id number] (CPT )] Scheduled Procedures Name Priority Associated Diagnoses Date/Ti mi CYSTOSCOPY URETEROSCOPY Calculus of ureter 03/22/2025 9:30 AM EST Health Maintenance Due Date Last Done Comments Colorectal Cancer Screening: Colonoscopy 1973 Hepatitis B Vaccines (1 of 3 - 19+ 3-dose series) 1992 Pneumococcal Vaccine: 50+ Years (1 of 2 - PCV) 1992 Zoster Vaccines (1 of 2) 1992 HIV Screening 04/28/2022 Hepatitis C Screening 04/28/2022 Social Influencers of Health Screening 04/28/2022 Depression Screening 05/20/2024 COVID-19 Vaccine (4 - season) 2025 10/30/2020, 10/09/2020, 07/30/2020 Influenza Vaccine (#1) 2025 Hypertension/CHF/CAD Annual BMP Blood Test 01/09/2026 01/09/2025 Cholesterol Screening (Lipid Panel) 01/09/2030 01/09/2025 DTaP,Tdap,and Td Vaccines (5 - Td or Tdap) 08/09/2031 08/08/2021, 02/20/2016, 12/13/2014, Additional history exists RSV Immunization Adult Patients (1 - 1-dose 75+ series) 2048 HIB [...] on patient's age to complete this topic MMR Vaccines Aged Out No longer eligi ble based on patient's age to complete this topic Meningococcal ACWY Vaccine Aged Out N o longer eligible based on patient's age to complete this topic Meningococcal B Vaccine Aged Out No l onger eligible based on patient's age to complete this topic RSV Immunization Patients Under 20 months Aged Out No longer eligible based on patient's age to complete this topic Varicella Vaccines Aged Out No longer eligible based on patient's age to complete this topic Goals Goal Patient Goal Type Associated Problems Recent Progress Patient-Stated? Author Autogenerat ed Goal Care Plan Autogenerated Problem No Santy Espinal Procedures Procedure Name Priority Date/Time Associated Diagnosis Comments URINALYSIS WITH REFLEX MICROSCOPIC Routine 03/12/2025 2:28 PM EDT Urinary tract infection, site not specified URINALYSIS WITH REFLEX MICROSCOPIC Routine 03/12/2025 2:28 PM EDT Urinary tract infection, site not specified CULTURE URINE Routine 03/12/2025 2:28 PM EDT Urinary tract infection, site not specified from Last 3 Months Results * (ABNORMAL) Urinalysis with reflex microscopic (03/12/2025 2:28 PM EDT) Specific [place] Urine 1.029 1.003 - 1.030 LAB URINALYSIS - AUTOMATED METHOD 03/12/2025 7:07 PM [facility] pH, Urine 6.0 5.0 - 8.0 pH LAB URINALYSIS - AUTOMATED METHOD 03/12/2025 7:07 PM [facility] Leukocytes, Urine Small(A) Negative LAB URINALYSIS - AUTOMATED METHOD 03/12/2025 7:07 PM [facility] Nitrite, Urine Negative Negative LAB URINALYSIS - AUTOMATED METHOD 03/12/2025 7:07 PM [facility] Protein, Urine 30(A) <=Trace mg/dL LAB URINALYSIS - AUTOMATED METHOD 03/12/2025 7:07 PM [facility] Glucose, Urine Negative Negative mg/dL LAB URINALYSIS - AUTOMATED METHOD 03/12/2025 7:07 PM [facility] Ketones, Urine Trace(A) Negative mg/dL LAB URINALYSIS - AUTOMATED METHOD 03/12/2025 7:07 PM [facility] Urobilinogen , Urine 0.2 0.2 - 1.0 mg/dL LAB URINALYSIS - AUTOMATED METHOD 03/12/2025 7:07 PM [facility] Bilirubin, Urine Negative Negative LAB URINALYSIS - AUTOMATED METHOD 03/12/2025 7:07 PM [facility] Blood, Urine Large(A) Negative LAB URINALYSIS - AUTOMATED METHOD 03/12/2025 7:07 PM [facility] RBC, Urine 238.4(H) 0 - 4 /HPF LAB URINALYSIS - AUTOMATED METHOD 03/12/2025 7:[address] [facility] WBC, Urine 14.1(H) 0 - 4 /HPF LAB URINALYSIS - AUTOMATED METHOD 03/12/2025 7:07 PM [facility] Squamous Epithelial, Urine 68(H) 0 - 60 /LPF LAB URINALYSIS - AUTOMATED METHOD 03/12/2025 7:[address] [facility] Crystals, Urine Moderate Calcium Oxalate crystals. /LPF LAB URINALYSIS - AUTOMATED METHOD 03/12/2025 7:07 PM [facility] Bacteria, Urine Few(A) Negative /HPF LAB URINALYSIS - AUTOMATED METHOD 03/12/2025 7:07 PM [facility] Hyaline Casts, Urine 1.2 0 - 3 /LPF LAB URINALYSIS - AUTOMATED METHOD 03/12/2025 7:07 PM [facility] Mucus, Urine Small None /HPF LAB URINALYSIS - AUTOMATED METHOD 03/12/2025 7:07 PM [facility] Urine Urine specimen obtained by clean catch procedure / Unknown 03/12/2025 2:28 PM EDT 03/12/2025 5:47 PM EDT us Robin Cooney MD LAB URINE ORDERABLES Final Resul t [facility] [address] [place] [address], * Culture urine (03/12/2025 2:28 PM EDT) Culture, Urine No growth 03/13/2025 11:[address] [facility] Urine Urine specimen obtained by clean catch procedure / Unknown 03/12/2025 2:28 PM EDT 03/12/2025 5:47 PM EDT us Robin Cooney MD LAB MICROBIOLOGY - GENERAL ORDER PADMINI Final Result [facility] [address] [place] [address], from Last 3 Months Additional Health Concerns Active Problems Noted Date Diagnosed Date Autogenerated Problem 03/05/2025 Insurance [facility] MEDICAID ADVANTAGE [address] [place] [address] Care Teams Research And Development Researcher Relationship Specialty Start Date End Date Yovany Caballero MD [address] [facility] [address] [place] [address] PCP - General Internal Medicine 04/02/18
--- OUTSIDE RECORDS SUMMARY | 2025-03-16 20:25 | XMS_ITS | Encounter Summary ---
Author Organization [employer] Address [address] [place] [address] 7 [place] [address] Care Team Providers Care Assembler Golf Wood Head Name Role Phone Name, Toni TREADWELL Primary Care Provider [phone] Encounter Details Date Type Department Care Team (Late st Contact Info) Description 11/28/2024 Orders Only [facility] MED & PEDS [address] [place] [address] Jace Frederick MD [address] [place] [address] Social History Tobacco Use Types Packs/Day Years [...] AM EDT documented as of this encounter Plan of Treatment Upcoming Encounters Date Type Department Care Team (Late st Contact Info) Description 03/19/2025 8:45 AM EDT Office Visit [facility] ADULT DENTAL [address] [place] [address] Breanne Waddell [address] [place] [address] 03/30/2025 9:00 AM EST Medication Management [facility] [address] [place] [address] PuiaSkylar, PharmD [address] [place] [address] 05/04/2025 10:00 AM EST Office Visit [address] [address] Name, MD Toni [address] [place] [address] documented as of this encounter Visit Diagnoses Not on filedocumented in this encounter Care Teams Assembler Golf Wood Head Relationship Specialty Start Date End Date Name, MD Toni [address] [place] [address] PCP - General Family Medicine 07/11/21 documented as of this encounter
--- OUTSIDE RECORDS SUMMARY | 2025-03-16 20:25 | XMS_ITS | Encounter Summary ---
Author Organization [facility] Address [address] [place] [phone] Care Team Providers Care Centerpuncher Name Role Phone Yovany Caballero MD Primary Care Provider [phone] Encounter Details Date Type Department Care Team (Late st Contact Info) Description 03/12/[address] [facility] [address] [facility] [place] [address] Robin Cooney MD [address] [employer] [address] [place] [address] Urinary tract infection, site not specified Social History Tobacco Use Types Packs/Day Years Used Date Smoking Tobacco: Never Smokeless Tobacco: Never Alcohol Use Standard Drinks/Week Comments No 0 (1 standard drink = 0.6 oz pur e alcohol) Sex and Gender Information Value Date Recorded Sex Assigned at Not on file Legal Sex Male 2:16 AM EST Gender Identity Not on file Sexual Orientation Not on file documented as of this encounter Plan of Treatment Upcoming Encounters Date Type Department Care Team (Latest Contact Info) Description 03/22/2025 9:30 AM EST Hospital Encounter [facility] OR [address] [place] [phone] Chato Falcon MD [address]har[place] [address] [place] [address] 03/22/2025 9:30 AM EST - 03/22/2025 11:00 AM EST Surgery [address] [phone] Chato Falcon MD [address] [employer] [address] [place] [address] CYSTOSCOPY LEFT URETEROSCOPY, LASER LITHOTRIPSY, STENT [[id number] (CPT )] Scheduled Procedures Name Priority Associated Diagnoses Date/Ti oh CYSTOSCOPY URETEROSCOPY Calculus of ureter 03/22/2025 9:30 AM EST documented as of this encounter Goals Goal Patient Goal Type Associated Problems Recent Progress Patient-Stated? Author Autogenerat ed Goal Care Plan Autogenerated Problem No Santy Espinal documented as of this encounter Procedures Procedure Name Priority Date/Time Associated Diagnosis Comments URINALYSIS WITH REFLEX MICROSCOPIC Routine 03/12/2025 2:28 PM EDT Urinary tract infection, site not specified URINALYSIS WITH REFLEX MICROSCOPIC Routine 03/12/2025 2:28 PM EDT Urinary tract infection, site not specified CULTURE URINE Routine 03/12/2025 2:28 PM EDT Urinary tract infection, site not specified documented in this encounter Results * (ABNORMAL) Urinalysis with reflex microscopic (03/12/2025 2:28 PM EDT) Specific [place] Urine 1.029 1.003 - 1.030 LAB URINALYSIS - AUTOMATED METHOD 03/12/2025 7:07 PM [facility] pH, Urine 6.0 5.0 - 8.0 pH LAB URINALYSIS - AUTOMATED METHOD 03/12/2025 7:07 PM [facility] Leukocytes, Urine Small(A) Negative LAB URINALYSIS - AUTOMATED METHOD 03/12/2025 7:07 PM [facility] Nitrite, Urine Negative Negative LAB URINALYSIS - AUTOMATED METHOD 03/12/2025 7:07 PM [facility] Protein, Urine 30(A) <=Trace mg/dL LAB URINALYSIS - AUTOMATED METHOD 03/12/2025 7:07 PM [facility] Glucose, Urine Negative Negative mg/dL LAB URINALYSIS - AUTOMATED METHOD 03/12/2025 7:07 PM [facility] Ketones, Urine Trace(A) Negative mg/dL LAB URINALYSIS - AUTOMATED METHOD 03/12/2025 7:07 PM [facility] Urobilinogen , Urine 0.2 0.2 - 1.0 mg/dL LAB URINALYSIS - AUTOMATED METHOD 03/12/2025 7:07 PM [facility] Bilirubin, Urine Negative Negative LAB URINALYSIS - AUTOMATED METHOD 03/12/2025 7:07 PM [facility] Blood, Urine Large(A) Negative LAB URINALYSIS - AUTOMATED METHOD 03/12/2025 7:07 PM [facility] RBC, Urine 238.4(H) 0 - 4 /HPF LAB URINALYSIS - AUTOMATED METHOD 03/12/2025 7:07 PM [facility] WBC, Urine 14.1(H) 0 - 4 /HPF LAB URINALYSIS - AUTOMATED METHOD 03/12/2025 7:07 PM [facility] Squamous Epithelial, Urine 68(H) 0 - 60 /LPF LAB URINALYSIS - AUTOMATED METHOD 03/12/2025 7:07 PM [facility] Crystals, Urine Moderate Calcium Oxalate crystals. /LPF LAB URINALYSIS - AUTOMATED METHOD 03/12/2025 7:07 PM [facility] Bacteria, Urine Few(A) Negative /HPF LAB URINALYSIS - AUTOMATED METHOD 03/12/2025 7:07 PM [facility] Hyaline Casts, Urine 1.2 0 - 3 /LPF LAB URINALYSIS - AUTOMATED METHOD 03/12/2025 7:07 PM [facility] Mucus, Urine Small None /HPF LAB URINALYSIS - AUTOMATED METHOD 03/12/2025 7:07 PM [facility] Urine Urine specimen obtained by clean catch procedure / Unknown 03/12/2025 2:28 PM EDT 03/12/2025 5:47 PM EDT us Robin Cooney MD LAB URINE ORDERABLES Final Resul t Performing Organization Address City/[facility]/ZIP Co de Phone Number [facility] [address] [place] [address], [place] [phone] * Culture urine (03/12/2025 2:28 PM EDT) Culture, Urine No growth 03/13/2025 11:45 AM EDT [facility] Urine Urine specimen obtained by clean catch procedure / Unknown 03/12/2025 2:28 PM EDT 03/12/2025 5:47 PM EDT Robin Cooney MD LAB MICROBIOLOGY - GENERAL ORDER PADMINI Final Result Performing Organization Address [facility] Co de Phone Number [facility] [address] [place] [address], [place] [phone] documented in this encounter Visit Diagnoses Diagnosis Urinary tract infection, site not specified Calculus of ureter documented in this encounter Additional Health Concerns Active Problems Noted Date Diagnosed Date Autogenerated Problem 03/05/2025 documented as of this encounter Care Teams Centerpuncher Relationship Specialty Start Date End Date Yovany Caballero MD [address] [address] PCP - General Internal Medicine 04/02/18 documented as of this encounter
--- OUTSIDE RECORDS SUMMARY | 2025-03-16 20:25 | XMS_ITS | Encounter Summary ---
Author Organization [employer] Address [address] [place] [address] [address] [place] [address] Care Team Providers Care Banquet Cook Name Role Phone Name, Toni TREADWELL Primary Care Provider [phone] Reason for Visit * Reason Onset Date Comments ED Follow Up 04/26/2023 Encounter Details Date Type Department Care Team (Late st Contact Info) Description 04/26/2023 Telephone [facility] MEDICINE [address] [place] [address] Name, MD Toni [address] [place] [address] ED Follow Up Social History Tobacco Use Types Packs/Day Years [...] as of this encounter Miscellaneous Notes * Telephone Encounter - Bryce Patel RN - 04/26/2023 2:47 PM EST Return T/C x 1 pm for status check and to schedule ED follow up, No answer. LVM to call back on [phone]. * Telephone Encounter - Tone Rodríguez - 04/26/2023 10:45 AM EST Patient calling to report ED visit on : Date: 04/25/23 Hospital: [facility] Seen for: Back Pain and Kidney Stones Patient advised will forward to team nurse for follow up documented in this encounter Plan of Treatment Upcoming Encounters Date Type Department Care Team (Late st Contact Info) Description 03/19/2025 8:45 AM EDT Office Visit [facility] ADULT DENTAL [address] [place] [address] Breanne Waddell [address] [place] [phone] 03/30/2025 9:00 AM EST Medication Management [facility] MEDICINE [address] [place] [address] Skylar Mortensen, PharmD [address] [place] [address] 05/04/2025 10:00 AM EST Office Visit [facility] MEDICINE [address] [place] [address] Name, [place] [address] documented as of this encounter Visit Diagnoses Not on filedocumented in this encounter Care Teams Banquet Cook Relationship Specialty Start Date End Date Name, [place] [address] PCP - General Family Medicine 07/11/21 documented as of this encounter
--- OUTSIDE RECORDS SUMMARY | 2025-03-16 20:25 | XMS_ITS | Encounter Summary ---
Author Organization [employer] Address [address] [place] [address] 7[address] [place] [address] Care Team Providers Care Foreman/Project Manager Name Role Phone Name, Toni TREADWELL Primary Care Provider [phone] Reason for Visit * Reason Onset Date Comments Chart Prep 03/15/2025 Encounter Details Date Type Department Care Team (Late st Contact Info) Description 03/15/2025 Telephone [facility] [address] [place] [address] Abdon Irene [place] Chart Prep Social History Tobacco Use Types Packs/Day Years Used Date Smoking Tobacco: Never Passive Smoke Exposure: Never Smokeless Tobacco: Never Alcohol Use Standard Drinks/Week Comments Never 0 (1 standard drink = 0.6 oz pur e alcohol) PHQ-2 Answer Date Recorded Patient Health Questionnaire-2 Score 0 07/02/2022 Housing Stability Answer Date Recorded What is your housing situation today? I have marla santizo 02/08/[address] you [...] encounter Miscellaneous Notes * Telephone Encounter - Abdon Irene MA - 03/15/2025 1:31 PM EDT Chart Prep Labs: done Images: not applicable Referrals: Booked Vaccines due: Covid, Flu, PCV20, Hep B, and Zoster Screenings: colonoscopyAlcohol/Substance Use Screening Overdue care gaps: SBIRT, PHQ-9, PADMA-7, and Disability screen HDF - note is in chart under media documented in this encounter Plan of Treatment Upcoming Encounters Date Type Department Care Team (Late st Contact Info) Description 03/19/2025 8:45 AM EDT Office Visit [facility] ADULT DENTAL [address] [place] [phone] Breanne Waddell [address] [place] [address] 03/30/2025 9:00 AM EST Medication Management [facility] [address] [place] [address] Skylar Mortensen, PharmD [address] [place] [address] 05/04/2025 10:00 AM EST Office Visit [facility] [address] [place] [address] Name, MD Toni [address] [place] [address] documented as of this encounter Visit Diagnoses Not on filedocumented in this encounter Care Teams Foreman/Project Manager Relationship Specialty Start Date End Date Name, MD Toni [address] [place] [address] PCP - General Family Medicine 07/11/21 documented as of this encounter
--- OUTSIDE RECORDS SUMMARY | 2025-03-16 20:25 | XMS_ITS | Clinical Summary ---
Author Organization [employer] Address [address] [place] [address] [address] [place] [address] Care Team Providers Care Reporting Consultant Name Role Phone Name, Toni TREADWELL Primary Care Provider [phone] Allergies Active Allergy Reactions Criticality Noted Date Comments Tramadol Low 07/02/2022 Other reaction(s): SOB Other reaction(s): Chest Pain Medications pantoprazole (Protonix) 40 MG EC tablet Take 1 tablet (40 mg) by mouth before breakfast. Do not crush, chew, or split. 30 tablet 2 Active atorvastatin (Lipitor) 20 MG tablet Take 1 tablet (20 mg) by mouth Once per day. 30 tablet 2025 Active valsartan-hydroCHLOR Othiazide (Diovan HCT) 80-12.5 MG tablet Take 1 tablet by mouth Once per day. 30 tablet 2025 Active ibuprofen 400 MG tablet Take 1 tablet by mouth if needed in the morning, at noon, and at bedtime for moderate pain. Take with food or milk Active ondansetron (Zofran) 4 MG tablet Take 4 mg by mouth every 8 (eight) hours if needed for nausea or vomiting. Active oxybutynin (Ditropan) 5 MG tablet Take 1 tablet by mouth if needed in the morning, at noon, and at bedtime (urinary discomfort) . Active cefpodoxime (Vantin) 200 MG tablet Take 1 tablet (200 mg) by mouth 2 times daily for 5 days. 10 tablet 025 2024 Active omega-3 (Fish Oil) 1000 MG capsuleIndications:P ure hyperglyceridemia TAKE 1 CAPSULE BY MOUTH EVERY MORNING 90 capsule 3 024 2024 Discontinued(M ed list cleanup (will not trigger notification to Pharmacy)) pyridoxine (Vitamin B-6) 50 MG tablet Take 50 mg by mouth in the morning. 024 2024 Discontinued(M ed list cleanup (will not trigger notification to Pharmacy)) celecoxib (CeleBREX) 200 MG capsule TAKE 1 CAPSULE BY MOUTH TWICE A DAY 60 capsule 2024 Discontinued(M ed list cleanup (will not trigger notification to Pharmacy)) amLODIPine (Norvasc) 5 MG tablet Take 1 tablet (5 mg) by mouth Once per day. 30 tablet 11 025 2024 Discontinued(I neffective) cefpodoxime (Vantin) 200 MG tablet Take 1 tablet by mouth 2 times daily. 025 2024 Discontinued(R eorder (will not trigger notification to Pharmacy)) Flomax 0.4 MG 24 hr capsule Take 1 capsule by mouth Once per day. 025 2024 Active Problems Problem Noted Date Diagnosed Date [...] Tylenol PRN+ Diclofenac gel Papillary thyroid carcinoma (CMS/HCC) 07/02/2022 Overview (08/23/2023): right thyroid lob[place] [facility] [place], he was found to have small 1.3cm encapsulated PTC with negative margins and negative lymph nodes. Surgery is considered curative and the plan is that he will follow with [facility] to check the TSH (low range TSH was recommended to his endocrine surgeon) History of lobectomy of thyroid 07/02/2022 Overview (08/23/2023): right thyroid lobectomy at [facility] 10/2021, he was found to have small 1.3cm encapsulated PTC with negative margins and negative lymph nodes. Surgery is considered curative and the plan is that he will follow with [facility] to check the TSH (low range [...] to pain management He then presented [place] [facility] [place] 05/01 until 05/04 for left flank [...] Encounters Date Type Department Care Team Description 03/16/2025 2:00 PM EDT Office Visit [facility] [address] [place] [address] Name, MD Toni Renal stones (Primary Dx); Dysuria; Bacteremia due to Escherichia coli 03/16/2025 Travel 03/15/[address] [address] [place] Chart Prep 03/11/2025 Patient Outreach [address] [address] Toni Watts MD Transition Of Care (Tcm) (HDF- Unscheduled LVM) 03/04/[address] [address] Toni Watts MD Change PCP 03/02/2025 10:30 AM EDT Telemedicine [address] [address] Karoline Carrero, YANETH Primary hypertension 03/02/2025 Travel 03/01/2025 Patient Outreach [facility] [address] [place] [address] [phone] Toni Watts MD Transition Of Care (Tcm) (HDF scheduled. ) 02/16/2025 10:15 AM EDT Office Visit [address] [address] Toni Watts MD Primary hypertension (Primary Dx); CASTILLO (obstructive sleep apnea); Vaccine refused by patient 02/16/2025 Travel 02/08/2025 Patient Outreach [facility] [phone] Toni Watts MD Pre-visit Planning (SDOH negative, Tobacco screening negative. ) 01/11/2025 Results Follow-Up [address] [address] Toni Watts MD TSH W/Reflex to FT4, Comprehensive Metabolic Panel, Lipid Panel, Standard 12/25/2024 9:30 AM EDT Clinical Support [address] [address] Celestina Garcia, YANETH Primary hypertension (Primary Dx); History of lobectomy of thyroid; Screening for cholesterol level 12/25/[address] [address] Toni Watts MD 12/25/2024 Travel from Last 3 Months Immunizations Immunization Administration Dates Next Due Pfizer Covid-19 Vaccine + 10/09/2020, 1 Td (adult), 5 Lf tetanus [...] Mass Index 35.31 03/16/2025 2:03 PM EDT Plan of Treatment Upcoming Encounters Date Type Department Care Team (Late st Contact Info) Description 03/19/2025 8:45 AM EDT Office Visit [facility] [address] [place] [address] Breanne Waddell [address] [place] [phone] 03/30/2025 9:00 AM EST Medication Management [facility] [address] [place] [address] Skylar Mortensen, PharmD [address] [place] [address] 05/04/2025 10:00 AM EST Office Visit [facility] [address] [place] [phone] Name, MD Toni [address] [place] [address] Health Maintenance Due Date Last Done Comments [...] 2) 09/05/2023 Dental Prophylaxis 01/17/2024 07/18/2023, 11/26/2022 Depression Screening 03/12/2024 03/12/2023, 03/12/20 Dental X-Ray: Bitewings 09/26/2024 09/26/2023, 11/26 COVID-19 Vaccine ( season) 2025 10/30/2020, 10/09/2020, 07/30/2020 Influenza Vaccine (#1) 2025 Dental X-Ray: Full Mouth 11/27/2025 11/26/2022 SDOH Screening 02/08/2026 02/08/2025 Tobacco Screening 03/16/2026 03/16/2025 Lipid Panel 01/09/2030 01/09/2025, 04/0 09/2023, 07/02/2022, Additional history exists DTaP/Tdap/Td Vaccines (3 - Td or Tdap) 08/09/2031 08/08/2021, 12/13/2014, 12/13/2011 RSV [...] DIPSTICK Routine 03/16/2025 2:35 PM EDT Dysuria LIPID PANEL, STANDARD Routine 01/09/2025 9:12 AM EDT Screening for cholesterol level COMPREHENSIVE METABOLIC PANEL Routine 01/09/2025 9:12 AM EDT Screening for cholesterol level TSH W/REFLEX TO FT4 Routine 01/09/2025 9 :12 AM EDT History of lobectomy of thyroid BITEWING - SINGLE RADIOGRAPHIC IMAGE Routine 09/26/2023 8:00 AM EDT PROPHYLAXIS - ADULT Routine 07/18/2023 3 :00 PM EST INTRAORAL - COMPLETE SERIES OF RADIOGRAPHIC IMAGES Routine 11/26/2022 9:00 AM EDT Encounter for dental examination COMPREHENSIVE ORAL EVALUATION - NEW OR ESTABLISHED PATIENT Routine 11/26/2022 9:00 AM EDT from Last 3 Months or Most Recently Relevant to Health Maintenance Results * (ABNORMAL) POCT Urinalysis (03/16/2025 2:35 [...] Urine (Urine, Random) 03/16/2025 2:35 PM EDT us Toni Watts MD POINT OF CARE TEST ENTER/EDIT OR DERABLES Final Result * TSH W/Reflex to FT4 (01/09/2025 9:12 AM EDT) TSH reflex Free T4 1.75 0.32 - 4.0 uIU/mL [facility] Blood Venous blood specimen / Unknown 01/09/2025 9:12 AM EDT 01/09/2025 9:12 AM EDT us Toni Watts MD LAB BLOOD ORDERABLES Final Resul t [facility] [address] [place] [phone] * (ABNORMAL) Lipid Panel, Standard (01/09/2025 9:12 AM EDT) Triglycerides 456(H) <150 mg/dL [facility] Comment:Desirable Triglyceri de: less than 150 mg/dLBorderline High Triglyceride 150-199 mg/dLHigh Triglyceride: 200-499 mg/dLVery High Triglyceride: greater than or equal to 5OO mg/dL Cholesterol 175 <200 mg/dL [facility] Comment:Desirable Cholestero l: less than 200 mg/dLBorderline High Cholesterol: 200-239 mg/dLHigh Cholesterol: greater than 239 mg/dL LDL Cholesterol Calculated TNP <100 mg/dL [facility] Comment:Unable to calculate the LDL. The formula of Friedwald,Keen, and Viktor is only valid if the triglycerides areless than 400 mg/dl. HDL Cholesterol 29(L) >40 mg/dL [facility] Comment:Desirable HDL: great er than 40 mg/dL Note: This HDL assay may give artificially low results in patients with liver disease. Blood Venous blood specimen / Unknown 01/09/2025 9:12 AM EDT 01/09/2025 9:12 AM EDT us Toni Name LAB BLOOD ORDERABLES Final Resul t [facility] [address] [place] [phone] [phone] * (ABNORMAL) Comprehensive Metabolic Panel (01/09/2025 9:12 AM EDT) Sodium 141 135 - 145 mmol/L [facility] Potassium 4.5 3.3 - 5.1 mmol/L [facility] Chloride 106 96 - 108 mmol/L [facility] Carbon Dioxide 26 22 - 29 mmol/L [facility] Anion Gap 14 12 - 20 [facility] Urea Nitrogen (BUN) 9 9 - 16 mg/dL [facility] Creatinine, Serum 0.93 0.5 - 1.4 mg/dL [facility] Estimated Glomerular Filt Rate >60 [facility] Comment:Chronic Kidney Disea se: Estimated GFR < 60 mL/min/1.48u6Bgybcs Kidney Disease: Estimated GFR < 15 mL/min/1.73m2 Glucose 102 60 - 115 mg/dL [facility] Calcium 9.1 8.4 - 10.2 mg/dL [facility] Bilirubin, Total 0.6 0.0 - 1.0 mg/dL [facility] Aspartate Amino Transferase 46(H) 5 - 37 U/L [facility] Alanine Aminotransferase 35 0 - 40 U/L [facility] Total Protein 8.6(H) 6.5 - 8.0 g/dL [facility] Albumin Level 4.1 3.5 - 5.0 g/dL [facility] Alkaline Phosphatase 101 39 - 117 U/L [facility] Blood Venous blood specimen / Unknown 01/09/2025 9:12 AM EDT 01/09/2025 9:12 AM EDT us Toni Name LAB BLOOD ORDERABLES Final Resul t [facility] [address] [place] [address] [phone] from Last 3 Months Insurance [facility] C3 Member Subscriber Plan / Payer (Ef fective 2025-Present) Name:Ifeanyi Jade Relation to Subscriber:Self Name:Ifeanyi Jade Payer ID:Not on file Group ID:Not on file Type:Medicaid Address: [facility] [id number] [place] [id number] [place], [place] [id number] [facility] ADULT Care Teams Reporting Consultant Relationship Specialty Start Date End Date Name, MD Toni [address] [place] [phone] PCP - General Family Medicine 07/11/21
--- OUTSIDE RECORDS SUMMARY | 2025-03-16 20:25 | XMS_ITS | Encounter Summary ---
Author Organization [employer] Address [address] [place] [address] Street [address] [place] [address] Care Team Providers Care Relay Assembler Name Role Phone Name, Toni TREADWELL Primary Care Provider [phone] Encounter Details Date Type Department Care Team (Latest Contact Info) Description 03/16/2025 Travel Social History Tobacco Use Types Packs/Day Years [...] Description 03/19/2025 8:45 AM EDT Office Visit [facility] [address] [place] [phone] Breanne Waddell [address] [place] [phone] 03/30/2025 9:00 AM EST Medication Management [facility] [address] [place] [phone] Skylar Mortensen, PharmD [address] [place] [address] 05/04/2025 10:00 AM EST Office Visit [facility] [address] [place] [phone] Name, MD Toni [address] [place] [phone] documented as of this encounter Visit Diagnoses Not on filedocumented in this encounter Care Teams Relay Assembler Relationship Specialty Start Date End Date Name, MD Toni [address] [place] [phone] PCP - General Family Medicine 07/11/21 documented as of this encounter
[2025-03-16 21:16] LABS: Appearance Urine Clear; Glucose Urine UA Negative (Negative); PH 5.5 (5.0-9.0); Specific Gravity - Urine 1.010 (1.005-1.025); UMIC TRIGGER UACC YES
[2025-03-16 21:24] LABS: UACC Culture Trigger YES
== END 2025-03-16 18:39 | disposition home or self-care (01) ==
LOC: HO.HHCLNP 18:38
PROVIDERS: Visit Provider Internal Medicine Geriatric Medicine
DX: R30.0 Dysuria (principal)
CPT/HCPCS: 81001; 87086

== ENCOUNTER 2025-03-26 17:56 | Outpatient (REF) | payer OTHER, SELFPAY ==
--- OUTSIDE RECORDS SUMMARY | 2025-03-22 07:48 | XMS_ITS | Encounter Summary ---
Author Organization [facility] Address [address] [place] [address] Care Team Providers Care Regional Property Manager Name Role Phone Yovany Caballero MD Primary Care Provider [phone] Reason for Visit * Auth/Cert (Routine) Specialty Diagnoses / Procedures Referred By Du alicea Referred To Contact Diagnoses Calculus of ureter Calculus of ureter Procedures OH CYSTO W URETEROSCOPY/PYELOSCOPY W LITHOTRIPSY INCL INDWELLING URTRL STNT CYSTOSCOPY LEFT URETEROSCOPY, LASER LITHOTRIPSY, STENT Chato Falcon MD [address] [place] [phone] Phone: tel: fax: [facility] OR [address] [place] [phone] Phone: tel: Referral ID Status Reason Start Date Expiration Date Visits Re quested Visits Authorized [id number] 1 1 Encounter Details Date Type Department Care Team (Latest Contact Info) Description 03/22/2025 7:48 AM EST - 03/22/2025 12:22 PM [facility] OR [address] [place] [phone] Chato Falcon MD [address] [place] [address] Pain Discharge Disposition: Home or Self Care Social History Tobacco Use Types Packs/Day Years Used Date Smoking Tobacco: Never Smokeless Tobacco: Never Alcohol Use Standard Drinks/Week Comments No 0 (1 standard drink = 0.6 oz pur e alcohol) Interpersonal Safety Answer Date Record ed Physical Abuse Unrecognized value 03/22/2025 Verbal Abuse Unrecognized value 03/22/2025 Sex and Gender Information Value Date Recorded Sex Assigned at Not on file Legal Sex Male 2:16 AM EST Gender Identity Not on file Sexual Orientation Not on file documented as of this encounter Last Filed Vital Signs Vital Sign Reading Time Taken Comments Blood Pressure 108/69 03/22/2025 11:37 AM EST Pulse 77 03/22/2025 11:37 AM EST Temperature 36.2 C (97.1 F) 03/22/2025 11:37 AM EST Respiratory Rate 18 03/22/2025 11:37 AM EST Oxygen Saturation 96% 03/22/2025 11:37 AM EST Inhaled Oxygen Concentration - - Weight 109 kg (240 lb) 03/16/2025 11:00 AM EDT Height 172.7 cm (5' 8 ) 03/16/2025 11:00 AM EDT Body Mass Index 36.49 03/16/2025 11:00 AM EDT documented in this encounter Discharge Instructions * Attachments The following attachments cannot be sent through Care Everywhere. * General Anesthesia (Ukrainian) * Laser Lithotripsy: Post op (Ukrainian) * Ureteral Stent Placement: Post op (Ukrainian) documented in this encounter Medications at Time of Discharge atorvastatin (LIPITOR) 20 mg tablet Take 1 tablet (20 mg total) by mouth at bedtime. 01/11/2025 cefpodoxime (VANTIN) 200 mg tablet Take 1 tablet (200 mg total) by mouth 2 (two) times a day. for 5 days 03/16/2025 oxyBUTYnin (DITROPAN) 5 mg tablet Take 1 tablet (5 mg total) by mouth 3 times daily as needed. 02/26/2025 valsartan-hydroCH LOROthiazide (DIOVAN-HCT) 80-12.5 mg per tablet Take 1 tablet by mouth 1 (one) time each day. 02/16/2025 tamsulosin (FLOMAX) 0.4 mg 24 hr capsule Take 1 capsule (0.4 mg total) by mouth 1 (one) time each day. for 14 days documented as of this encounter Discharge Disposition Disposition Code Departure Means Destination Comment s Home or Self Care Wheelchair documented in this encounter H&P Notes * Chato Falcon MD - 03/22/2025 9:20 AM EST Patient is seen preoperatively, there has been no change in the history and physical exam, Heart is regular rate and rhythm Lungs clear with normal respiratory movements. documented in this encounter Procedure Notes * Sheeba Calderon RN - 03/22/2025 12:01 PM EST All written dc instructions reviewed w/pt who verbalized understanding * Chato Falcon MD - 03/22/2025 10:10 AM EST CYSTOSCOPY LEFT URETEROSCOPY, LASER LITHOTRIPSY, STENT (L) OPERATIVE NOTE Date: 03/22/2025 Location: [facility] Name: Nicole Jade, : 1975, Diagnosis Pre-op Diagnosis * Calculus of ureter [N20.1] Post-op Diagnosis * Calculus of ureter [N20.1] Procedures CYSTOSCOPY LEFT URETEROSCOPY, LASER LITHOTRIPSY, STENT [id number] - [place] CYSTO W URETEROSCOPY/PYELOSCOPY W LITHOTRIPSY INCL INDWELLING URTRL STNT Additional Procedures: Laser of proximal left ureteral stricture and stone in addition to treating/lasering the left renal stones and changing the left ureteral stent Indications: Nicole Jade is an 49 y.o. male who is having surgery for Calculus of ureter /kidney. Surgeon(s) & Manager Beverage(s) * Chato Falcon MD - Primary Anesthesia: general ASA: ASA status not filed in the log. Estimated Blood Loss: None Drains: * No LDAs found * Specimen: None Procedure Details: Patient was placed on the operating table in the dorsolithotomy position, groin and genitalia were prepped and draped in usual manner for cystoscopy. 21 Irish cystoscope was passed per urethra into the bladder identify the distal aspect of the leftureteral stent and grasped it with a rigid grasper removing it from the urethra for several centimeters. I cut the distal coil off the stent and passed a 0.038 guidewire through the stent up into the kidney under fluoroscopic guidance then removed the remainder of the stent leaving the guidewire in place. Cystoscope was replaced into the bladder and a second 0.038 guidewire was passed into the left ureter up into the kidney without resistance using fluoroscopic guidance. At this point a 12-14 Irish 36 cm ureteral access sheath was placed over one of the wires up into the proximal ureter. At this point I advanced the flexible ureteroscope via the access sheath into the proximal ureter and came up on an area of stenosis at or just below the ureteropelvic junction, I could see that there was a stone impacted in the wall of the ureter in this area it was yellowish and a tissue was inflamed and fibrotic looking the area was stenotic. I called for the 200 nm laser fiber and using settings of 0.4 to 0.5 J with 30 Hz I opened the areaof stenosis with the laser treating the strictured proximal ureter there was a stone impacted underthe mucosa in this area which needed to be lasered to free it up I could see fragments preop and then after doing this I inspected the area there were no further stones the area was wide open and I wa s easily able to pass the ureteroscope up into the kidney. Having completed the laser treatment of the proximal ureteral impacted calculus and stricture of the ureter I passed the flexible ureteroscope up into the kidney and methodically entered each calyx, there were no stones in the upper or mid pole calyces but in the lower pole there were several stones measuring 2 to 6 mm. Using the laser fiber I broke the stones into tiny fragments no larger than 50 ??m. I inspected allof the calyces again to make sure there were no other stones. I did not see any stones large enoughto cause obstruction. The stones were radiolucent and yellowish in nature consistent with likely uric acid stones. At this point I slowly withdrew the ureteroscope down the ureter with the access sheath the ureter was intact and there were no significant stones in the ureter the area of the dilated/laser treated stricture was open. Because of the dilation and laser of the stricture I decided to leave a 7 Irish stent I passed thecystoscope over the remaining guidewire after removing the flexible scope and sheath and passed the7 Irish stent over that wire up into the kidney under fluoroscopic guidance I remove the wire and confirmed proximal coil of the stent in the kidney with fluoroscopy and distal coil in the bladder with cystoscopy. Patient's bladder was emptied and he was awakened and discharged recovery room, there were no complications Findings: As above Complications: None; patient tolerated the procedure well. Disposition: PACU - hemodynamically stable. Condition: stable * Kriss Razo RN - 03/22/2025 8:10 AM EST [facility] HOME IS NICOLE HIS SON [phone] documented in this encounter Plan of Treatment Not on file documented as of this encounter Goals Goal Patient Goal Type Associated Problems Recent Progress Patient-Stated? Author Autogenerat ed Goal Care Plan Autogenerated Problem No Santy Espinal documented as of this encounter Procedures Procedure Name Priority Date/Time Associated Diagnosis Comments XR UROGRAM RETROGRADE Routine 03/22/2025 10:34 AM EST Pain OH CYSTO W URETEROSCOPY/PYELO SCOPY W LITHOTRIPSY INCL INDWELLING URTRL STNT 03/22/2025 9:50 AM EST Calculus of ureter Case Notes C-ARM, HOLMIUM, LAUNDRY CLERK documented in this encounter Results * XR Urogram Retrograde (03/22/2025 10:34 AM EST) Anatomical Region Laterality Modality Body Radio Fluoroscop y 03/22/2025 12:5 4 PM EST Impressions 03/22/2025 12:55 PM EST Imaging assistance provided during a urologic procedure -------- FINAL REPORT -------- Dictated By: Reddy Poon Dictated Date: 03/22/2025 12:54 ET Assigned Physician: Reddy Poon Reviewed and Electronically Signed By: Reddy Poon Signed Date: 03/22/2025 12:55 ET Workstation ID: [id number] Transcribed By: Self Edit Transcribed Date: 03/22/2025 12:54 ET Narrative 03/22/2025 12:55 PM EST EXAMINATION: Imaging assistance provided during a procedure CLINICAL INFORMATION: Pain COMPARISON: None. TECHNIQUE: UROLOGIC-Imaging assistance was provided during a urologic procedure FINDINGS: Images are not labeled left or right. A wire and device project over the region of the proximal ureter and intrarenal collecting system. Total dose area product : 2.3539 Gycm2 Fluoroscopy time: 21.1 seconds Procedure Note Reddy Poon MD - 03/22/2025 EXAMINATION: Imaging assistance provided during a procedure CLINICAL INFORMATION: Pain COMPARISON: None. TECHNIQUE: UROLOGIC-Imaging assistance was provided during a urologic procedure FINDINGS: Images are not labeled left or right. A wire and device project over the region of the proximal ureter andintrarenal collecting system. Total dose area product : 2.3539 Gycm2 Fluoroscopy time: 21.1 seconds IMPRESSION: Imaging assistance provided during a urologic procedure -------- FINAL REPORT -------- Dictated By: Reddy Poon Dictated Date: 03/22/2025 12:54 ET Assigned Physician: Reddy Poon Reviewed and Electronically Signed By: Reddy Poon Signed Date: 03/22/2025 12:55 ET Workstation ID: [id number] Transcribed By: Self Edit Transcribed Date: 03/22/2025 12:54 ET Chato Falcon MD [facility] FLUOROSCOPY PROCEDURES Final Result documented in this encounter Visit Diagnoses Diagnosis Pain Generalized pain documented in this encounter Historical Medications * This list may reflect changes made after this encounter. cefpodoxime (VANTIN) 200 mg tablet Take 1 tablet (200 mg total) by mouth 2 (two) times a day. for 5 days 03/16/2025 tamsulosin (FLOMAX) 0.4 mg 24 hr capsule Take 1 capsule (0.4 mg total) by mouth 1 (one) time each day. for 14 days valsartan-hydroCH LOROthiazide (DIOVAN-HCT) 80-12.5 mg per tablet Take 1 tablet by mouth 1 (one) time each day. 02/16/2025 oxyBUTYnin (DITROPAN) 5 mg tablet Take 1 tablet (5 mg total) by mouth 3 times daily as needed. 02/26/2025 atorvastatin (LIPITOR) 20 mg tablet Take 1 tablet (20 mg total) by mouth at bedtime. 01/11/2025 added in this encounter Active and Recently Administered Medications Due to Daylight Saving Time, this section may contain times in both EDT and EST. Scheduled Medication Order 03/20/2025 03/21/2025 03/22/2025 ceFAZolin (ANCEF) 2 g in sterile water 20 mL IV syringe (COMPLETED) 2 g, intravenous, Administer over 3 Minutes, Once, On Sat03/22/25 at 0945, For 1 dose, Preprocedure, Indication: Urinary Tract/Genitourinary 1005 (New Bag - Prov ider: Ridge Lindo, JUVENILE JUSTICE OFFICER) PRN Medication Order 03/20/2025 03/21/2025 03/22/2025 iopamidoL (ISOVUE-300) 300 mg iodine /mL (61 %) solution (CANCELED) As needed, Starting on Sat03/22/25 at 1010, Intraprocedure 1010 (Given - Provid er: Chato Falcon MD) documented in this encounter Orders Medications Ordered That Epifanio ht Not Have Been Administered Count Last Ordered Date First Ordered Date ceFAZolin (ANCEF) 2 g in loida rile water 20 mL IV syringe 1 03/22/2025 diphenhydrAMINE (BENADRYL) i njection 12.5 mg 1 03/22/2025 fentaNYL (PF) (SUBLIMAZE) injection 50 mcg 1 03/22/2025 haloperidol lactate (HALDOL) injection 1 mg 1 03/22/2025 HYDROmorphone (DILAUDID) injection 0.5 mg 1 03/22/2025 iopamidoL (ISOVUE-300) 300 m g iodine /mL (61 %) solution 1 03/22/2025 lactated Ringer's infusion 1 03/22/2025 oxyCODONE (ROXICODONE) immed iate release tablet 5 mg 1 03/22/2025 Discharge Count Last Ordered Date First Orde red Date DISCHARGE PATIENT 1 03/22/2025 documented in this encounter Additional Health Concerns Active Problems Noted Date Diagnosed Date Autogenerated Problem 03/23/2025 documented as of this encounter Care Teams Regional Property Manager Relationship Specialty Start Date End Date Yovany Caballero MD [address] [place] [phone] PCP - General Internal Medicine 04/02/18 documented as of this encounter
--- OUTSIDE RECORDS SUMMARY | 2025-03-22 09:30 | XMS_ITS | Encounter Summary ---
Author Organization [facility] Address [address] [place] [address] Care Team Providers Care Top Screw Name Role Phone Yovany Caballero MD Primary Care Provider [phone] Reason for Visit * Auth/Cert (Routine) Specialty Diagnoses / Procedures Referred By Du alicea Referred To Contact Diagnoses Calculus of ureter Calculus of ureter Procedures GA CYSTO W URETEROSCOPY/PYELOSCOPY W LITHOTRIPSY INCL INDWELLING URTRL STNT CYSTOSCOPY LEFT URETEROSCOPY, LASER LITHOTRIPSY, STENT Chato Falcon MD [address] [place] [phone] Phone: tel: fax: [facility] OR [address] [place] [phone] Phone: tel: Referral ID Status Reason Start Date Expiration Date Visits Re quested Visits Authorized [id number] 1 1 Encounter Details Date Type Department Care Team (Late st Contact Info) Description 03/22/2025 9:30 AM EST - 03/22/2025 11:[address] [facility] [place] [address] [place] [phone] Chato Falcon MD [address] [place] [phone] CYSTOSCOPY LEFT URETEROSCOPY, LASER LITHOTRIPSY, STENT [50295 (CPT )] Surgery Details Date/Time Status Location OR Service Patient Class Case Cl ass Case Type Trauma Case? 03/22/2025 9:30 AM Posted [facility] - [facility]ive Panel 1 Procedure LRB Anes Op Region Wound Class Comments CYSTOSCOPY LEFT URETEROSCOPY, LASER LITHOTRIPSY, STENT Left general Class II/ Brown an Contaminated Surgeon Surgeon Role Service Panel Chato Falcon MD Primary Urology 1 Case Notes C-ARM, HOLMIUM, ARCHITECTURAL MODEL MAKER documented in this encounter Social History Tobacco Use Types Packs/Day Years [...] Sign Reading Time Taken Comments Blood Pressure 99/62 03/22/2025 11:00 AM EST Pulse 74 03/22/2025 11:00 AM EST Temperature 37 C (98.6 F) 03/22/2025 10:45 AM EST Respiratory Rate 12 03/22/2025 11:00 AM EST Oxygen Saturation 98% 03/22/2025 11:00 AM EST Inhaled Oxygen Concentration - - Weight 109 kg (240 lb) 03/16/2025 11:00 AM EDT Height 172.7 cm (5' 8 ) 03/16/2025 11:00 AM EDT Body Mass Index 36.49 03/16/2025 11:00 AM EDT documented in this encounter Discharge Instructions * Attachments The following attachments cannot be sent through Care Everywhere. * General Anesthesia (Palestinian) * Laser Lithotripsy: Post op (Palestinian) * Ureteral Stent Placement: Post op (Palestinian) documented in this encounter Medications at Time [...] STENT (L) OPERATIVE NOTE Date: 03/22/2025 Location: [facility] OR Name: Nicole Jade, : 1975, Diagnosis Pre-op Diagnosis * Calculus of ureter [N20.1] Post-op Diagnosis * Calculus of ureter [N20.1] Procedures CYSTOSCOPY LEFT URETEROSCOPY, LASER LITHOTRIPSY, STENT [address] - [place] CYSTO W URETEROSCOPY/PYELOSCOPY W LITHOTRIPSY INCL INDWELLING URTRL STNT Additional Procedures: Laser of proximal left ureteral stricture and stone in addition to treating/lasering the left renal stones and changing the left ureteral stent Indications: Nicole Jade is an 49 y.o. male who is having surgery for Calculus of ureter /kidney. Surgeon(s) & Director Of Archives(s) * Chato Falcon MD - Primary Anesthesia: general ASA: ASA status not filed in the log. Estimated Blood Loss: None Drains: * No LDAs found * Specimen: None Procedure Details: Patient was placed on the operating table in the dorsolithotomy position, groin and genitalia were prepped and draped in usual manner for cystoscopy. 21 Afghan cystoscope was passed per urethra into the [...] fluoroscopic guidance. At this point a 12-14 Afghan 36 cm ureteral access sheath was placed [...] stricture I decided to leave a 7 Afghan stent I passed thecystoscope over the remaining guidewire after removing the flexible scope and sheath and passed the7 Afghan stent over that wire up into the [...] EST [facility] NICOLE HIS SON [phone] documented in this encounter Plan of Treatment Not on file documented as of this encounter Goals Goal Patient Goal Type Associated Problems Recent Progress Patient-Stated? Author Autogenerat ed Goal Care Plan Autogenerated Problem No Nathan Espinalan documented as of this encounter Procedures Procedure Name Priority Date/Time Associated Diagnosis Comments XR UROGRAM RETROGRADE Routine 03/22/2025 10:34 AM EST Pain GA CYSTO W URETEROSCOPY/PYELO SCOPY W LITHOTRIPSY INCL INDWELLING URTRL STNT 03/22/2025 9:50 AM EST Calculus of ureter Case Notes C-ARM, HOLMIUM, ARCHITECTURAL MODEL MAKER documented in this encounter Results * XR [...] Signed Date: 03/22/2025 12:55 ET Workstation ID: [id number] Transcribed By: Self Edit Transcribed Date: 03/22/2025 [...] Signed Date: 03/22/2025 12:55 ET Workstation ID: [id number] Transcribed By: Self Edit Transcribed Date: 03/22/2025 12:54 ET Chato Falcon MD [facility] FLUOROSCOPY PROCEDURES Final Result documented in this encounter Visit Diagnoses Diagnosis Pain Generalized pain Calculus of ureter documented in this encounter Administered Medications Inactive Administered Medications - up to 3 most recent administrations Medication Order MAR Action Action Date Dose Rate Site iopamidoL (ISOVUE-300) 300 mg iodine /mL (61 %) solution As needed, Starting on 03/22/25 at 1010, Intraprocedure Given 03/22/2025 10:10 AM EST 50 mL documented in this encounter Historical Medications * [...] 1005 (New Bag - Prov ider: Ridge Lindo CRNA) PRN Medication Order 03/20/2025 03/21/2025 03/22/2025 iopamidoL [...] HYDROmorphone (DILAUDID) injection 0.5 mg 1 03/22/2025 lactated Ringer's infusion 1 03/22/2025 oxyCODONE (ROXICODONE) immed iate release tablet 5 mg 1 03/22/2025 Discharge Count Last Ordered Date First Orde red Date DISCHARGE PATIENT 1 03/22/2025 documented in this encounter Additional Health Concerns Active Problems Noted Date Diagnosed Date Autogenerated Problem 03/23/2025 documented as of this encounter Care Teams Top Screw Relationship Specialty Start Date End Date Yovany Caballero MD [address] [place] [address] PCP - General Internal Medicine 04/02/18 documented as of this encounter
--- OUTSIDE RECORDS SUMMARY | 2025-03-22 09:51 | XMS_ITS | Encounter Summary ---
Author Organization [facility] Address [id number] [place] [id number] Care Team Providers Care Charge Master Analyst Name Role Phone Yovany Caballero MD Primary Care Provider Reason for Visit * Auth/Cert (Routine) Specialty Diagnoses / Procedures Referred By Du alicea Referred To Contact Diagnoses Calculus of ureter Calculus of ureter Procedures SD CYSTO W URETEROSCOPY/PYELOSCOPY W LITHOTRIPSY INCL INDWELLING URTRL STNT CYSTOSCOPY LEFT URETEROSCOPY, LASER LITHOTRIPSY, STENT Chato Falcon MD [address] [place] [address] Phone: tel: fax: [address] [address] Phone: tel: Referral ID Status Reason Start Date Expiration Date Visits Re quested Visits Authorized [id number] 1 1 Encounter Details Date Type Department Care Team (Late st Contact Info) Description 03/22/2025 9:51 AM EST Anesthesia Event [address] [id number] Junaid Flynn MD [address] [place] [id number] Ridge Lindo CRNA [address] [place] [id number] Anesthesia Record Procedure Summary Procedure Name Responsible Anesthesiologist Anesthesia Start Time Anesthesia Stop Time CYSTOSCOPY LEFT URETEROSCOPY, LASER LITHOTRIPSY, STENT (Left) Junaid Flynn MD 03/22/25 0951 03/22/25 1048 Events Date Time Event Comment 03/22/2025 0950 In Room 0951 An Start 0951 An Start Data The patient wa s reevaluated immediately before moderate or deep sedation use and before anesthesia induction. 0957 An Induction 0958 An Intubation 1007 Anesthesia Ready 1010 Proc Start 1035 An Extubation 1035 Proc Fin 1036 an stop data 1042 Out of Room 1042 Transport to PACU/ICU Patien t reassessed and ready for transfer, airway stable. Patient transport to designated recovery area. {Transport to PACU/ICU:[id number]} 1044 Handoff to RN I completed my handoff to the receiving nurse during which we: 1. Identified the patient 2. Identified the responsible provider 3. Reviewed the pertinent medical history 4. Discussed the surgical course 5. Reviewed intra-op anesthesia management and issues during anesthesia 6. Set expectations for post-procedure period 7. Allowed opportunity for questions and acknowledgement of understanding. 1048 An Stop Meds Name Total propofol (DIPRIVAN) injection 10 mg/mL 3 00 mg fentaNYL (SUBLIMAZE) injection 200 mcg ondansetron 2 mg/mL 4 mg midazolam (VERSED) injection 1 mg/mL 2 m g lidocaine PF (XYLOCAINE-MPF) local injec tion 2% 100 mg dexamethasone (DECADRON) injection 4 mg/ mL 4 mg ceFAZolin (ANCEF) 2 g in sterile water 2 0 mL IV syringe 2 g phenylephrine 1 mg/10 mL (100 mcg/mL) in 0.9% NaCl IV syringe 100 mcg lactated Ringer's infusion 800 mL * Agents Name O2 N2O Air Sevoflurane Inspired Sevoflurane * Blood No blood administrations on file. Lines, Drains, and Airways Type Details Placement Removal Peripheral IV Placement Date: 08/11; Placement Time: 817; Catheter Size: 20 G; Orientation: Posterior, Right; Location: Hand; Site Prep: Chlorhexidine; Insertion Attempts: 1; Patient Tolerance: Tolerated well; Removal Date: 03/22/25; Removal Time: 1218 03/22/25 0818 by Kriss Razo RN 03/22/25 1218 by Sheeba Calderon RN LMA 03/22/25; 09 (randy bassett via procedure documentation); 5; 03/22/25; 1035 03/22/25 0958 by Ridge Lindo CRNA 03/22/25 1035 by Ridge Lindo CRNA documented in this encounter Social History Tobacco [...] on file documented as of this encounter Progress Notes * Ridge Lindo CRNA - 03/22/2025 10:48 AM EST Patient: Ifeanyi Jade Procedure Summary Date: 03/22/25 Room / Location: [facility] OR / [facility] OR Anesthesia Start: 950 Anesthesia Stop: 1047 Procedure: CYSTOSCOPY LEFT URETEROSCOPY, LASER LITHOTRIPSY, STENT (Left) Diagnosis: Calculus of ureter (Calculus of ureter) Surgeons: Chato Falcon MD Responsible Provider: Junaid Flynn MD Anesthesia Type: general ASA Status: 3 Anesthesia Plan: general Last Vitals: Vitals Value Taken Time BP 99/62 03/22/25 10:48 Temp 98.6 03/22/25 10:48 Pulse 74 03/22/25 10:48 Resp 14 03/22/25 10:48 SpO2 96 03/22/25 10:48 No data recorded Anesthesia Post Evaluation Patient location during evaluation: PACU Patient participation: complete - patient participated Level of consciousness: awake Pain score: 0 Pain management: adequate Airway patency: patent Anesthetic complications: no Cardiovascular status: acceptable Respiratory status: acceptable Hydration status: acceptable Nausea: No Vomiting: No There were no known notable events for this encounter. * Ridge Lindo CRNA - 03/22/2025 10:11 AM EST Relevant Problems No relevant active problems Clinical information reviewed: Tobacco Allergies Meds Med Hx Surg Hx Fam Hx Soc Hx Anesthesia Plan ASA 3 Anesthesia Evaluation PONV RISK SCORE: 2 Vitals: 03/16/25 1100 03/22/25 0759 BP: 131/65 Pulse: 80 Resp: 16 Temp: 36.8 ??C (98.3 ??F) SpO2: 96% Weight: 109 kg (240 lb) Height: 1.727 m (68 ) SpO2 Readings from Last 1 Encounters: 03/22/25 96% No results found for: WBC , RBC , HGB , HCT , PLT , MCV Allergies[1] STOP BANG: STOP-Bang Total Score: 6 (03/22/2025 8:06 AM) NPO Status: Time of Last Liquid: 1929 Time of Last Solid: 1929 [1] Allergies Allergen Reactions Tramadol Anaphylaxis and Shortness of breath Other reaction(s): SOB Other reaction(s): Chest Pain * Ridge Lindo CRNA - 03/22/2025 10:10 AM ESTAssociated Order(s): Intubation General Information and Staff Patient location during procedure: OR Performed by: Ridge Lindo CRNA Authorized by: Junaid Flynn MD Intubation Airway not difficult Reason: elective Final Airway Details Ventilation between attempts: none LMA Size: 5 LMA Type: LMA Seal Pressure: Final airway type: LMA Indications and Patient Condition Indications for airway management: anesthesia Sedation level: Yes Preoxygenated: yesSoft Tissue Damage: No Dentition Unchanged: Yes Patient position: neutral MILS maintained throughout Mask difficulty assessment: 0 - not attempted Start Time: 03/22/2025 9:58 AMStop Time: 03/22/2025 9:58 AM documented in this encounter Plan of Treatment Not on file documented as of this encounter Goals Goal Patient Goal Type Associated Problems Recent Progress Patient-Stated? Author Autogenerat ed Goal Care Plan Autogenerated Problem No Santy Espinal documented as of this encounter Procedures Procedure Name Priority Date/Time Associated Diagnosis Comments TH AN LMA(NO CHARGE) Routine 03/22/2025 10:10 AM EST documented in this encounter Results * TH AN LMA(NO CHARGE) (03/22/2025 10:10 AM EST) Ridge Alejandro CRNA - 03/22/2025 10:10 AM EST Ridge Lindo CRNA 03/22/2025 10:11 AM General Information and Staff Patient location during procedure: OR Performed by: Ridge Lindo CRNA Authorized by: Junaid Flynn MD Intubation Airway not difficult Reason: elective Final Airway Details Ventilation between attempts: none LMA Size: 5 LMA Type: LMA Seal Pressure: Final airway type: LMA Indications and Patient Condition Indications for airway management: anesthesia Sedation level: Yes Preoxygenated: yesSoft Tissue Damage: No Dentition Unchanged: Yes Patient position: neutral MILS maintained throughout Mask difficulty assessment: 0 - not attempted Start Time: 03/22/2025 9:58 AMStop Time: 03/22/2025 9:58 AM us Junaid Flynn MD ANESTHESIA ORDERABLES Final Re sult documented in this encounter Visit Diagnoses Not on filedocumented in this encounter Administered Medications Inactive Administered Medications - up to 3 most recent administrations Medication Order MAR Action Action Date Dose Rate Site ceFAZolin (ANCEF) 2 g in sterile water 20 mL IV syringe 2 g, intravenous, Administer over 3 Minutes, Once, On Sat03/22/25 at 0945, For 1 dose, Preprocedure, Indication: Urinary Tract/Genitourinary New Bag 03/22/2025 10:05 AM EST 2 g dexAMETHasone (DECADRON) injection intravenous, As needed, Starting on Sat03/22/25 at 0957, Anesthesia Intraprocedure Given 03/22/2025 9:57 AM EST 4 mg fentaNYL (PF) (SUBLIMAZE) injection intravenous, As needed, Starting on Sat03/22/25 at 0957, Anesthesia Intraprocedure Given 03/22/2025 10:20 AM EST 50 mcg Given 03/22/2025 10:15 AM EST 50 mcg Given 03/22/2025 9:57 AM EST 100 mcg lactated Ringer's infusion intravenous, Continuous PRN, Starting on Sat03/22/25 at 0802, Anesthesia Intraprocedure New Bag 03/22/2025 9:45 AM EST 100 m L/hr lidocaine (PF) (XYLOCAINE-MPF) 2 % injection injection, As needed, Starting on Sat03/22/25 at 0957, Anesthesia Intraprocedure Given 03/22/2025 9:57 AM EST 100 mg midazolam (VERSED) injection intravenous, As needed, Starting on Sat03/22/25 at 0948, Anesthesia Intraprocedure Given 03/22/2025 9:48 AM EST 2 mg ondansetron (PF) (ZOFRAN) injection intravenous, As needed, Starting on Sat03/22/25 at 0957, Anesthesia Intraprocedure Given 03/22/2025 9:57 AM EST 4 mg phenylephrine (OLVIN-SYNEPHRINE) injection intravenous, As needed, Starting on Sat03/22/25 at 1029, Anesthesia Intraprocedure Given 03/22/2025 10:29 AM EST 100 mcg propofoL (DIPRIVAN) injection intravenous, As needed, Starting on Sat03/22/25 at 0957, Anesthesia Intraprocedure Given 03/22/2025 9:57 AM EST 300 mg documented in this encounter Additional Health Concerns Active Problems Noted Date Diagnosed Date Autogenerated Problem 03/23/2025 documented as of this encounter Care Teams Charge Master Analyst Relationship Specialty Start Date End Date Yovany Caballero MD [address] [place] [address] PCP - General Internal Medicine 04/02/18 documented as of this encounter
--- OUTSIDE RECORDS SUMMARY | 2025-03-26 10:20 | XMS_ITS | Encounter Summary ---
Author Organization [employer] Address [address] [place] [address] Care Team Providers Care Assistant Brand Manager Name Role Phone Name, Toni TREADWELL Primary Care Provider [phone] Reason for Visit * Reason Comments sick visit Encounter Details Date Type Department Care Team ([facility] st Contact Info) Description 03/26/2025 10:20 AM EST Office Visit [facility] [address] [place] [address] Dysuria Social History Tobacco Use Types Packs/Day Years [...] Sign Reading Time Taken Comments Blood Pressure 151/101 03/26/2025 10:40 AM EST Pulse 74 03/26/2025 10:40 AM EST Temperature 36.7 C (98.1 F) 03/26/2025 10:40 AM EST Respiratory Rate 20 03/26/2025 10:40 AM EST Oxygen Saturation 99% 03/26/2025 10:40 AM EST Inhaled Oxygen Concentration - - Weight 107 kg (234 lb 12.8 oz) 03/26/2025 10:40 AM EST Height 172.7 cm (5' 8 ) 03/26/2025 10:40 AM EST Body Mass Index 35.7 03/26/2025 10:40 AM EST documented in this encounter Plan of Treatment Upcoming Encounters Date Type Department Care Team (Late st Contact Info) Description 03/30/2025 9:00 AM EST Medication Management [facility] [address] [place] [phone] Skylar Mortensen, PharmD [address] [place] [phone] 04/07/2025 9:00 AM EST Office Visit [facility] [address] [place] [address] Traci Juan [address] [place] [address] 05/04/2025 10:00 AM EST Office Visit [address] [address] Name, MD Toni [address] [place] [address] Scheduled Orders Name Type Priority Associated Diagnoses Orde r Schedule Culture, Urine, Routine Microbiology Routine Dysuria Ordered: 03/26/2025 documented as of this encounter Procedures Procedure Name Priority Date/Time Associated Diagnosis Comments POCT URINALYSIS DIPSTICK Routine 03/26/2025 10:48 AM EST Dysuria documented in this encounter Results * (ABNORMAL) POCT Urinalysis (03/26/2025 10:48 AM EST) Color, UA Yellow Clarity, UA Clear Glucose, UA Negative Bilirubin, UA Negative Ketones, UA Negative Spec Grav, UA 1.015 Blood, UA Positive(A) Negative, None Detected Comment:large pH, UA 6.0 Protein, UA Trace Urobilinogen, UA 0.2 Leukocytes, UA Trace Negative, Rare, Trace Nitrite, UA Negative Negative, None Detected Appearance, UA yellow Urine (Urine, Random) 03/26/2025 10:48 AM EST [facility] POINT OF CARE TEST ENTER/EDIT ORDERABLES Final Result documented in this encounter Visit Diagnoses Diagnosis Dysuria documented in this encounter Care Teams Assistant Brand Manager Relationship Specialty Start Date End Date Name, [place] [address] PCP - General Family Medicine 07/11/21 documented as of this encounter
--- OUTSIDE RECORDS SUMMARY | 2025-03-26 17:59 | XMS_ITS | Clinical Summary ---
Author Organization [employer] Address [address] [place] [address] 7[address] [place] [address] Care Team Providers Care Ms Sql Dba Name Role Phone Name, Toni TREADWELL Primary Care Provider [phone] Allergies Active Allergy Reactions Criticality Noted Date [...] and at bedtime (urinary discomfort) . Active amoxicillin-clavulan ate (Augmentin) 875-125 MG tabletIndications:Dy suria Take 1 tablet by mouth 2 times daily for 7 days. 14 tablet 2024 Active omega-3 (Fish Oil) 1000 MG capsuleIndications:P ure hyperglyceridemia TAKE 1 CAPSULE BY MOUTH EVERY MORNING 90 capsule 3 024 2024 Discontinued(M ed list cleanup (will not trigger notification to Pharmacy)) pyridoxine (Vitamin B-6) 50 MG tablet Take 50 mg by mouth in the morning. 2024 Discontinued(M ed list cleanup (will not trigger notification to Pharmacy)) celecoxib (CeleBREX) 200 MG capsule TAKE 1 CAPSULE BY MOUTH TWICE A DAY 60 capsule 2024 Discontinued(M ed list cleanup (will not trigger notification to Pharmacy)) cefpodoxime (Vantin) 200 MG tablet Take 1 tablet by mouth 2 times daily. 2024 Discontinued(R eorder (will not trigger notification to Pharmacy)) Flomax 0.4 MG 24 hr capsule Take 1 capsule by mouth Once per day. 2024 cefpodoxime (Vantin) 200 MG tablet Take 1 tablet (200 mg) by mouth 2 times daily for 5 days. 10 tablet 2024 Active Problems Problem Noted Date Diagnosed [...] 07/02/2022 Overview (08/23/2023): right thyroid lobectomy at [facility] 10/2021, he was found to have small 1.3cm encapsulated PTC with negative margins and negative lymph nodes. Surgery is considered curative and the plan is that he will follow with [facility] to check the TSH (low range TSH was recommended to his endocrine surgeon) History of lobectomy of thyroid 07/02/2022 Overview (08/23/2023): right thyroid lobectomy at [facility] 10/2021, he was found to have small 1.3cm encapsulated PTC with negative margins and negative lymph nodes. Surgery is considered curative and the plan is that he will follow with [facility] to check the TSH [...] to pain management He then presented to [facility] from 05/01 until 05/04 for left [...] Encounters Date Type Department Care Team Description 03/26/2025 10:20 AM EST Office Visit [facility] [address] [place] [address] Dysuria 03/26/2025 Telephone [facility] [address] [place] [address] Toni Watts MD Medication Question 03/26/2025 Travel 03/19/2025 8:45 AM EDT Office Visit [facility] [address] [place] [address] Breanne Waddell Periapical abscess without sinus (Primary Dx) 03/16/2025 2:00 PM EDT Office Visit [address] [address] Toni Watts MD Renal stones (Primary Dx); Dysuria; Bacteremia due to Escherichia coli 03/16/2025 Travel 03/15/[address] [address] Ab[place] Irene [place] Chart Prep 03/11/2025 Patient Outreach [address] [address] Toni Watts MD Transition Of Care (Tcm) (HDF- Unscheduled LVM) 03/04/[address] [address] Toni Watts MD Change PCP 03/02/2025 10:30 AM EDT Telemedicine [address] [address] Karoline Carrero, YANETH Primary hypertension 03/02/2025 Travel 03/01/2025 Patient Outreach [facility] [address] [place] [phone] Toni Watts MD Transition Of Care (Tcm) (HDF scheduled. ) 02/16/2025 10:15 AM EDT Office Visit [address] [address] Toni Watts MD Primary hypertension (Primary Dx); CASTILLO (obstructive sleep apnea); Vaccine refused by patient 02/16/2025 Travel 02/08/2025 Patient Outreach [facility] [address] [place] [address] Toni Watts MD Pre-visit Planning (SDOH negative, Tobacco screening negative. ) 01/11/2025 Results Follow-Up [address] [address] Toni Watts MD TSH W/Reflex to FT4, Comprehensive Metabolic Panel, Lipid Panel, Standard 12/25/2024 9:30 AM EDT Clinical Support [facility] [address] [place] [address] Celestina Garcia, RN Primary hypertension (Primary Dx); History of lobectomy of thyroid; Screening for cholesterol level 12/25/2024 Telephone [facility] [address] [place] [address] Toni Watts MD 12/25/2024 Travel from Last 3 Months Immunizations Immunization Administration Dates Next Due Pfizer Covid-19 Vaccine 12+ 10/09/2020, Td (adult), 5 Lf tetanus tox oid, [...] Mass Index 35.7 03/26/2025 10:40 AM EST Plan of Treatment Upcoming Encounters Date Type Department Care Team (Late st Contact Info) Description 03/30/2025 9:00 AM EST Medication Management [facility] [address] [place] [phone] Skylar Mortensen, PharmD [address] [place] [phone] 04/07/2025 9:00 AM EST Office Visit [facility] [address] [place] [address] Traci Juan [address] [place] [phone] 05/04/2025 10:00 AM EST Office Visit [facility] [address] [place] [phone] Name, MD Toni [address] [place] [address] Health Maintenance Due Date Last Done Comments CT Colonography 1973 Colonoscopy 1973 Colorectal Cancer Screening 1973 FIT DNA/Cologuard 1973 FIT 1973 FOBT 1973 HIV Screening 1973 Sigmoidoscopy 1973 Disability Screening 1973 Alcohol/Substance Use Screening 1985 Family Planning (PISQ) 1988 Hepatitis C Screening 09/05/1991 Hepatitis B Vaccines (1 of 3 - 19+ 3-dose series) 1992 Pneumococcal Vaccine: 50+ Years (1 of 1 - PCV) 09/05/2023 Zoster Vaccines (1 of 2) 09/05/2023 Depression Screening 03/12/2024 03/12/2023, 03/12/20 COVID-19 Vaccine ( season) 2025 10/30/2020, 10/09/2020, 07/30/2020 Influenza Vaccine (#1) 2025 Dental Oral Exam 09/17/2025 03/19/2025, 11/26/2022 Dental Prophylaxis 09/17/2025 03/19/2025, 0 07/18/2023, 11/26/2022 Dental X-Ray: Full Mouth 11/27/2025 11/26/2022 SDOH Screening 02/08/2026 02/08/2025 Dental X-Ray: Bitewings 03/20/2026 03/19/20 25, 09/26/2023, 11/26/2022 Tobacco Screening 03/26/2026 03/26/2025 Lipid Panel 01/09/2030 01/09/2025, 04/0 09/2023, 07/02/2022, [...] DIPSTICK Routine 03/26/2025 10:48 AM EST Dysuria PERIODIC ORAL EVALUATION - ESTABLISHED PATIENT Routine 03/19/2025 8:45 AM EDT CASE PRESENTATION, DETAILED AND EXTENSIVE TREATMENT PLANNING Routine 03/19/2025 8:45 AM EDT INTRAORAL - PERIAPICAL EACH ADDITIONAL RADIOGRAPHIC IMAGE Routine 03/19/2025 8:45 AM EDT INTRAORAL - PERIAPICAL FIRST RADIOGRAPHIC IMAGE Routine 03/19/2025 8:45 AM EDT BITEWINGS - 4 RADIOGRAPHIC IMAGES Routine 03/19/2025 8:45 AM EDT PROPHYLAXIS - ADULT Routine 03/19/2025 8 :45 AM EDT 24 DENTAL IMPLANT Routine 03/19/2025 12: 00 AM EDT 24 IMPLANT SUPPORTED CROWN - PORCELAIN FUSED TO TITANIUM AND TITANIUM ALLOYS Routine 03/19/2025 12:00 AM EDT URINALYSIS, COMPLETE, WITH REFLEX TO CULTURE Routine 03/16/2025 2:38 PM EDT Dysuria POCT URINALYSIS DIPSTICK Routine 03/16/2025 2:35 PM EDT Dysuria CULTURE, URINE, ROUTINE Routine 03/16/2025 12:00 AM EDT LIPID PANEL, STANDARD Routine 01/09/2025 9:12 AM EDT Screening for cholesterol level COMPREHENSIVE METABOLIC PANEL Routine 01/09/2025 9:12 AM EDT Screening for cholesterol level TSH W/REFLEX TO FT4 Routine 01/09/2025 9 :12 AM EDT History of lobectomy of thyroid INTRAORAL - COMPLETE SERIES OF RADIOGRAPHIC IMAGES Routine 11/26/2022 9:00 AM EDT Encounter for dental examination from Last 3 Months or Most Recently Relevant to Health Maintenance Results * (ABNORMAL) POCT Urinalysis (03/26/2025 10:48 AM EST) Only the most recent of2 resultswithin the time period is included. Color, UA Yellow Clarity, UA Clear Glucose, UA Negative Bilirubin, UA Negative Ketones, UA Negative Spec Grav, UA 1.015 Blood, UA Positive(A) Negative, None Detected Comment:large pH, UA 6.0 Protein, UA Trace Urobilinogen, UA 0.2 Leukocytes, UA Trace Negative, Rare, Trace Nitrite, UA Negative Negative, None Detected Appearance, UA yellow Urine (Urine, Random) 03/26/2025 10:48 AM EST [facility] POINT OF CARE TEST ENTER/EDIT ORDERABLES Final Result * (ABNORMAL) Urinalysis, Complete, with Reflex to Culture (03/16/2025 2:38 PM EDT) Color Urine Yellow [facility] Appearance Urine Clear [facility] PH 5.5 5.0 - 9.0 [facility] Glucose Urine UA Negative Negative mg/dL [facility] Urine Blood Large (3+)(A) Negative [facility] Specific [place] - Urine 1.010 1.005 - 1.025 [facility] Urine Protein Negative Neg-Trace mg/dL [facility] Urine Ketones Negative Negative mg/dL [facility] Nitrite Urine Negative Negative [facility] Leukocyte Esterase Urine Small (1+)(A) Negative [facility] RBC Urine 6-10(A) 0 - 2 /HPF [facility] Urine WBC 0-5 0 - 5 /HPF [facility] Urine Squamous Epithelial Cell 0-2 0 - 2 /HPF [facility] Urine Bacteria None Seen None Seen [facility] Hyaline Casts, Urine 0-2 0 - 2 /LPF [facility] Urine 03/16/2025 2:3 8 PM EDT 03/16/2025 6:39 PM EDT [facility] - 03/16/2025 9:25 PM EDT Urine, Clean Catch us Toni Watts MD LAB URINE ORDERABLES Final Resul t Performing Organization Address [facility] Co de Phone Number [facility] [address] [place] [phone] * Culture, Urine, Routine (03/16/2025 12:00 AM EDT) Urine Urine specimen obtained by clean catch procedure / Unknown 03/16/2025 03/16/2025 Comment:UACC [facility] - 03/18/2025 10:47 AM EDT Urine Culture No growth. Specimen Source: Urine clean catch us Toni Watts MD LAB MICROBIOLOGY - GENERAL ORDER PADMINI Final Result Performing Organization Address [facility] Phone Number [facility] [address] [place] [phone] * TSH W/Reflex to FT4 (01/09/2025 9:12 AM EDT) TSH reflex Free T4 1.75 0.32 - 4.0 uIU/mL [facility] Blood Venous blood specimen / Unknown 01/09/2025 9:12 AM EDT 01/09/2025 9:12 AM EDT us Toni Watts MD LAB BLOOD ORDERABLES Final Resul t Performing Organization Address [facility] Co de Phone Number [facility] [address] [place] [phone] * (ABNORMAL) Lipid Panel, Standard (01/09/2025 9:12 AM EDT) Triglycerides 456(H) <150 mg/dL [facility] Comment:Desirable Triglyceri de: less than 150 mg/dLBorderline High Triglyceride 150-199 mg/dLHigh Triglyceride: 200-499 mg/dLVery High Triglyceride: greater than or equal to 5OO mg/dL Cholesterol 175 <200 mg/dL [facility] Comment:Desirable Cholestero l: less than 200 mg/dLBorderline High Cholesterol: 200-239 mg/dLHigh Cholesterol: greater than 239 mg/dL LDL Cholesterol Calculated TNP <100 mg/dL [facility] Comment:Unable to calculate the LDL. The formula of Friedwald,Keen, and Viktor is only valid if the triglycerides areless than 400 mg/dl. HDL Cholesterol 29(L) >40 mg/dL [facility] Comment:Desirable HDL: great er than 40 mg/dL Note: This HDL assay may give artificially low results in patients with liver disease. Blood Venous blood specimen / Unknown 01/09/2025 9:12 AM EDT 01/09/2025 9:12 AM EDT us Toni Watts MD LAB BLOOD ORDERABLES Final Resul t [facility] [address] [place] [phone] * (ABNORMAL) Comprehensive Metabolic Panel (01/09/2025 9:12 AM EDT) Sodium 141 135 - 145 mmol/L [facility] Potassium 4.5 3.3 - 5.1 mmol/L [facility] Chloride 106 96 - 108 mmol/L [facility] Carbon Dioxide 26 22 - 29 mmol/L [facility] Anion Gap 14 12 - 20 [facility] Urea Nitrogen (BUN) 9 9 - 16 mg/dL [facility] Creatinine, Serum 0.93 0.5 - 1.4 mg/dL [facility] Estimated Glomerular Filt Rate >60 [facility] Comment:Chronic Kidney Disea se: Estimated GFR < 60 mL/min/[id number] Kidney Disease: Estimated GFR < 15 mL/min/1.73m2 Glucose 102 60 - 115 mg/dL [facility] Calcium 9.1 8.4 - 10.2 mg/dL [facility] Bilirubin, Total 0.6 0.0 - 1.0 mg/dL [facility] Aspartate Amino Transferase 46(H) 5 - 37 U/L [facility] Alanine Aminotransferase 35 0 - 40 U/L [facility] Total Protein 8.6(H) 6.5 - 8.0 g/dL [facility] Albumin Level 4.1 3.5 - 5.0 g/dL [facility] Alkaline Phosphatase 101 39 - 117 U/L [facility] Blood Venous blood specimen / Unknown 01/09/2025 9:12 AM EDT 01/09/2025 9:12 AM EDT us Toni Watts MD LAB BLOOD ORDERABLES Final Resul t [facility] [address] [place] [phone] from Last 3 Months Insurance [facility] C3 [facility] HMO [place] STAND ADULT Care Teams Ms Sql Dba Relationship Specialty Start Date End Date Name, MD Toni [address] [place] [phone] PCP - General Family Medicine 07/11/21
--- OUTSIDE RECORDS SUMMARY | 2025-03-26 17:59 | XMS_ITS | Encounter Summary ---
Author Organization [employer] Address [address] [place] [address] Street [address] [place] [address] Care Team Providers Care Safety Leader Name Role Phone Name, Toni TREADWELL Primary Care Provider [phone] Encounter Details Date Type Department Care Team (Latest Contact Info) Description 03/26/2025 Travel Social History Tobacco Use Types Packs/Day [...] Description 03/30/2025 9:00 AM EST Medication Management [facility] [address] [place] [address] Skylar Mortensen, PharmD [address] [place] [phone] 04/07/2025 9:00 AM EST Office Visit [facility] [address] [place] [address] Traci Juan [address] [place] [phone] 05/04/2025 10:00 AM EST Office Visit [facility] [address] [place] [phone] Toni Watts MD [address] [place] [phone] documented as of this encounter Visit Diagnoses Not on filedocumented in this encounter Care Teams Safety Leader Relationship Specialty Start Date End Date NameToni MD [address] [place] [phone] PCP - General Family Medicine 07/11/21 documented as of this encounter
--- OUTSIDE RECORDS SUMMARY | 2025-03-26 17:59 | XMS_ITS | Encounter Summary ---
Author Organization [employer] Address [address] [place] [address] [address] [place] [address] Care Team Providers Care It Desktop Support Specialist Name Role Phone Name, Toni TREADWELL Primary Care Provider [phone] Reason for Visit * Reason Onset Date Comments ED Follow Up 04/26/2023 Encounter Details Date Type Department Care Team (Late st Contact Info) Description 04/26/[address] [facility] [address] [place] [address] Name, MD Toni [address] [place] [address] ED Follow Up Social History Tobacco Use [...] No answer. LVM to call back on [phone]. * Telephone Encounter - Tone Rodríguez - 04/26/2023 10:45 AM EST Patient calling to report ED visit on : Date: 04/25/23 Hospital: [facility] Seen for: Back Pain and Kidney Stones Patient advised will forward to team nurse for follow up documented in this encounter Plan of Treatment Upcoming Encounters Date Type Department Care Team (Late st Contact Info) Description 03/30/2025 9:00 AM EST Medication Management [facility] [address] [place] [address] Skylar Mortensen, PharmD [address] [place] [address] 04/07/2025 9:00 AM EST Office Visit [facility] [address] [place] [address] Traci Juan [address] [place] [address] 05/04/2025 10:00 AM EST Office Visit [facility] [address] [place] [address] Name, MD Toni [address] [place] [address] documented as of this encounter Visit Diagnoses Not on filedocumented in this encounter Care Teams It Desktop Support Specialist Relationship Specialty Start Date End Date Name, MD Toni [address] [place] [phone] PCP - General Family Medicine 07/11/21 documented as of this encounter
--- OUTSIDE RECORDS SUMMARY | 2025-03-26 17:59 | XMS_ITS | Encounter Summary ---
Author Organization [facility] Address [address] [place] [address] Care Team Providers Care Erosion Control Coordinator Name Role Phone Yovany Caballero MD Primary Care Provider [phone] Encounter Details Date Type Department Care Team (Late st Contact Info) Description 03/12/2025 Lab Requisition [facility] [address] [facility] [place] [address] Robin Cooney MD [address] [place], [place] [phone] Urinary tract infection, site not specified Social [...] as of this encounter Plan of Treatment Not on [...] reflex microscopic (03/12/2025 2:28 PM EDT) Specific [place] Urine 1.029 1.003 - 1.030 LAB URINALYSIS - AUTOMATED METHOD 03/12/2025 7:07 PM [facility] pH, Urine 6.0 5.0 - 8.0 pH LAB URINALYSIS - AUTOMATED METHOD 03/12/2025 7:07 PM [facility] Leukocytes, Urine Small(A) Negative LAB URINALYSIS - AUTOMATED METHOD 03/12/2025 7:07 PM [facility] Nitrite, Urine Negative Negative LAB URINALYSIS - AUTOMATED METHOD 03/12/2025 7:07 PM [facility] Protein, Urine 30(A) <=Trace mg/dL LAB URINALYSIS - AUTOMATED METHOD 03/12/2025 7:07 PM [facility] Glucose, Urine Negative Negative mg/dL LAB URINALYSIS - AUTOMATED METHOD 03/12/2025 7:07 PM [facility] Ketones, Urine Trace(A) Negative mg/dL LAB URINALYSIS - AUTOMATED METHOD 03/12/2025 7:07 PM [facility] Urobilinogen , Urine 0.2 0.2 - 1.0 mg/dL LAB URINALYSIS - AUTOMATED METHOD 03/12/2025 7:07 PM [facility] Bilirubin, Urine Negative Negative LAB URINALYSIS - AUTOMATED METHOD 03/12/2025 7:07 PM [facility] Blood, Urine Large(A) Negative LAB URINALYSIS - AUTOMATED METHOD 03/12/2025 7:07 PM [facility] RBC, Urine 238.4(H) 0 - 4 /HPF LAB URINALYSIS - AUTOMATED METHOD 03/12/2025 7:07 PM [facility] WBC, Urine 14.1(H) 0 - 4 /HPF LAB URINALYSIS - AUTOMATED METHOD 03/12/2025 7:07 PM EDT [facility] Squamous Epithelial, Urine 68(H) 0 - 60 /LPF LAB URINALYSIS - AUTOMATED METHOD 03/12/2025 7:07 PM EDT [facility] Crystals, Urine Moderate Calcium Oxalate crystals. /LPF LAB URINALYSIS - AUTOMATED METHOD 03/12/2025 7:07 PM EDT [facility] Bacteria, Urine Few(A) Negative /HPF LAB URINALYSIS - AUTOMATED METHOD 03/12/2025 7:07 PM EDT [facility] Hyaline Casts, Urine 1.2 0 - 3 /LPF LAB URINALYSIS - AUTOMATED METHOD 03/12/2025 7:07 PM [facility] Mucus, Urine Small None /HPF LAB URINALYSIS - AUTOMATED METHOD 03/12/2025 7:07 PM EDT [facility] Urine Urine specimen obtained by clean catch procedure / Unknown 03/12/2025 2:28 PM EDT 03/12/2025 5:47 PM EDT us Robin Cooney MD LAB URINE ORDERABLES Final Resul t Performing Organization Address [facility]/ZIP Co de Phone Number [facility] [address] [place] [address], [place] [phone] * Culture urine (03/12/2025 2:28 PM EDT) Culture, Urine No growth 03/13/2025 11:45 AM EDT [facility] Urine Urine specimen obtained by clean catch procedure / Unknown 03/12/2025 2:28 PM EDT 03/12/2025 5:47 PM EDT us Robin Cooney MD LAB MICROBIOLOGY - GENERAL ORDER PADMINI Final Result [facility] [address] [place] [address], documented in this encounter Visit Diagnoses Diagnosis Urinary tract infection, site not specified documented in this encounter Additional Health Concerns Active Problems Noted Date Diagnosed Date Autogenerated Problem 03/23/2025 documented as of this encounter Care Teams Erosion Control Coordinator Relationship Specialty Start Date End Date Yovany Caballero MD [address] [facility] [address] [place] [address] PCP - General Internal Medicine 04/02/18 documented as of this encounter
--- OUTSIDE RECORDS SUMMARY | 2025-03-26 17:59 | XMS_ITS | Clinical Summary ---
Author Organization [facility] Address [address] [place] [phone] Phone Care Team Providers Care Artificial Stone Setter Name Role Phone Yovany Caballero MD Primary Care Provider [phone] Allergies Active Allergy Reactions Criticality Noted Date [...] time each day. for 14 days Active cefpodoxime (VANTIN) 200 mg tablet Take 1 tablet (200 mg total) by mouth 2 (two) times a day. for 5 days 03/16/2025 Active Encounters Date Type Department Care Team Description 03/22/2025 9:51 AM EST Anesthesia Event [facility] OR [address] [place] [phone] Junaid Flynn MD Steele, Matthew G, LINDA 03/22/2025 9:30 AM EST - 03/22/2025 11:00 AM EST Surgery [facility] Main OR [address] [place] [address] Chato Falcon MD CYSTOSCOPY LEFT URETEROSCOPY, LASER LITHOTRIPSY, STENT [15151 (CPT )] 03/22/2025 7:48 AM EST - 03/22/2025 12:22 PM EST Hospital Encounter [facility] OR [address] [place] [phone] Chato Falcon MD Pain Discharge Disposition: Home or Self Care 03/12/2025 Lab Requisition [facility] Lab [address] [facility] [place] [address] Robin Cooney MD Urinary tract infection, site not specified from Last 3 Months Surgical History Surgery Date Site/Laterality Comments KIDNEY STONE SURGERY THYROID SURGERY Medical History Medical History Date Comments [...] 03/16/2025 11:00 AM EDT Plan of Treatment Health Maintenance Due Date Last Done Comments Colorectal Cancer Screening: Colonoscopy 1973 Hepatitis B Vaccines (1 of 3 - 19+ 3-dose series) 1992 Pneumococcal Vaccine: 50+ Years (1 of 2 - PCV) 1992 Zoster Vaccines (1 of 2) 1992 HIV Screening 04/28/2022 Hepatitis C Screening 04/28/2022 Social Influencers of Health Screening 04/28/2022 Depression Screening 05/20/2024 COVID-19 Vaccine ( - 2024- season) 2025 10/30/2020, 10/09/2020, 07/30/2020 Influenza Vaccine [...] Care Plan Autogenerated Problem No [employer] Implanted Type Area Claims Consultant Device Identifier Shelf Expiration Date Model / Serial / Lot Stent Uret [id number] Contr Percuflex Hydroplus - Sna - [id number] Implanted:Qty: 1 on 03/22/2025 by Chato Falcon MD at [facility] Stents Left: Ureter [employer]GYN[employer]OLG Y 12/08/2027 [id number] / NA / [id number] Procedures Procedure Name Priority Date/Time Associated Diagnosis Comments XR UROGRAM RETROGRADE Routine 03/22/2025 10:34 AM EST Pain TH AN LMA(NO CHARGE) Routine 03/22/2025 10:10 AM EST NE CYSTO W URETEROSCOPY/PYELO SCOPY W LITHOTRIPSY INCL INDWELLING URTRL STNT 03/22/2025 9:50 AM EST Calculus of ureter Case Notes C-ARM, [place], HEAD OF ART URINALYSIS WITH REFLEX MICROSCOPIC Routine 03/12/2025 2:28 PM EDT Urinary tract infection, site not specified URINALYSIS WITH REFLEX MICROSCOPIC Routine 03/12/2025 2:28 PM EDT Urinary tract infection, site not specified CULTURE URINE Routine 03/12/2025 2:28 PM EDT Urinary tract infection, site not specified from Last 3 Months Results * XR Urogram Retrograde (03/22/2025 10:34 [...] Signed Date: 03/22/2025 12:55 ET Workstation ID: [id number] Transcribed By: Self Edit Transcribed Date: 03/22/2025 [...] Signed Date: 03/22/2025 12:55 ET Workstation ID: [id number] Transcribed By: Self Edit Transcribed Date: 03/22/2025 12:54 ET Chato Falcon MD IM FLUOROSCOPY PROCEDURES Final Result * TH AN LMA(NO CHARGE) (03/22/2025 10:10 [...] Flynn MD ANESTHESIA ORDERABLES Final Re sult * (ABNORMAL) Urinalysis with reflex microscopic (03/12/2025 2:28 PM EDT) Specific [place] Urine 1.029 1.003 - 1.030 LAB URINALYSIS - AUTOMATED METHOD 03/12/2025 7:07 PM [facility] pH, Urine 6.0 5.0 - 8.0 pH LAB URINALYSIS - AUTOMATED METHOD 03/12/2025 7:07 PM [facility] Leukocytes, Urine Small(A) Negative LAB URINALYSIS - AUTOMATED METHOD 03/12/2025 7:07 PM [facility] Nitrite, Urine Negative Negative LAB URINALYSIS - AUTOMATED METHOD 03/12/2025 7:07 PM [facility] Protein, Urine 30(A) <=Trace mg/dL LAB URINALYSIS - AUTOMATED METHOD 03/12/2025 7:07 PM [facility] Glucose, Urine Negative Negative mg/dL LAB URINALYSIS - AUTOMATED METHOD 03/12/2025 7:07 PM [facility] Ketones, Urine Trace(A) Negative mg/dL LAB URINALYSIS - AUTOMATED METHOD 03/12/2025 7:07 PM [facility] Urobilinogen , Urine 0.2 0.2 - 1.0 mg/dL LAB URINALYSIS - AUTOMATED METHOD 03/12/2025 7:07 PM [facility] Bilirubin, Urine Negative Negative LAB URINALYSIS - AUTOMATED METHOD 03/12/2025 7:07 PM EDT [facility] Blood, Urine Large(A) Negative LAB URINALYSIS - AUTOMATED METHOD 03/12/2025 7:07 PM [facility] RBC, Urine 238.4(H) 0 - 4 /HPF LAB URINALYSIS - AUTOMATED METHOD 03/12/2025 7:07 PM [facility] WBC, Urine 14.1(H) 0 - 4 /HPF LAB URINALYSIS - AUTOMATED METHOD 03/12/2025 7:07 PM [facility] Squamous Epithelial, Urine 68(H) 0 - 60 /LPF LAB URINALYSIS - AUTOMATED METHOD 03/12/2025 7:07 PM [facility] Crystals, Urine Moderate Calcium Oxalate crystals. /LPF LAB URINALYSIS - AUTOMATED METHOD 03/12/2025 7:07 PM [facility] Bacteria, Urine Few(A) Negative /HPF LAB URINALYSIS - AUTOMATED METHOD 03/12/2025 7:07 PM [facility] Hyaline Casts, Urine 1.2 0 - 3 /LPF LAB URINALYSIS - AUTOMATED METHOD 03/12/2025 7:07 PM [facility] Mucus, Urine Small None /HPF LAB URINALYSIS - AUTOMATED METHOD 03/12/2025 7:07 PM [facility] Urine Urine specimen obtained by clean catch procedure / Unknown 03/12/2025 2:28 PM EDT 03/12/2025 5:47 PM EDT us oRbin Cooney MD LAB URINE ORDERABLES Final Resul t [facility] [address] [place] [address], * Culture urine (03/12/2025 2:28 PM EDT) Culture, Urine No growth 03/13/2025 11:45 AM EDT [facility] Urine Urine specimen obtained by clean catch procedure / Unknown 03/12/2025 2:28 PM EDT 03/12/2025 5:47 PM EDT us Robin Cooney MD LAB MICROBIOLOGY - GENERAL ORDER PADMINI Final Result [facility] [address] [place] [address], from Last 3 Months Additional Health Concerns Active Problems Noted Date Diagnosed Date Autogenerated Problem 03/23/2025 Insurance [facility] MEDICAID ADVANTAGE [address] [place] [address] Care Teams Artificial Stone Setter Relationship Specialty Start Date End Date Yovany Caballero MD [address] [facility] [address] [place] [address] PCP - General Internal Medicine 04/02/18
--- OUTSIDE RECORDS SUMMARY | 2025-03-26 17:59 | XMS_ITS | Encounter Summary ---
Author Organization [employer] Address [address] [place] [address] Care Team Providers Care Barrel Lathe Operator Inside Name Role Phone Name, Toni TREADWELL Primary Care Provider [phone] Reason for Visit * Reason Onset Date Comments Medication Question 03/26/2025 Encounter Details Date Type Department Care Team ([facility] st Contact Info) Description 03/26/2025 Telephone [facility] [address] [place] [phone] Name, MD Toni [address] [place] [address] Medication Question Social History Tobacco Use Types Packs/Day Years [...] encounter Miscellaneous Notes * Telephone Encounter - Leslie Flores RN - 03/26/2025 11:27 AM EST Per provider request, called [facility] Dr. Falcon's office to reports pt has dysuriax2 day, blood in UA otherwise negative, culture pending. Asking for call back if pt should be treated empirically, if so, which antibiotics as pt had lithotripsy and procedural stent on 03/22/25. Gavecallback [phone]. documented in this encounter Plan of Treatment Upcoming Encounters Date Type Department Care Team (Late st Contact Info) Description 03/30/2025 9:00 AM EST Medication Management [facility] [address] [place] [phone] Skylar Mortensen, PharmD [address] [place] [address] 04/07/2025 9:00 AM EST Office Visit [facility] ADULT D[facility]AL [address] [place] [address] Traci Juan [address] [place] [address] 05/04/2025 10:00 AM EST Office Visit [facility] [address] [place] [address] Name, MD Toni [address] [place] [address] documented as of this encounter Visit Diagnoses Not on filedocumented in this encounter Care Teams Barrel Lathe Operator Inside Relationship Specialty Start Date End Date Name, MD Toni [address] [place] [address] PCP - General Family Medicine 07/11/21 documented as of this encounter
--- OUTSIDE RECORDS SUMMARY | 2025-03-26 17:59 | XMS_ITS | Encounter Summary ---
Author Organization [employer] Address [address] [place] [address] 7 [place] [address] Care Team Providers Care Neonatal Nurse Practitioner Name Role Phone Name, Toni TREADWELL Primary Care Provider [phone] Encounter Details Date Type Department Care Team (Late st Contact Info) Description 11/28/2024 Orders Only [facility] MED & PEDS [address] [place] [address] Jace Frederick MD [address] [place] [address] Social History Tobacco Use Types Packs/Day Years [...] Description 03/30/2025 9:00 AM EST Medication Management [address] [address] Skylar Mortensen, PharmD [address] [place] [address] 04/07/2025 9:00 AM EST Office Visit [facility] ADULT DENTAL [address] [place] [address] Traci Juan [address] [place] [phone] 05/04/2025 10:00 AM EST Office Visit [address] [address] Name, MD Toni [address] [place] [phone] documented as of this encounter Procedures Procedure Name Priority Date/Time Associated Diagnosis Comments CULTURE, URINE, ROUTINE Routine 03/16/2025 12:00 AM EDT documented in this encounter Results * Culture, Urine, Routine (03/16/2025 12:00 AM EDT) Urine Urine specimen obtained by clean catch procedure / Unknown 03/16/2025 03/16/2025 Comment:[facility] - 03/18/2025 10:47 AM EDT Urine Culture No growth. Specimen Source: Urine clean catch us Toni Watts MD LAB MICROBIOLOGY - GENERAL ORDER PADMINI Final Result [facility] [address] [place] [phone] [phone] documented in this encounter Visit Diagnoses Not on filedocumented in this encounter Care Teams Neonatal Nurse Practitioner Relationship Specialty Start Date End Date Name, MD Toni [address] [place] [phone] PCP - General Family Medicine 07/11/21 documented as of this encounter
== END 2025-03-26 17:57 | disposition home or self-care (01) ==
LOC: HO.HHCLNP 17:56
PROVIDERS: Visit Provider Registered Nurse
DX: R30.0 Dysuria (principal)
CPT/HCPCS: 87086

== ENCOUNTER 2025-05-04 13:49 | Outpatient (REF) | payer MEDICAID, SELFPAY ==
--- OUTSIDE RECORDS SUMMARY | 2025-05-03 08:00 | XMS_ITS | Encounter Summary ---
Author Organization [employer] Address [address] [place] [address] 7 [place] [address] Care Team Providers Care Facility Environmental Technician Name Role Phone Name, Toni TREADWELL Primary Care Provider [phone] Reason for Visit * Reason Comments root canal #3 Encounter Details Date Type Department Care Team (Late st Contact Info) Description 05/03/2025 8:00 AM EST Office Visit [facility] ADULT D[facility]AL [address] [place] [address] KandruArmandol, DDS [address] [place] [address] Periapical abscess without sinus (Primary Dx) Social History Tobacco Use Types Packs/Day Years [...] Sign Reading Time Taken Comments Blood Pressure 134/74 05/03/2025 9:19 AM EST Pulse - - Temperature - - Respiratory Rate - - Oxygen Saturation - - Inhaled Oxygen Concentration - - Weight - - Height - - Body Mass Index - - documented in this encounter Progress Notes * Thang Roblero DDS - 05/03/2025 8:00 AM EST Patient is here for a retreat rct # 3 He complaints of pain from that tooth On exam # 14 has crown Rct consent taken and time out taken. Rubber dam placed Access made, found 3 canal Removed as much simon percha I can from all 3 canals Naocl irrigation and dried the canals Ca(oh)2 placed Cotton pellet and IRM placed. POI given Nv: Finish rct # 3 documented in this encounter Plan of Treatment Upcoming Encounters Date Type Department Care Team (Late st Contact Info) Description 05/10/2025 9:30 AM EST Office Visit [facility] CH[facility] ADULT DENTAL [address] [place] [address] Thang Roblero DDS [address] [place] [address] 05/11/2025 9:30 AM EST Medication Management [facility] [address] [place] [address] Skylar Mortensen, Lanie [address] [place] [address] 06/16/2025 3:00 PM EST Office Visit [facility] ADULT DENTAL [address] [place] [address] Timothy Cedeño [address] [place] [address] documented as of this encounter Procedures Procedure Name Priority Date/Time Associated Diagnosis Comments 3 LIMITED ORAL EVALUATION - PROBLEM FOCUSED Routine 05/03/2025 8:00 AM EST documented in this encounter Visit Diagnoses Diagnosis Periapical abscess without sinus- Primary documented in this encounter Care Teams Facility Environmental Technician Relationship Specialty Start Date End Date Name, MD Toni [address] [place] [phone] PCP - General Family Medicine 07/11/21 documented as of this encounter
--- NOTE | ~2025-05-04 | XR_ITS ---
EXAMINATION: XR CERVICAL SPINE CLINICAL INFORMATION: right upper trapezius strain with right radiculopathy and neck pain COMPARISON: None available. TECHNIQUE: 5 views of the cervical spine, inclusive of bilateral oblique views, were obtained. FINDINGS: There is a normal cervical lordosis. There is no significant scoliosis. There is no fracture, compression deformity, or suspicious bone lesion. There is no subluxation. Alignment is anatomic in the sagittal plane. The C1-2 articulation and craniocervical junction are intact and aligned. Normal facet alignment. There are mild to moderate degenerative disc changes present at C4-5, C5-6, and C6-7. Oblique views demonstrate no significant bony neural foraminal narrowing on either side. There is no prevertebral soft tissue swelling or soft tissue abnormality. Image Lung apices are clear. XR/XR cervical spine 4V IMPRESSION: 1. There is no acute bony or soft tissue abnormality of the cervical spine. 2. There is mild spondylosis most significant C4-C7. Electronically signed by: Pio Mccurdy MD 05/04/2025 03:48 PM EST SILVIO
--- OUTSIDE RECORDS SUMMARY | 2025-05-04 13:20 | XMS_ITS | Encounter Summary ---
Author Organization [employer] Address [address] [place] [address] [place] [address] Care Team Providers Care Engineering Specialist Technician Name Role Phone Name, Toni TREADWELL Primary Care Provider [phone] Reason for Referral * Consultation (Routine) - Closed Specialty Diagnoses / Procedures Referred By Contac t Referred To Contact Physical Therapy Diagnoses Trapezius strain, right, initial encounter Neck pain Corinna Kingsley MD [address] [place] [address] Phone: tel: fax: [facility] Physical Therapy [address] [place] [address] Phone: tel: fax: Referral ID Status Reason Start Date Expiration Date V isits Requested Visits Authorized [id number] Closed Specialty Services Required 05/04/2025 05/04/2026 20 20 Reason for Visit * Reason Comments Neck Pain Encounter Details Date Type Department Care Team (Late st Contact Info) Description 05/04/2025 1:20 PM EST Office Visit [facility] [address] [place] [address] [phone] Corinna Kingsley MD [address] [place] [address] [phone] Trapezius strain, right, initial encounter (Primary Dx); Neck pain Social History Tobacco Use Types Packs/Day Years [...] Sign Reading Time Taken Comments Blood Pressure 154/104 05/04/2025 1:16 PM EST Pulse 73 05/04/2025 1:16 PM EST Temperature 35.9 C (96.6 F) 05/04/2025 1:16 PM EST Respiratory Rate 17 05/04/2025 1:16 PM EST Oxygen Saturation 98% 05/04/2025 1:16 PM EST Inhaled Oxygen Concentration - - Weight 108 kg (237 lb 3.2 oz) 05/04/2025 1:16 PM EST Height - - Body Mass Index 36.07 03/26/2025 10:40 AM EST documented in this encounter Patient Instructions * Patient Instructions* Corinna Kingsley MD - 05/04/2025 1:20 PM EST To schedule your physical therapy at [facility] please call [phone]. Para programar schaefer therapia physica m??dica en el [facility] M??dico de [employer], por favor jacqueline al [phone]. documented in this encounter Progress Notes * Corinna Kingsley MD - 05/04/2025 1:20 PM EST Subjective Ifeanyi Jade, age 49 years Upper Back and Neck Pain with Radiation Two weeks prior to the visit, Ifeanyi Jade developed strong pain in the upper back at the bottom ofthe neck while shoveling snow during the first snowstorm. The pain radiates up the back of the headand over to the front, and also extends down the right arm and into the lower back. He reports inability to lift the right shoulder and describes limited range of motion, especially with lateral movements. He notes that the pain worsened since onset. He also describes episodes where the pain radiates down to the lower back and sometimes to the bottom of the legs. He has taken medication this morning for the pain and is monitoring his symptoms. Sleep Apnea Evaluation He reports that his doctor previously suggested evaluation for sleep apnea and that a referral was made in January. He is awaiting scheduling for a sleep study. History of Papillary Thyroid Carcinoma History of papillary thyroid carcinoma, status post thyroid lobectomy in 2021. Cervical Spine Imaging Cervical spine X-ray performed on June 21, 2023, was normal. Objective Blood pressure (!) 154/104, pulse 73, temperature 96.6 ??F (35.9 ??C), temperature source Oral, resp. rate 17, weight 237 lb 3.2 oz (108 kg), SpO2 98%. Ifeanyi Jade 1975 05/04/2025 PHYSICAL EXAM SUMMARY Problem List Problem List[1] Allergies Tramadol Current Medications Current Medications[2] Physical Examination BP (!) 154/104 (BP Location: Left arm, Patient Position: Sitting, BP Cuff Size: Adult) Pulse 73 Temp 96.6 ??F (35.9 ??C) (Oral) Resp 17 Wt 237 lb 3.2 oz (108 kg) SpO2 98% BMI 36.07 kg/m?? Date of last physical exam was 05/04/2025. Physical Exam Musculoskeletal: Comments: - MUSCULOSKELETAL: Restricted cervical range of motion, especially with lateral movements. Spasm of the upper trapezius muscle. Lateral epicondylitis (tennis elbow) noted. Strain of the upper trapezius muscle observed. Sensation intact medial, radial and ulnar. Branch Service Associate strength 5/5 - X-ray of C-spine on June 21, 2023: normal Trapezius strain, right, initial encounter: - Right upper trapezius muscle strain with associated muscle spasm. - Prescribed Flexeril (muscle relaxant). Prescribed high-dose ibuprofen 800 mg, to be taken with food. Prescribed lidocaine cream for topical application. Recommended rest and avoidance of aggravating activities. Referral to physical therapy for rehabilitation and prevention of frozen shoulder. Ordered X-ray of the cervical spine to assess alignment and rule out other pathology. - Risks and side effects: Advised that Flexeril may cause drowsiness and not to drive while taking it. Neck pain: - Cervicalgia likely secondary to right upper trapezius strain. - Ordered X-ray of the cervical spine. Recommended physical therapy to improve range of motion. Provided instructions for medication use as above. Lateral epicondylitis (tennis elbow), right: - Right lateral epicondylitis identified on examination. - Recommended rest and physical therapy as part of overall rehabilitation plan. Polysomnography referral follow-up: - Awaiting polysomnography appointment; referral previously placed. - Provided phone number for sleep center and instructed to call persistently to schedule appointment. Advised of $50 fee for missed appointments. Addendum 05/04/25 5:44 PM IMPRESSION: 1. There is no acute bony or soft tissue abnormality of the cervical spine. 2. There is mild spondylosis most significant C4-C7. This note was drafted using Ambient (AI) technology. 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 Nephrolithiasis CASTILLO (obstructive sleep apnea) Gastroesophageal reflux disease Primary hypertension [2] Current Outpatient Medications: amoxicillin (Amoxil) 500 MG capsule, Take 1 capsule (500 mg) by mouth every 8 (eight) hours for 10 days., Disp: 30 capsule, Rfl: 0 atorvastatin (Lipitor) 20 MG tablet, Take 1 tablet (20 mg) by mouth Once per day., Disp: 30 tablet,Rfl: 11 cyclobenzaprine (Flexeril) 10 MG tablet, One tab po at bedtime prn pain of muscles, do not drive with medicaion, Disp: 30 tablet, Rfl: 0 ibuprofen 400 MG tablet, Take 1 tablet by mouth if needed in the morning, at noon, and at bedtime for moderate pain. Take with food or milk, Disp: , Rfl: ibuprofen 800 MG tablet, Take 1 tablet (800 mg) by mouth every 8 (eight) hours if needed for moderate pain or fever., Disp: 30 tablet, Rfl: 0 Lidocaine 5 % cream, Apply topically bid, Disp: 30 g, Rfl: 3 ondansetron (Zofran) 4 MG tablet, Take 4 mg by mouth every 8 (eight) hours if needed for nausea or vomiting., Disp: , Rfl: oxybutynin (Ditropan) 5 MG tablet, Take 1 tablet by mouth if needed in the morning, at noon, and atbedtime (urinary discomfort)., Disp: , Rfl: pantoprazole (Protonix) 40 MG EC tablet, Take 1 tablet (40 mg) by mouth before breakfast. Do not crush, chew, or split., Disp: 30 tablet, Rfl: 2 valsartan-hydroCHLOROthiazide (Diovan HCT) 80-12.5 MG tablet, Take 1 tablet by mouth Once per day.,Disp: 30 tablet, Rfl: 11 documented in this encounter Plan of Treatment Upcoming Encounters Date Type Department Care Team (Late st Contact Info) Description 05/10/2025 9:30 AM EST Office Visit [facility] ADULT D[facility] [address] [place] [address] Thang Roblero, DDS [address] [place] [address] 05/11/2025 9:30 AM EST Medication Management [facility] MED[facility] [address] [place] [address] Skylar Mortensen, PharmD [address] [place] [address] 06/16/2025 3:00 PM EST Office Visit [facility] [address] [place], [place] [phone] Meghan Cedeñokirk [address] [place], [place] [phone] Scheduled Referrals Name Type Priority Associated Diagnoses Orde r Schedule Referral to Physical Therapy Outpatient Referral Routine Trapezius strain, right, initial encounter Neck pain Expected: 05/04/2025 (Approximate), Expires: 05/04/2026 documented as of this encounter Procedures Procedure Name Priority Date/Time Associated Diagnosis Comments XR CERVICAL SPINE 4V Routine 05/04/2025 2:19 PM EST Trapezius strain, right, initial encounter Neck pain documented in this encounter Results * XR CERVICAL SPINE 4V (05/04/2025 2:19 PM EST) Anatomical Region Laterality Modality Abdomen Radiographic Yue ging 05/04/2025 2:19 PM EST Narrative 05/04/2025 3:51 PM EST [address] [address] XRay Report Signed Patient: Ifeanyi Rooney MR#: [id number] : 1975 Acct:[id number] Age/Sex: 49 / M ADM Date: 05/04/25 Loc: .[facility] Attending Dr: Corinna Kingsley MD Ordering Physician: Corinna Kingsley MD Date of Service: 05/04/25 Procedure(s): XR cervical spine 4V Accession Number(s): [id number] cc: Corinna Kingsley MD; Name,Toni TREADWELL Reason for Exam: right upper trapezius strain with right radiculopathy and neck pain EXAMINATION: XR CERVICAL SPINE CLINICAL INFORMATION: right upper trapezius strain with right radiculopathy and neck pain COMPARISON: None available. TECHNIQUE: 5 views of the cervical spine, inclusive of bilateral oblique views, were obtained. FINDINGS: There is a normal cervical lordosis. There is no significant scoliosis. There is no fracture, compression deformity, or suspicious bone lesion. There is no subluxation. Alignment is anatomic in the sagittal plane. The C1-2 articulation and craniocervical junction are intact and aligned. Normal facet alignment. There are mild to moderate degenerative disc changes present at C4-5, C5-6, and C6-7. Oblique views demonstrate no significant bony neural foraminal narrowing on either side. There is no prevertebral soft tissue swelling or soft tissue abnormality. Image Lung apices are clear. XR/XR cervical spine 4V IMPRESSION: 1. There is no acute bony or soft tissue abnormality of the cervical spine. 2. There is mild spondylosis most significant C4-C7. Electronically signed by: Pio Mccurdy MD 05/04/2025 03:48 PM [facility] Dictated By: iPo Mccurdy MD Signed By: <Electronically signed by Pio Mccurdy MD in OV> 05/04/25 1548 DD/ 1419 TD/TT: 05/04/25 1432 Laborer Prestressed Concrete: Procedure Note Donotuseinterpreter, Image - 05/04/[address] [address] XRay Report Signed Patient: Ifeanyi RooneyMR#: [id number] : 1975Acct:[id number] Age/Sex: 49 / MADM Date: 05/04/25 Loc: [facility] Attending Dr: Corinna Kingsley MD Ordering Physician: Corinna Kingsley MD Date of Service: 05/04/25 Procedure(s): XR cervical spine 4V Accession Number(s): [id number] cc: Corinna Kingsley MD; NameToni MD Reason for Exam: right upper trapezius strain with right radiculopathyand neck pain EXAMINATION: XR CERVICAL SPINE CLINICAL INFORMATION: right upper trapezius strain with right radiculopathy and neck pain COMPARISON: None available. TECHNIQUE: 5 views of the cervical spine, inclusive of bilateral oblique views, were obtained. FINDINGS: There is a normal cervical lordosis. There is no significant scoliosis. There is no fracture, compression deformity, or suspicious bone lesion. There is no subluxation. Alignment is anatomic in the sagittal plane. The C1-2 articulation and craniocervical junction are intact and aligned. Normal facet alignment. There are mild to moderate degenerative disc changes present at C4-5, C5-6, and C6-7. Oblique views demonstrate no significant bony neural foraminal narrowing on either side. There is no prevertebral soft tissue swelling or soft tissue abnormality. Image Lung apices are clear. XR/XR cervical spine 4V IMPRESSION: 1. There is no acute bony or soft tissue abnormality of the cervical spine. 2. There is mild spondylosis most significant C4-C7. Electronically signed by: Pio Mccurdy MD 05/04/2025 03:48 PM [facility] Dictated By: Pio Mccurdy MD Signed By: <Electronically signed by Pio Mccurdy MD in OV> 05/04/25 1548 DD/ 1419 TD/TT: 05/04/25 1432 Laborer [employer]crete: Corinna Kingsley MD IMG XR PROCEDURES Edited R esult - Final documented in this encounter Visit Diagnoses Diagnosis Trapezius strain, right, initial encounter- Primary Neck pain Cervicalgia documented in this encounter Care Teams Engineering Specialist Technician Relationship Specialty Start Date End Date Name, MD Toni [address] [place] [address] PCP - General Family Medicine 07/11/21 documented as of this encounter
--- OUTSIDE RECORDS SUMMARY | 2025-05-04 18:01 | XMS_ITS | Encounter Summary ---
Author Organization [employer] Address [address] [place] [address] 7 [place] [address] Care Team Providers Care Cupboard Builder Name Role Phone Name, Toni TREADWELL Primary Care Provider [phone] Reason for Visit * Reason Onset Date Comments Nurse Triage 05/04/2025 Encounter Details Date Type Department Care Team (Late st Contact Info) Description 05/04/2025 Telephone [facility] [address] [place] [address] Name, MD Toni [address] [place] [address] Nurse Triage Social History Tobacco Use Types Packs/Day Years [...] encounter Miscellaneous Notes * Telephone Encounter - Farzana Herrera RN - 05/04/2025 10:07 AM EST Tc to pt who reports they were shoveling 2 weeks ago where they noticed right arm pain radiating totheir neck, head and back. Pt states the back of their head is an 8/10, middle back is 9/10 and armpain is an 8/10. Pt denies chest pain, shortness of breath and numbness. Pt reports they feel the pain the most when they have to stand up and feels a lump in their back. Pt reports weakness and bilateral ankle swelling that has been going on for some time now. Pt reports they drove to their OV andis capable of driving at this time. Pt is requesting an appointment with their PCP since their lastone was cancelled due to their insurance was inactive at the time. Pt reports their insurance is now active. Marketing Operations Analyst advised PCP does not have an available appointment at this time but offered a sick on site today with Dr. Garcia on the red team for 11:15 am. Pt declined due to being at a OV with a specialist and unsure at what time they will be out. [facility] appointment to be evaluated for their arm pain but if sx worsens prior to call our office back to let us know. Pt reports they will come to the to be evaluated and agreed with plan. Protocol Used: Arm Pain (Adult) Protocol-Based Disposition: Go to Office or Video Visit Now Positive Triage Questions: * Severe pain (e.g., excruciating, unable to do any normal activities) * Weakness (i.e., loss of strength) of new-onset in hand or fingers (Exceptions: Not truly weak, hand feels weak because of pain; weakness present > 2 weeks) * All higher-acuity triage questions were negative. Care Advice Discussed: * Reasons To Call Back - Severe pain lasts over 2 hours after pain medicine - Moderate pain (such as interferes with normal activities) lasts more than 3 days - Mild pain lasts more than 7 days - Arm swelling occurs - Signs of infection occur (such as spreading redness, warmth, fever) - You become worse * Telephone Encounter - Tone Rodríguez - 05/04/2025 9:07 AM EST Symptom: Arm Pain - Not From Injury Outcome: Schedule an urgent appointment (within 1 hour) or talk to a nurse or provider soon Reason: Can't use the arm normally Please contact pt at [phone]. (Ethiopian Speaker) documented in this encounter Plan of Treatment Upcoming Encounters Date Type Department Care Team ([facility] st Contact Info) Description 05/10/2025 9:30 AM EST Office Visit [facility] ADULT D[facility] [address] [place] [address] Thang Roblero, DDS [address] [place] [address] 05/11/2025 9:30 AM EST Medication Management [facility] [address] [place] [address] Skylar Mortensen, PharmD [address] [place] [address] 06/16/2025 3:00 PM EST Office Visit [facility] [address] [place] [address] Timothy Cedeño [address] [place] [address] documented as of this encounter Visit Diagnoses Not on filedocumented in this encounter Care Teams Cupboard Builder Relationship Specialty Start Date End Date Name, MD Toni [address] [place] [address] PCP - General Family Medicine 07/11/21 documented as of this encounter
--- OUTSIDE RECORDS SUMMARY | 2025-05-04 18:01 | XMS_ITS | Encounter Summary ---
Author Organization [employer] Address [address] [place] [address] Care Team Providers Care Food Preservation Scientist Name Role Phone Name, Toni TREADWELL Primary Care Provider [phone] Encounter Details Date Type Department Care Team ([facility] st Contact Info) Description 05/04/2025 Results Follow-Up [facility] [address] [place] [address] Corinna Kingsley MD [address] [place] [address] XR CERVICAL SPINE 4V Social History Tobacco Use Types Packs/Day Years [...] Description 05/10/2025 9:30 AM EST Office Visit [facility] ADULT D[facility]AL [address] [place] [address] Thang Roblero, ERNESTINES [address] [place] [address] 05/11/2025 9:30 AM EST Medication Management [facility] MED[facility] [address] [place] [address] Skylar Mortensen, PharmD [address] [place] [address] 06/16/2025 3:00 PM EST Office Visit [facility] AD[facility] [address] [place] [address] Timothy Cedeño [address] [place] [address] documented as of this encounter Visit Diagnoses Not on filedocumented in this encounter Care Teams Food Preservation Scientist Relationship Specialty Start Date End Date Name, MD Toni [address] [place] [address] PCP - General Family Medicine 07/11/21 documented as of this encounter
--- OUTSIDE RECORDS SUMMARY | 2025-05-04 18:01 | XMS_ITS | Encounter Summary ---
Author Organization [facility] Address [address] [place] [address] Care Team Providers Care Carbon Sequestration Plant Engineer Name Role Phone Yovany Caballero MD Primary Care Provider [phone] Encounter Details Date Type Department Care Team (Late st Contact Info) Description 03/12/2025 Lab Requisition [facility] - Main Lab [address] [facility] [place] [address] Robin Cooney MD [address] [place], [place] [phone] Urinary tract infection, site not specified Social [...] on file documented as of this encounter Procedures Procedure [...] reflex microscopic (03/12/2025 2:28 PM EDT) Specific [place] Urine 1.029 1.003 - 1.030 LAB URINALYSIS - AUTOMATED METHOD 03/12/2025 7:07 PM [facility] pH, Urine 6.0 5.0 - 8.0 pH LAB URINALYSIS - AUTOMATED METHOD 03/12/2025 7:07 PM [facility] Leukocytes, Urine Small(A) Negative LAB URINALYSIS - AUTOMATED METHOD 03/12/2025 7:07 PM [facility] Nitrite, Urine Negative Negative LAB URINALYSIS - AUTOMATED METHOD 03/12/2025 7:07 PM [facility] Protein, Urine 30(A) <=Trace mg/dL LAB URINALYSIS - AUTOMATED METHOD 03/12/2025 7:07 PM [facility] Glucose, Urine Negative Negative mg/dL LAB URINALYSIS - AUTOMATED METHOD 03/12/2025 7:07 PM [facility] Ketones, Urine Trace(A) Negative mg/dL LAB URINALYSIS - AUTOMATED METHOD 03/12/2025 7:07 PM [facility] Urobilinogen , Urine 0.2 0.2 - 1.0 mg/dL LAB URINALYSIS - AUTOMATED METHOD 03/12/2025 7:07 PM [facility] Bilirubin, Urine Negative Negative LAB URINALYSIS - AUTOMATED METHOD 03/12/2025 7:07 PM [facility] Blood, Urine Large(A) Negative LAB URINALYSIS - AUTOMATED METHOD 03/12/2025 7:07 PM [facility] RBC, Urine 238.4(H) 0 - 4 /HPF LAB URINALYSIS - AUTOMATED METHOD 03/12/2025 7:07 PM [facility] WBC, Urine 14.1(H) 0 - 4 /HPF LAB URINALYSIS - AUTOMATED METHOD 03/12/2025 7:07 PM EDT [facility] Squamous Epithelial, Urine 68(H) 0 - 60 /LPF LAB URINALYSIS - AUTOMATED METHOD 03/12/2025 7:07 PM EDT [facility] Crystals, Urine Moderate Calcium Oxalate crystals. /LPF LAB URINALYSIS - AUTOMATED METHOD [facility] Bacteria, Urine Few(A) Negative /HPF LAB URINALYSIS - AUTOMATED METHOD 03/12/2025 7:07 PM EDT [facility] Hyaline Casts, Urine 1.2 0 - 3 /LPF LAB URINALYSIS - AUTOMATED METHOD 03/12/2025 7:[facility] Mucus, Urine Small None /HPF LAB URINALYSIS - AUTOMATED METHOD 03/12/2025 7:07 PM [facility] Urine Urine specimen obtained by clean catch procedure / Unknown 03/12/2025 2:28 PM EDT 03/12/2025 5:47 PM EDT us Robin Cooney MD LAB URINE ORDERABLES Final Resul t [facility] [address] [place] [address], [place] [phone] * Culture urine (03/12/2025 2:28 PM EDT) Culture, Urine No growth 03/13/2025 11:45 AM EDT [facility] Urine Urine specimen obtained by clean catch procedure / Unknown 03/12/2025 2:28 PM EDT 03/12/2025 5:47 PM EDT us Robin Cooney MD LAB MICROBIOLOGY - GENERAL ORDER PADMINI Final Result Performing Organization Address [facility]/ZIP Co de Phone Number [facility] [address] [place] [address], [place] [phone] documented in this encounter Visit Diagnoses Diagnosis Urinary tract infection, site not specified documented in this encounter Care Teams Carbon Sequestration Plant Engineer Relationship Specialty Start Date End Date Yovany Caballero MD [address] [place] [address] PCP - General Internal Medicine 04/02/18 documented as of this encounter
--- OUTSIDE RECORDS SUMMARY | 2025-05-04 18:01 | XMS_ITS | Encounter Summary ---
Author Organization [employer] Address [address] [place] [address] 7 [place] [address] Care Team Providers Care Supervisor Machining Name Role Phone Name, Toni TREADWELL Primary Care Provider [phone] Reason for Visit * Reason Onset Date Comments Appointment Request 05/03/2025 Encounter Details Date Type Department Care Team ([facility] st Contact Info) Description 05/03/2025 Telephone [facility] [address] [place] [address] Name, MD Toni [address] [place] [address] Appointment Request Social History Tobacco Use Types Packs/Day Years [...] encounter Miscellaneous Notes * Telephone Encounter - Toni Chávez - 05/03/2025 1:51 PM EST Tc from pt requesting to r/s apt with PCP due to pt insurance being active again. Contact pt at [phone] documented in this encounter Plan of Treatment Upcoming Encounters Date Type Department Care Team (Late st Contact Info) Description 05/10/2025 9:30 AM EST Office Visit [facility] [address] [place] [address] Kanu, Thang, DDS [address] [place] [address] 05/11/2025 9:30 AM EST Medication Management [facility] MED[facility] [address] [place] [address] Skylar Mortensen, PharmD [address] [place] [address] 06/16/2025 3:00 PM EST Office Visit [facility] AD[facility] [address] [place] [address] Timothy Cedeño [address] [place] [address] documented as of this encounter Visit Diagnoses Not on filedocumented in this encounter Care Teams Supervisor Machining Relationship Specialty Start Date End Date Name, MD Toni [address] [place] [address] PCP - General Family Medicine 07/11/21 documented as of this encounter
--- OUTSIDE RECORDS SUMMARY | 2025-05-04 18:01 | XMS_ITS | Encounter Summary ---
Author Organization [email or web address] Address [address] [place] [address] 7[address] [place] [address] Care Team Providers Care Warranty Manager Name Role Phone Name, Toni TREADWELL Primary Care Provider [phone] Reason for Visit * Reason Onset Date Comments ED Follow Up 04/26/2023 Encounter Details Date Type Department Care Team (Late st Contact Info) Description 04/26/2023 Telephone [facility] [address] [place] [address] Name, MD Toni [address] [place] [address] ED Follow Up Social History Tobacco Use [...] encounter Miscellaneous Notes * Telephone Encounter - rByce Patel RN - 04/26/2023 2:47 PM EST Return T/C x 1 pm for status check and to schedule ED follow up, No answer. LVM to call back on [phone]. * Telephone Encounter - Tone Rodríguez - 04/26/2023 10:45 AM EST Patient calling to report ED visit on : Date: 04/25/23 Hospital: [facility] Seen for: Back Pain and Kidney Stones Patient advised will forward to team nurse for follow up documented in this encounter Plan of Treatment Upcoming Encounters Date Type Department Care Team (Late st Contact Info) Description 05/10/2025 9:30 AM EST Office Visit [facility] ADULT [facility] [address] [place] [address] Thang Roblero DDS [address] [place] [address] 05/11/2025 9:30 AM EST Medication Management [facility] [address] [place] [address] Skylar Mortensen, PharmD [address] [place] [address] 06/16/2025 3:00 PM EST Office Visit [facility] [address] [place] [address] Timothy Cedeño [address] [place] [address] documented as of this encounter Visit Diagnoses Not on filedocumented in this encounter Care Teams Warranty Manager Relationship Specialty Start Date End Date Name, MD Toni [address] [place] [address] PCP - General Family Medicine 07/11/21 documented as of this encounter
--- OUTSIDE RECORDS SUMMARY | 2025-05-04 18:01 | XMS_ITS | Clinical Summary ---
Author Organization [facility] Address [address] [place] [phone] Phone Care Team Providers Care Store Person Name Role Phone Yovany Caballero MD Primary Care Provider [phone] Allergies Active Allergy Reactions Criticality Noted Date [...] 03/22/2025 9:51 AM EST Anesthesia Event [facility] OR [address] [place] [phone] Junaid Flynn MD Steele, Matthew G, LINDA 03/22/2025 9:30 AM EST - 03/22/2025 11:00 AM EST Surgery [facility] Main OR [address] [place] [address] Chato Falcon MD CYSTOSCOPY LEFT URETEROSCOPY, LASER LITHOTRIPSY, STENT [07391 (CPT )] 03/22/2025 7:48 AM EST - 03/22/2025 12:22 PM EST Hospital Encounter [facility] OR [address] [place] [phone] Chato Falcon MD Pain Discharge Disposition: Home or Self Care 03/12/2025 Lab Requisition [facility] [address] [facility] [employer] [place] [address] Robin Cooney MD Urinary tract [...] on file Sexual Orientation Not on file Last Filed Vital Signs Vital Sign Reading [...] Screening 04/28/2022 Depression Screening 05/20/2024 COVID-19 Vaccine (2024- season) 2025 10/30/2020, 10/09/2020, 07/30/2020 Influenza Vaccine [...] on patient's age to complete this topic Medical Devices Implanted Type Area Sheet Metal Production Worker Device Identifier Shelf Expiration Date Model / Serial / Lot Stent Uret [id number] Contr Percuflex Hydroplus - Sna - [id number] Implanted:Qty: 1 on 03/22/2025 by Chato Falcon MD at [facility] Stents Left: Ureter [employer] Y 12/08/2027 [id number] / NA / [id number] Procedures Procedure Name Priority Date/Time Associated Diagnosis Comments XR UROGRAM RETROGRADE Routine 03/22/2025 10:34 AM EST Pain TH AN LMA(NO CHARGE) Routine 03/22/2025 10:10 AM EST AK CYSTO W URETEROSCOPY/PYELO SCOPY W LITHOTRIPSY INCL INDWELLING URTRL STNT 03/22/2025 9:50 AM EST Calculus of ureter Case Notes C-ARM, GABY, DIRECTOR HEDIS URINALYSIS WITH REFLEX MICROSCOPIC Routine 03/12/2025 2:28 [...] Signed Date: 03/22/2025 12:55 ET Workstation ID: [id number] Transcribed By: Self Edit Transcribed Date: 03/22/2025 [...] Signed Date: 03/22/2025 12:55 ET Workstation ID: [id number] Transcribed By: Self Edit Transcribed Date: 03/22/2025 [...] reflex microscopic (03/12/2025 2:28 PM EDT) Specific [place] Urine 1.029 1.003 - 1.030 LAB URINALYSIS - AUTOMATED METHOD 03/12/2025 7:07 PM [facility] pH, Urine 6.0 5.0 - 8.0 pH LAB URINALYSIS - AUTOMATED METHOD 03/12/2025 7:07 PM [facility] Leukocytes, Urine Small(A) Negative LAB URINALYSIS - AUTOMATED METHOD 03/12/2025 7:07 PM [facility] Nitrite, Urine Negative Negative LAB URINALYSIS - AUTOMATED METHOD 03/12/2025 7:07 PM [facility] Protein, Urine 30(A) <=Trace mg/dL LAB URINALYSIS - AUTOMATED METHOD 03/12/2025 7:07 PM [facility] Glucose, Urine Negative Negative mg/dL LAB URINALYSIS - AUTOMATED METHOD 03/12/2025 7:07 PM [facility] Ketones, Urine Trace(A) Negative mg/dL LAB URINALYSIS - AUTOMATED METHOD 03/12/2025 7:07 PM [facility] Urobilinogen , Urine 0.2 0.2 - 1.0 mg/dL LAB URINALYSIS - AUTOMATED METHOD 03/12/2025 7:07 PM [facility] Bilirubin, Urine Negative Negative LAB URINALYSIS - AUTOMATED METHOD 03/12/2025 7:07 PM [facility] Blood, Urine Large(A) Negative LAB URINALYSIS - AUTOMATED METHOD 03/12/2025 7:07 PM EDT [facility] RBC, Urine 238.4(H) 0 - 4 /HPF LAB URINALYSIS - AUTOMATED METHOD 03/12[facility]25 [facility] WBC, Urine 14.1(H) 0 - 4 /HPF LAB URINALYSIS - AUTOMATED METHOD 03/12/2025 7:07 PM EDT [facility] Squamous Epithelial, Urine 68(H) 0 - 60 /LPF LAB URINALYSIS - AUTOMATED METHOD 03/12/2025 7:07 PM [facility] Crystals, Urine Moderate Calcium Oxalate crystals. /LPF LAB URINALYSIS - AUTOMATED METHOD 03/12/2025 7:07 PM [facility] Bacteria, Urine Few(A) Negative /HPF LAB URINALYSIS - AUTOMATED METHOD 03/12/2025 7:07 PM [facility] Hyaline Casts, Urine 1.2 0 - 3 /LPF LAB URINALYSIS - AUTOMATED METHOD 03/12/2025 7:07 PM [facility] Mucus, Urine Small None /HPF LAB URINALYSIS - AUTOMATED METHOD 03/12/2025 7:07 PM [facility] Urine Urine specimen obtained by clean catch procedure / Unknown 03/12/2025 2:28 PM EDT 03/12/2025 5:47 PM EDT us Robin Cooney MD LAB URINE ORDERABLES Final Resul t [facility] [address] [place] [address], * Culture urine (03/12/2025 2:28 PM EDT) Culture, Urine No growth 03/13/2025 11:45 AM EDT [facility] Urine Urine specimen obtained by clean catch procedure / Unknown 03/12/2025 2:28 PM EDT 03/12/2025 5:47 PM EDT us Robin Cooney MD LAB MICROBIOLOGY - GENERAL ORDER PADMINI Final Result [facility] [address] [place] [address], from Last 3 Months Insurance [facility] MEDICAID ADVANTAGE [address] [place] [address] Care Teams Store Person Relationship Specialty Start Date End Date Yovany Caballero MD [address] [facility] [address] [place] [address] PCP - General Internal Medicine 04/02/18
--- OUTSIDE RECORDS SUMMARY | 2025-05-04 18:01 | XMS_ITS | Encounter Summary ---
Author Organization [employer] Address [address] [place] [address] Street 7[address] [place] [address] Care Team Providers Care Wireless Construction Manager Name Role Phone Name, Toni TREADWELL Primary Care Provider [phone] Encounter Details Date Type Department Care Team (Latest Contact Info) Description 05/04/2025 Travel Social History Tobacco Use Types Packs/Day [...] Description 05/10/2025 9:30 AM EST Office Visit [facility] ADULT DENTAL [address] [place] [address] Thang Roblero DDS [address] [place] [address] 05/11/2025 9:30 AM EST Medication Management [facility] MED[facility]INE [address] [place] [address] Skylar Mortensen, PharmD [address] [place] [address] 06/16/2025 3:00 PM EST Office Visit [facility] ADULT DENTAL [address] [place] [address] Timothy Cedeño [address] [place] [address] documented as of this encounter Visit Diagnoses Not on filedocumented in this encounter Care Teams Wireless Construction Manager Relationship Specialty Start Date End Date Name, MD Toni [address] [place] [phone] PCP - General Family Medicine 07/11/21 documented as of this encounter
--- OUTSIDE RECORDS SUMMARY | 2025-05-04 18:01 | XMS_ITS | Clinical Summary ---
Author Organization [employer] Address [address] [place] [address] 7t [place] [address] Care Team Providers Care Manifold Builder Name Role Phone Name, Toni TREADWELL Primary Care Provider [phone] Allergies Active Allergy Reactions Criticality Noted Date Comments Tramadol Low 07/02/2022 Other reaction(s): SOB Other reaction(s): Chest Pain Medications pantoprazole (Protonix) 40 MG EC tablet Take 1 tablet (40 mg) by mouth before breakfast. Do not crush, chew, or split. 30 tablet 2 4 Active atorvastatin (Lipitor) 20 MG tablet Take 1 tablet (20 mg) by mouth Once per day. 30 tablet 11 5 01/12/20 26 Active valsartan-hydro CHLOROthiazide (Diovan HCT) 80-12.5 MG tablet Take 1 tablet by mouth Once per day. 30 tablet 11 5 02/17/20 26 Active ibuprofen 400 MG tablet Take 1 tablet by mouth if needed in the morning, at noon, and at bedtime for moderate pain. Take with food or milk 5 Active ondansetron (Zofran) 4 MG tablet Take 4 mg by mouth every 8 (eight) hours if needed for nausea or vomiting. 5 Active oxybutynin (Ditropan) 5 MG tablet Take 1 tablet by mouth if needed in the morning, at noon, and at bedtime (urinary discomfort). 5 Active amoxicillin (Amoxil) 500 MG capsule Take 1 capsule (500 mg) by mouth every 8 (eight) hours for 10 days. 30 capsule 5 05/13/20 25 Active cyclobenzaprine (Flexeril) 10 MG tabletIndicatio ns:Trapezius strain, right, initial encounter,Neck pain One tab po at bedtime prn pain of muscles, do not drive with medicaion 30 tablet 5 Active ibuprofen 800 MG tabletIndicatio ns:Trapezius strain, right, initial encounter,Neck pain Take 1 tablet (800 mg) by mouth every 8 (eight) hours if needed for moderate pain or fever. 30 tablet 5 06/03/19 26 Active Lidocaine 5 % creamIndication s:Trapezius strain, right, initial encounter,Neck pain Apply topically bid 30 g 3 5 Active Active Problems Problem Noted Date Diagnosed [...] 07/02/2022 Overview (08/23/2023): right thyroid lobectomy at [facility] 10/2021, he was found to have small 1.3cm encapsulated PTC with negative margins and negative lymph nodes. Surgery is considered curative and the plan is that he will follow with [facility] to check the TSH (low range TSH was recommended to his endocrine surgeon) History of lobectomy of thyroid 07/02/2022 Overview (08/23/2023): right thyroid lobectomy at [facility] 10/2021, he was found to have small 1.3cm encapsulated PTC with negative margins and negative lymph nodes. Surgery is considered curative and the plan is that he will follow with [facility] to check the TSH (low range TSH [...] to pain management He then presented to [facility] from 05/01 until 05/04 [...] Encounters Date Type Department Care Team Description 05/04/2025 1:20 PM EST Office Visit [facility] [address] [place] [address] Corinna Kingsley MD Trapezius strain, right, initial encounter (Primary Dx); Neck pain 05/04/2025 Results Follow-Up [facility] [address] [place] [address] Corinna Kingsley MD XR CERVICAL SPINE 4V 05/04/[address] [address] Toni Watts MD Appointment Request 05/04/2025 Travel 05/04/[address] [address] Toni Watts MD Appointment Request 05/04/[address] [address] Toni Watts MD Nurse Triage 05/03/2025 8:00 AM EST Office Visit [facility] [address] [place] [address] Thang Roblero, DIAZ Periapical abscess without sinus (Primary Dx) 05/03/[address] [address] Toni Watts MD Appointment Request 04/28/2025 Travel 04/27/[address] [address] Toni Watts MD Chart Prep 04/27/[address] [address] Toni Watts MD Insurance 04/26/2025 9:00 AM EST Office Visit [facility] [address] [place] [address] Thang Roblero, DDS Dental abscess (Primary Dx) 04/23/[address] [address] Toni Watts MD Nurse Triage 04/09/[address] [address] Toni Watts MD returning call 04/07/2025 9:00 AM EST Office Visit [facility] [address] [place] [address] Traci Juan Periapical abscess without sinus (Primary Dx) 04/06/[address] [address] Toni Watts MD Referral 04/06/[address] [address] Toni Watts MD 03/29/2025 Results Follow-Up [facility] [address] [address] Yulisa, Shilpa, RADIOGRAPHER ANGIOGRAM Culture, Urine, Routine, POCT Urinalysis 03/26/2025 10:20 AM EST Office Visit [facility] [address] [place] [address] Yulisa, Shilpa, RADIOGRAPHER ANGIOGRAM Dysuria 03/26/2025 Telephone [facility] [address] [place] [address] Toni Watts MD Medication Question 03/26/2025 Travel 03/19/2025 8:45 AM EDT Office Visit [facility] [address] [place] [address] Steve Waddelline Periapical abscess without sinus (Primary Dx) 03/16/2025 2:00 PM EDT Office Visit [facility] [address] [place] [address] Toni Watts MD Renal stones (Primary Dx); Dysuria; Bacteremia due to Escherichia coli 03/16/2025 Travel 03/15/[address] [address] Abdon Irene [place] Chart Prep 03/11/2025 Patient Outreach [address] [address] Toni Watts MD Transition Of Care (Tcm) (HDF- Unscheduled LVM) 03/04/[address] [address] Toni Watts MD Change PCP 03/02/2025 10:30 AM EDT Telemedicine [address] [address] Karoline Carrero, YANETH Primary hypertension 03/02/2025 Travel 03/01/2025 Patient Outreach [facility] [address] [place], [place] [phone] Toni Watts MD Transition Of Care (Tcm) (HDF scheduled. ) 02/16/2025 10:15 AM EDT Office Visit [address] [address] Toni Watts MD Primary hypertension (Primary Dx); CASTILLO (obstructive sleep apnea); Vaccine refused by patient 02/16/2025 Travel 02/08/2025 Patient Outreach [facility] [address] [place], [place] [phone] Toni Watts MD Pre-visit Planning (SDOH negative, Tobacco screening negative. ) from Last 3 Months Immunizations Immunization Administration [...] 3.2 oz) 05/04/2025 1:16 PM EST Height 172.7 cm (5' 8 ) 03/26/2025 10:40 AM EST Body Mass Index 36.07 03/26/2025 10:40 AM EST Plan of Treatment Upcoming Encounters Date Type Department Care Team (Late st Contact Info) Description 05/10/2025 9:30 AM EST Office Visit [facility] [address] [place] [address] Thang Roblero, DDS [address] [place] [address] 05/11/2025 9:30 AM EST Medication Management [facility] [address] [place] [address] PuiaSkylar, PharmD [address] [place] [address] 06/16/2025 3:00 PM EST Office Visit [facility] [address] [place] [address] Timotyh Cedeño [address] [place] [address] Health Maintenance Due Date Last Done Comments [...] Depression Screening 03/12/2024 03/12/2023, 03/12/20 COVID-19 Vaccine (4 - 2024- season) 2025 10/30/2020, 10/09/2020, 07/30/2020 Influenza Vaccine (#1) 2025 Dental Oral Exam 09/17/2025 03/19/2025, 11/26/2022 Dental Prophylaxis 09/17/2025 03/19/2025, 0 07/18/2023, 11/26/2022 Dental X-Ray: Full Mouth 11/27/2025 11/26/2022 SDOH Screening 02/08/2026 02/08/2025 Dental X-Ray: Bitewings 03/20/2026 03/19/20 25, 09/26/2023, 11/26/2022 Tobacco Screening 05/04/2026 05/04/2025 Lipid Panel 01/09/2030 01/09/2025, 04/0 09/2023, 07/02/2022, [...] Trapezius strain, right, initial encounter Neck pain 3 LIMITED ORAL EVALUATION - PROBLEM FOCUSED Routine 05/03/2025 8:00 AM EST CASE PRESENTATION, DETAILED AND EXTENSIVE TREATMENT PLANNING Routine 04/26/2025 9:00 AM EST LIMITED ORAL EVALUATION - PROBLEM FOCUSED Routine 04/26/2025 9:00 AM EST 3 INTRAORAL - PERIAPICAL FIRST RADIOGRAPHIC IMAGE Routine 04/26/2025 9:00 AM EST CASE PRESENTATION, DETAILED AND EXTENSIVE TREATMENT PLANNING Routine 04/07/2025 9:00 AM EST CONSULTATION - DIAGNOSTIC SERVICE PROVIDED BY DENTIST OR PHYSICIAN OTHER THAN REQUESTING DENTIST OR PHYSICIAN Routine 04/07/2025 9:00 AM EST CULTURE, URINE, ROUTINE Routine 03/26/2025 10:55 AM EST Dysuria POCT URINALYSIS DIPSTICK Routine 03/26/2025 10:48 AM [...] 9:12 AM EDT Screening for cholesterol level INTRAORAL - COMPLETE SERIES OF RADIOGRAPHIC IMAGES Routine 11/26/2022 9:00 AM EDT Encounter for dental examination from Last 3 Months or Most Recently Relevant to Health Maintenance Results * XR CERVICAL SPINE 4V (05/04/2025 2:19 PM EST) Anatomical Region Laterality Modality Abdomen Radiographic Yue ging 05/04/2025 2:19 PM EST Narrative 05/04/2025 3:51 PM EST [facility] [address] [place] [address] XRay Report Signed Patient: Ifeanyi Rooney MR#: Glenna [id number] : 1975 Acct:[id number] Age/Sex: 49 / M ADM Date: 05/04/25 Loc: HO.HHCX Attending Dr: Corinna Kingsley MD Ordering Physician: Corinna Kingsley MD Date of Service: 05/04/25 Procedure(s): XR cervical spine 4V Accession Number(s): [id number] cc: Corinna Kingsley MD; Name,Toni TREADWELL Reason [...] by: Pio Mccurdy MD 05/04/2025 03:48 PM EST Dictated By: Pio Mccurdy MD Signed By: <Electronically signed by Pio Mccurdy MD in OV> 05/04/25 1548 DD/ 1419 TD/TT: 05/04/25 1432 [employer]: Procedure Note Donotuseinterpreter, Image - 05/04/[address] [address] XRay Report Signed Patient: Ifeanyi Rooney#: M [id number] : 1975Acct:[id number] Age/Sex: 49 / MADM Date: 05/04/25 Loc: HO.HHCX Attending Dr: Corinna Kingsley MD Ordering Physician: Corinna Kingsley MD Date of Service: 05/04/25 Procedure(s): XR cervical spine 4V Accession Number(s): [id number] cc: Corinna Kingsley MD; Name,Toni TREADWELL Reason [...] by: Pio Mccurdy MD 05/04/2025 03:48 PM EST RP Dictated By: Pio Mccurdy MD Signed By: <Electronically signed by Pio Mccurdy MD in OV> 05/04/25 1548 DD/ 1419 TD/TT: 05/04/25 1432 [employer]: Corinna Kingsley MD IMG XR PROCEDURES Edited R esult - Final * Culture, Urine, Routine (03/26/2025 10:55 AM EST) Only the most recent of2 resultswithin the time period is included. Urine Urine specimen obtained by clean catch procedure / Unknown 03/26/2025 10:55 AM EST 03/26/2025 5:58 PM EST Comment:UACC Narrative [facility] - 03/28/2025 2:06 PM EST Urine Culture No growth. Specimen Source: Urine clean catch [facility] LAB MICROBIOLOGY - GENERAL OR DERABLES Final Result [facility] [address] [place] [phone] * (ABNORMAL) POCT Urinalysis (03/26/2025 10:48 AM [...] Urine (Urine, Random) 03/26/2025 10:48 AM EST [facility] POINT OF CARE TEST ENTER/EDIT ORDERABLES Final Result * (ABNORMAL) Urinalysis, Complete, with Reflex to Culture (03/16/2025 2:38 PM EDT) Color Urine Yellow [facility] Appearance Urine Clear [facility] PH 5.5 5.0 - 9.0 [facility] Glucose Urine UA Negative Negative mg/dL [facility] Urine Blood Large (3+)(A) Negative [facility] Specific Williams - Urine 1.010 1.005 - 1.025 [facility] Urine Protein Negative Neg-Trace mg/dL [facility] Urine Ketones Negative Negative mg/dL [facility] Nitrite Urine Negative Negative [facility] Leukocyte Esterase Urine Small (1+)(A) Negative [facility] RBC Urine 6-10(A) 0 - 2 /HPF [facility] Urine WBC 0-5 0 - 5 /HPF [facility] Urine Squamous Epithelial Cell 0-2 0 - 2 /HPF [facility] Urine Bacteria None Seen None Seen [facility] Hyaline Casts, Urine 0-2 0 - 2 /LPF [facility] Urine 03/16/2025 2:38 PM EDT 03/16/2025 6:39 PM EDT Narrative [facility] - 03/16/2025 9:25 PM EDT Urine, Clean Catch us Toni Name LAB URINE ORDERABLES Final Resul t [facility] [address] [place] [address] [phone] * (ABNORMAL) Lipid Panel, Standard (01/09/2025 9:12 AM EDT) Triglycerides 456(H) <150 mg/dL [facility] Comment:Desirable Triglyceri de: less than 150 mg/dLBorderline High Triglyceride 150-199 mg/dLHigh Triglyceride: 200-499 mg/dLVery High Triglyceride: greater than or equal to 5OO mg/dL Cholesterol 175 <200 mg/dL [facility] Comment:Desirable Cholestero l: less than 200 mg/dLBorderline High Cholesterol: 200-239 mg/dLHigh Cholesterol: greater than 239 mg/dL LDL Cholesterol Calculated TNP <100 mg/dL [facility] Comment:Unable to calculate the LDL. The formula of Friedwald,Keen, and Viktor is only valid if the triglycerides areless than 400 mg/dl. HDL Cholesterol 29(L) >40 mg/dL [facility] Comment:Desirable HDL: great er than 40 mg/dL Note: This HDL assay may give artificially low results in patients with liver disease. Blood Venous blood specimen / Unknown 01/09/2025 9:12 AM EDT 01/09/2025 9:12 AM EDT us Toni Watts MD LAB BLOOD ORDERABLES Final Resul t [facility] [address] [place] [address] [phone] from Last 3 Months or Most Recently Relevant to Health Maintenance [place] [address] [place] [address] C[facility] MEDICAID ST[place] ADULT Care Teams Manifold Builder Relationship Specialty Start Date End Date Name, MD Toni [address] [place] [phone] PCP - General Family Medicine 07/11/21
--- OUTSIDE RECORDS SUMMARY | 2025-05-04 18:01 | XMS_ITS | Encounter Summary ---
Author Organization [employer] Address [address] [place] [address] 7 [place] [address] Care Team Providers Care Psychiatric Assistant Name Role Phone Name, Toni TREADWELL Primary Care Provider [phone] Reason for Visit * Reason Onset Date Comments returning call 04/09/2025 Encounter Details Date Type Department Care Team (Late st Contact Info) Description 04/09/2025 Telephone [facility] [address] [place] [address] Name, MD Toni [address] [place] [address] returning call Social History Tobacco Use Types Packs/Day Years [...] Description 05/10/2025 9:30 AM EST Office Visit [facility] [address] [place] [address] Thang Roblero, DDS [address] [place] [address] 05/11/2025 9:30 AM EST Medication Management [facility] [address] [place] [address] Skylar Mortensen, PharmD [address] [place] [phone] 06/16/2025 3:00 PM EST Office Visit [facility] [address] [place] [address] Timothy Cedeño [address] [place] [address] documented as of this encounter Visit Diagnoses Not on filedocumented in this encounter Care Teams Psychiatric Assistant Relationship Specialty Start Date End Date Name, MD Toni [address] [place] [address] PCP - General Family Medicine 07/11/21 documented as of this encounter
--- OUTSIDE RECORDS SUMMARY | 2025-05-04 18:01 | XMS_ITS | Encounter Summary ---
Author Organization [employer] Address [address] [place] [address] 7 [place] [address] Care Team Providers Care Fashion Intern Name Role Phone Name, Toni TREADWELL Primary Care Provider [phone] Reason for Visit * Reason Onset Date Comments Appointment Request 05/04/2025 Encounter Details Date Type Department Care Team ([facility] st Contact Info) Description 05/04/2025 Telephone [facility] MED[facility] [address] [place] [address] Name, MD Toni [address] [place] [address] Appointment Request Social History Tobacco Use Types [...] encounter Miscellaneous Notes * Telephone Encounter - Shun Bailey - 05/04/2025 10:48 AM EST Tc from Spouse requesting to reschedule miss appointment for pt on 05/04. Quantitative Analyst Marketing unable to scheduledue to no available appointments. Pt aware that will be placed on recall. Contact pt's Spouse at [phone] documented in this encounter Plan of Treatment Upcoming Encounters Date Type Department Care Team ([facility] st Contact Info) Description 05/10/2025 9:30 AM EST Office Visit [facility] [address] [place] [address] Thang Roblero DDS [address] [place] [address] 05/11/2025 9:30 AM EST Medication Management [facility] MEDICINE [address] [place] [address] Skylar Mortensen PharmD [address] [place] [address] 06/16/2025 3:00 PM EST Office Visit [facility] [address] [place] [address] Timothy Castro 230 [place] [address] documented as of this encounter Visit Diagnoses Not on filedocumented in this encounter Care Teams Fashion Intern Relationship Specialty Start Date End Date Name, MD Toni [address] [place] [address] PCP - General Family Medicine 07/11/21 documented as of this encounter
--- OUTSIDE RECORDS SUMMARY | 2025-05-04 18:01 | XMS_ITS | Encounter Summary ---
Author Organization [employer] Address [address] [place] [address] 7 [place] [address] Care Team Providers Care Heavy Forger Helper Name Role Phone Name, Toni TREADWELL Primary Care Provider [phone] Encounter Details Date Type Department Care Team ([facility] st Contact Info) Description 04/06/2025 Telephone [facility] MEDICINE [address] [place] [address] Name, MD Toni [address] [place] [address] Social History Tobacco Use Types Packs/Day Years [...] 9:30 AM EST Office Visit [facility] ADULT DENTAL 505 [place] [address] Thang Roblero DDS [address] [place] [address] 05/11/2025 9:30 AM EST Medication Management [facility] MEDICINE [address] [place] [address] Skylar Mortensen, PharmD [address] [place] [address] 06/16/2025 3:00 PM EST Office Visit [facility] ADULT DENTAL [address] [place] [address] Timothy Cedeño 230 [place] [address] documented as of this encounter Visit Diagnoses Not on filedocumented in this encounter Care Teams Heavy Forger Helper Relationship Specialty Start Date End Date Name, MD Toni [address] [place] [address] PCP - General Family Medicine 07/11/21 documented as of this encounter
--- OUTSIDE RECORDS SUMMARY | 2025-05-04 18:01 | XMS_ITS | Encounter Summary ---
Author Organization [employer] Address [address] [place] [address] Street 7t [place] [address] Care Team Providers Care Captain Fire Prevention Bureau Name Role Phone Name, Toni TREADWELL Primary Care Provider [phone] Encounter Details Date Type Department Care Team ([facility] st Contact Info) Description 03/29/2025 Results Follow-Up [facility] [address] [place] [address] [facility] [address] [place] [address] Culture, Urine, Routine, POCT Urinalysis Social History Tobacco Use Types Packs/Day Years [...] encounter Miscellaneous Notes * Telephone Encounter - Carolina Gaytan RN - 03/29/2025 3:00 PM EST TC placed to pt. Informed pt. Urine specimen from 03/26 returned negative for infection. Pt. Reportshe did not take the augmentin yet, and advised pt. No need to start. Pt. Verbalizes understanding, reports urology appointment Is tomorrow therefore had to cancel CDTM appointment and is requesting call back to r/s documented in this encounter Plan of Treatment Upcoming Encounters Date Type Department Care Team (Late st Contact Info) Description 05/10/2025 9:30 AM EST Office Visit [facility] ADULT DENTAL [address] [place] [address] Thang Roblero, DDS [address] [place] [address] 05/11/2025 9:30 AM EST Medication Management [facility] MED[facility] [address] [place] [address] Skylar Mortensen, PharmD [address] [place] [address] 06/16/2025 3:00 PM EST Office Visit [facility] ADULT DENTAL [address] [place] [address] Timothy Cedeño 230 [place] [address] documented as of this encounter Visit Diagnoses Not on filedocumented in this encounter Care Teams Captain Fire Prevention Bureau Relationship Specialty Start Date End Date Name, MD Toni [address] [place] [address] PCP - General Family Medicine 07/11/21 documented as of this encounter
--- OUTSIDE RECORDS SUMMARY | 2025-05-04 18:01 | XMS_ITS | Encounter Summary ---
Author Organization [employer] Address [address] [place] [address] 7 [place] [address] Care Team Providers Care Graphic Designer Name Role Phone Name, Toni TREADWELL Primary Care Provider Reason for Visit * Reason Onset Date Comments Appointment Request 05/04/2025 Encounter Details Date Type Department Care Team ([facility] st Contact Info) Description 05/04/2025 Telephone [facility] MEDICINE [address] [place] [address] Name, MD Toni [address] [place] [address] Appointment Request Social History Tobacco Use Types [...] encounter Miscellaneous Notes * Telephone Encounter - Myranda Diaz MA - 05/04/2025 1:29 PM EST Tc to pt's Spouse requesting to reschedule missed appointment for pt on 05/04. Unable to reach, left a voicemail to return phone call. *If call is returned please reschedule pt's appointment.* documented in this encounter Plan of Treatment Upcoming Encounters Date Type Department Care Team ([facility] st Contact Info) Description 05/10/2025 9:30 AM EST Office Visit [facility] ADULT DENTAL [address] [place] [address] Thang Roblero DDS 505 [place] [address] 05/11/2025 9:30 AM EST Medication Management [facility] MED[facility] [address] [place] [address] Skylar Mortensen, PharmD 230 [place] [address] 06/16/2025 3:00 PM EST Office Visit [facility] ADULT DENTAL 505 [place] [address] Timothy Cedeño 230 [place] [address] documented as of this encounter Visit Diagnoses Not on filedocumented in this encounter Care Teams Graphic Designer Relationship Specialty Start Date End Date Name, MD Toni [address] [place] [address] PCP - General Family Medicine 07/11/21 documented as of this encounter
--- OUTSIDE RECORDS SUMMARY | 2025-05-04 18:01 | XMS_ITS | Encounter Summary ---
Author Organization [employer] Address [address] [place] [address] 7 [place] [address] Care Team Providers Care Safety Risk Lead Name Role Phone Name, Toni TREADWELL Primary Care Provider Encounter Details Date Type Department Care Team (Late st Contact Info) Description 11/28/2024 Orders Only [facility] [address] [place] [address] Jace Frederick MD 505 [place] [address] Social History Tobacco Use Types Packs/Day Years [...] [facility] [address] [place] [address] Thang Roblero, DDS 505 [place] [address] 05/11/2025 9:30 AM EST Medication Management [facility] MEDICINE 230 [place] [address] RosmeryiaSkylar, PharmD [address] [place] [address] 06/16/2025 3:00 PM EST Office [facility] ADULT DENTAL [address] [place] [address] Timothy Cedeño 230 [place] [address] documented as of this encounter Procedures Procedure Name Priority Date/Time Associated Diagnosis Comments CULTURE, URINE, ROUTINE Routine 03/16/2025 12:00 AM EDT documented in this encounter Results * Culture, Urine, Routine (03/16/2025 12:00 AM EDT) Urine Urine specimen obtained by clean catch procedure / Unknown 03/16/2025 03/16/2025 Comment:[facility] - 03/18/2025 10:47 AM EDT Urine Culture No growth. Specimen Source: Urine clean catch us Toni Watts MD LAB MICROBIOLOGY - GENERAL ORDER PADMINI Final Result [facility] [address] [place] [address] [phone] documented in this encounter Visit Diagnoses Not on filedocumented in this encounter Care Teams Safety Risk Lead Relationship Specialty Start Date End Date Name, MD Toni [address] [place] [address] PCP - General Family Medicine 07/11/21 documented as of this encounter
== END 2025-05-04 13:50 | disposition home or self-care (01) ==
LOC: HO.HHCX 13:49
PROVIDERS: PCP Internal Medicine Geriatric Medicine; Visit Provider Family Medicine
DX: S46.811A Strain of other muscles, fascia and tendons at shoulder and upper arm level, right arm, initial encounter (principal); M54.2 Cervicalgia
CPT/HCPCS: 72050

== ENCOUNTER → 2025-05-04 13:56 | Outpatient (BNV) | payer MEDICAID, SELFPAY | PROVIDERS: PCP Internal Medicine Geriatric Medicine; Visit Provider Radiology Diagnostic Radiology | DX: M47.812 Spondylosis without myelopathy or radiculopathy, cervical region (principal) | CPT/HCPCS: 72050 ==

== ENCOUNTER 2025-05-11 09:47 | Outpatient (REF) | payer MEDICAID, SELFPAY ==
--- OUTSIDE RECORDS SUMMARY | 2025-05-10 09:30 | XMS_ITS | Encounter Summary ---
Author Organization [employer] Address [address] [place] [address] 7t [place] [address] Care Team Providers Care Funeral Arranger Name Role Phone Name, Toni TREADWELL Primary Care Provider [phone] Reason for Visit * Reason Comments endo [place] #3 Encounter Details Date Type Department Care Team (Late st Contact Info) Description 05/10/2025 9:30 AM EST Office Visit [facility] ADULT DENTAL [address] [place] [address] Kandru Thang, DDS [address] [place] [address] Periapical abscess without sinus (Primary Dx) Social [...] Sign Reading Time Taken Comments Blood Pressure 130/80 05/10/2025 9:45 AM EST Pulse - - Temperature - - Respiratory Rate - - Oxygen Saturation - - Inhaled Oxygen Concentration - - Weight - - Height - - Body Mass Index - - documented in this encounter Progress Notes * Thang Roblero DDS - 05/10/2025 9:30 AM EST Patient is here for a retreat rct # 3 she complaints of pain from that tooth On exam # 3 has crown Rct consent taken and time out taken. Rubber dam placed Access refined, found 3 canal Wl: mb and db-19 mm and P-21 mm Naocl irrigation and dried the canals Cleaning and shaping done with f2 Cone fit radiograph taken. Obturation done with bc sealer. Cotton pellet and ketac placed. [place] rct # 3 complete POI given NV: permanent filling in the access # 3 documented in this encounter Plan of Treatment Upcoming Encounters Date Type Department Care Team (Late st Contact Info) Description 06/11/2025 1:00 PM EST Office Visit [facility] ADULT DENTAL [address] [place], [place] [phone] Rashid Zimmerman DDS [address] [place], [place] [phone] 06/16/2025 3:00 PM EST Office Visit [facility] ADULT [facility] [address] [place] [address] Timothy Cedeño [address] [place] [address] 06/21/2025 10:30 AM EST Medication Management [facility] MEDICINE [address] [place] [address] Skylar Mortensen, PharmD [address] [place] [address] Scheduled Orders Name Type Priority Associated Diagnoses Orde r Schedule 3 3 CORE BUILDUP, INCL ANY PINS WHEN REQ Dental Routine [address] [place]ting 05/10/2025 documented as of this encounter Procedures Procedure Name Priority Date/Time Associated Diagnosis Comments 3 RETREATMENT OF PREVIOUS ROOT CANAL THERAPY - MOLAR Routine 05/10/2025 9:30 AM EST Periapical abscess without sinus CASE PRESENTATION, DETAILED AND EXTENSIVE TREATMENT PLANNING Routine 05/10/2025 9:30 AM EST documented in this encounter Visit Diagnoses Diagnosis Periapical abscess without sinus- Primary documented in this encounter Care Teams Funeral Arranger Relationship Specialty Start Date End Date Name, MD Toni [address] [place] [address] PCP - General Family Medicine 07/11/21 documented as of this encounter
--- OUTSIDE RECORDS SUMMARY | 2025-05-11 10:37 | XMS_ITS | Encounter Summary ---
Author Organization [employer] Address [address] [place] [address] Street 7t [place] [address] Care Team Providers Care Hydraulic Jack Adjuster Name Role Phone Name, Toni TREADWELL Primary Care Provider [phone] Reason for Visit * Reason Onset Date Comments Abnormal X-ray 05/04/2025 Encounter Details Date Type Department Care Team (Late st Contact Info) Description 05/04/2025 Results Follow-Up [facility] [address] [place] [address] Corinna Kingsley MD [address] [place] [address] XR CERVICAL SPINE 4V Social History Tobacco [...] Telephone Encounter - Abdon Irene MA - 05/06/2025 12:53 PM EST TC- Patient in regards of x- ray with no concerns. * Telephone Encounter - Abdon Irene MA - 05/06/2025 12:52 PM EST ----- Message from Niesha Rosales RN sent at 05/05/2025 9:44 AM EST ----- ----- Message ----- From: Corinna Kingsley MD Sent: 05/04/2025 5:44 PM EST To: [facility] Nurses Please let pt know x ray of neck without concern. Thank you. ----- Message ----- From: Shaka Ris Results In Sent: 05/04/2025 3:52 PM EST To: Corinna Kingsley MD * Telephone Encounter - Niesha Rosales RN - 05/05/2025 8:25 AM EST TC placed to pt to discuss the message below pt is aware of no acute findings. Advised to continue ibuprofen, Flexeril, and lidocaine patch as discussed during visit. Patient would like a follow up with PCP scheduled to follow up and he is aware appointment will be next year will send message to [facility] PCP ----- Message from Corinna Kingsley MD sent at 05/04/2025 5:44 PM EST ----- Please let pt know x ray of neck without concern. Thank you. ----- Message ----- From: Shaka, Ris Results In Sent: 05/04/2025 3:52 PM EST To: Corinna Kingsley MD documented in this encounter Plan of Treatment Upcoming Encounters Date Type Department Care Team (Late st Contact Info) Description 06/11/2025 1:00 PM EST Office [facility] ADULT D[facility] [address] [place] [address] Rashid Zimmerman, DDS [address] [place] [address] 06/16/2025 3:00 PM EST Office [facility] ADULT D[facility] [address] [place] [address] Timothy Cedeño 230 [place] [address] 06/21/2025 10:30 AM EST Medication Management [facility] MEDICINE [address] [place] [address] Skylar Mortensen, PharmD [address] [place] [address] documented as of this encounter Visit Diagnoses Not on filedocumented in this encounter Care Teams Hydraulic Jack Adjuster Relationship Specialty Start Date End Date Name, MD Toni [address] [place] [address] PCP - General Family Medicine 07/11/21 documented as of this encounter
--- OUTSIDE RECORDS SUMMARY | 2025-05-11 10:37 | XMS_ITS | Encounter Summary ---
Author Organization [employer] Address [address] [place] [address] 7 [place] [address] Care Team Providers Care Sales Manager Prearranged Funerals Name Role Phone Name, Toni TREADWELL Primary Care Provider [phone] Skylar Mortensen PharmD Unavailable Reason for Visit * Reason Onset Date Comments Appointment Request 05/03/2025 Encounter Details Date Type Department Care Team ([facility] st Contact Info) Description 05/03/2025 Telephone [facility] MEDICINE [address] [place], [place] [phone] Name, MD Toni [address] [place], [place] [phone] Appointment Request Social History Tobacco Use Types Packs/Day Years Used Date Smoking Tobacco: Never Passive Smoke Exposure: Never Smokeless Tobacco: Never Alcohol Use Standard Drinks/Week Comments Never 0 (1 standard drink = 0.6 oz pur e alcohol) PHQ-2 Answer Date Recorded Patient Health Questionnaire-2 Score 0 07/02/2022 Housing Stability Answer Date Recorded What is your housing situation today? I have marla sing 02/08/[address] you li [...] insurance being active again. Contact pt at [phone] documented in this encounter Plan of Treatment Upcoming Encounters Date Type Department Care Team (Late st Contact Info) Description 06/11/2025 1:00 PM EST Office Visit [facility] ADULT DENTAL [address] [place] [address] Rashid Zimmerman DDS [address] [place] [address] 06/16/2025 3:00 PM EST Office Visit [facility] ADULT DENTAL 505 [place] [address] Timothy Cedeño [address] [place] [address] 06/21/2025 10:30 AM EST Medication Management [facility] MEDICINE [address] [place] [address] Skylar Mortensen, PharmD [address] [place] [address] documented as of this encounter Visit Diagnoses Not on filedocumented in this encounter Care Teams Sales Manager Prearranged Funerals Relationship Specialty Start Date End Date Name, MD Toni [address] [place] [address] PCP - General Family Medicine 07/11/21 Skylar Mortensen, Lanie [address] [place] [address] Pharmacist Pharmacy 05/11/25 documented as of this encounter
--- OUTSIDE RECORDS SUMMARY | 2025-05-11 10:37 | XMS_ITS | Encounter Summary ---
Author Organization [facility] Address [address] [place] [address] Care Team Providers Care Machine Operator Transplanter Name Role Phone Yovany Caballero MD Primary Care Provider [phone] Encounter Details Date Type Department Care Team (Late st Contact Info) Description 03/12/2025 Lab Requisition [facility] - Main Lab [address] [facility] [employer] [place] [address] Robin Cooney MD [address] [place], [place] [phone] Urinary tract infection, site not specified Social [...] reflex microscopic (03/12/2025 2:28 PM EDT) Specific [place] Urine 1.029 1.003 - 1.030 LAB URINALYSIS - AUTOMATED METHOD 03/12/2025 7:07 PM [facility] pH, Urine 6.0 5.0 - 8.0 pH LAB URINALYSIS - AUTOMATED METHOD 03/12/2025 7:07 PM [facility] Leukocytes, Urine Small(A) Negative LAB URINALYSIS - AUTOMATED METHOD 03/12/2025 7:07 PM [facility] Nitrite, Urine Negative Negative LAB URINALYSIS - AUTOMATED METHOD 03/12/2025 7:07 PM [facility] Protein, Urine 30(A) <=Trace mg/dL LAB URINALYSIS - AUTOMATED METHOD 03/12/2025 7:07 PM [facility] Glucose, Urine Negative Negative mg/dL LAB URINALYSIS - AUTOMATED METHOD 03/12/2025 7:07 PM [facility] Ketones, Urine Trace(A) Negative mg/dL LAB URINALYSIS - AUTOMATED METHOD 03/12/2025 7:07 PM [facility] Urobilinogen , Urine 0.2 0.2 - 1.0 mg/dL LAB URINALYSIS - AUTOMATED METHOD 03/12/2025 7:07 PM [facility] Bilirubin, Urine Negative Negative LAB URINALYSIS - AUTOMATED METHOD 03/12/2025 7:07 PM [facility] Blood, Urine Large(A) Negative LAB URINALYSIS - AUTOMATED METHOD 03/12/2025 7:07 PM [facility] RBC, Urine 238.4(H) 0 - 4 /HPF LAB URINALYSIS - AUTOMATED METHOD 03/12/2025 7:07 PM [facility] WBC, Urine 14.1(H) 0 - 4 /HPF LAB URINALYSIS - AUTOMATED METHOD 03/12/2025 7:07 PM EDT [facility] Squamous Epithelial, Urine 68(H) 0 - 60 /LPF LAB URINALYSIS - AUTOMATED METHOD 03/12/2025 7:07 PM EDT [facility] Crystals, Urine Moderate Calcium Oxalate crystals. /LPF LAB URINALYSIS - AUTOMATED METHOD 03/12/2025 7:07 PM [facility] Bacteria, Urine Few(A) Negative /HPF LAB URINALYSIS - AUTOMATED METHOD 03/12/2025 7:07 PM EDT [facility] Hyaline Casts, Urine 1.2 0 - 3 /LPF LAB URINALYSIS - AUTOMATED METHOD 03/12/2025 7:07 [facility] Mucus, Urine Small None /HPF LAB URINALYSIS - AUTOMATED METHOD 03/12/2025 7:07 PM [facility] Urine Urine specimen obtained by clean catch procedure / Unknown 03/12/2025 2:28 PM EDT 03/12/2025 5:47 PM EDT us Robin Cooney MD LAB URINE ORDERABLES Final Resul t [facility] [address] [place] [address], [place] [phone] * Culture urine (03/12/2025 2:28 PM EDT) Culture, Urine No growth 03/13/2025 11:45 AM EDT [facility] Urine Urine specimen obtained by clean catch procedure / Unknown 03/12/2025 2:28 PM EDT 03/12/2025 5:47 PM EDT us Robin Cooney MD LAB MICROBIOLOGY - GENERAL ORDER PADMINI Final Result Performing Organization Address [facility]/ZIP Co de Phone Number [facility] [address] [place] [address], [place] [phone] documented in this encounter Visit Diagnoses Diagnosis Urinary tract infection, site not specified documented in this encounter Care Teams Machine Operator Transplanter Relationship Specialty Start Date End Date Yovany Caballero MD [address] [place] [address] PCP - General Internal Medicine 04/02/18 documented as of this encounter
--- OUTSIDE RECORDS SUMMARY | 2025-05-11 10:37 | XMS_ITS | Encounter Summary ---
Author Organization [employer] Address [address] [place] [address] 7 [place] [address] Care Team Providers Care Mix Crusher Operator Name Role Phone Name, Toni TREADWELL Primary Care Provider [phone] Skylar Mortensen PharmD Unavailable Reason for Visit * Reason Onset Date Comments Appointment Request 05/04/2025 Encounter Details Date Type Department Care Team ([facility] st Contact Info) Description 05/04/2025 Telephone [facility] [address] [place], [place] [phone] Name, MD Toni [address] [place], [place] [phone] Appointment Request Social History Tobacco Use Types [...] reschedule miss appointment for pt on 05/04. [employer] Drilling Machine Operator unable to scheduledue to no available appointments. Pt aware that will be placed on recall. Contact pt's Spouse at [phone] documented in this encounter Plan of Treatment Upcoming Encounters Date Type Department Care Team (Late st Contact Info) Description 06/11/2025 1:00 PM EST Office Visit [facility] ADULT DENTAL [address] [place] [address] Rashid Zimmerman DDS [address] [place] [address] 06/16/2025 3:00 PM EST Office Visit [facility] ADULT DENTAL [address] [place] [address] Timothy Cedeño [address] [place] [address] 06/21/2025 10:30 AM EST Medication Management [facility] [address] [place] [address] Skylar Mortensen PharmD [address] [place] [address] documented as of this encounter Visit Diagnoses Not on filedocumented in this encounter Care Teams Mix Crusher Operator Relationship Specialty Start Date End Date Name, MD Toni [address] [place] [address] PCP - General Family Medicine 07/11/21 Skylar Mortensen, Lanie [address] [place] [address] Pharmacist Pharmacy 05/11/25 documented as of this encounter
--- OUTSIDE RECORDS SUMMARY | 2025-05-11 10:38 | XMS_ITS | Encounter Summary ---
Author Organization [employer] Address [address] [place] [address] 7 [place] [address] Care Team Providers Care Environment Coordinator Name Role Phone Name, Toni TREADWELL Primary Care Provider [phone] Skylar Mortensen PharmD Unavailable [phone] Encounter Details Date Type Department Care Team (Late st Contact Info) Description 11/28/2024 Orders Only [facility] MED & PEDS [address] [place] [address] Jace Frederick MD [address] [place] [address] Social History Tobacco Use Types Packs/Day Years [...] Description 06/11/2025 1:00 PM EST Office Visit [facility] ADULT DENTAL [address] [place] [address] Rashid Zimmerman DDS [address] [place] [address] 06/16/2025 3:00 PM EST Office Visit [facility] ADULT DENTAL [address] [place] [address] Timothy Cedeño [address] [place] [address] 06/21/2025 10:30 AM EST Medication Management [facility] MEDICINE [address] [place] [address] PuiaSkylar, PharmD [address] [place] [address] documented as of this encounter Procedures Procedure Name Priority Date/Time Associated Diagnosis Comments CULTURE, URINE, ROUTINE Routine 03/16/2025 12:00 AM EDT documented in this encounter Results * Culture, Urine, Routine (03/16/2025 12:00 AM EDT) Urine Urine specimen obtained by clean catch procedure / Unknown 03/16/2025 03/16/2025 Comment:UACC Narrative [facility] - 03/18/2025 10:47 AM EDT Urine Culture No growth. Specimen Source: Urine clean catch us Toni Name LAB MICROBIOLOGY - GENERAL ORDER PADMINI Final Result [facility] [address] [place] [phone] documented in this encounter Visit Diagnoses Not on filedocumented in this encounter Care Teams Environment Coordinator Relationship Specialty Start Date End Date Name, MD Toni [address] [place] [address] PCP - General Family Medicine 07/11/21 Skylar Mortensen, GenaroD [address] [place] [address] Pharmacist Pharmacy 05/11/25 documented as of this encounter
--- OUTSIDE RECORDS SUMMARY | 2025-05-11 10:38 | XMS_ITS | Encounter Summary ---
Author Organization [employer] Address [address] [place] [address] Street 7t [place] [address] Care Team Providers Care Radial Drill Operator Name Role Phone Name, Toni TREADWELL Primary Care Provider [phone] Skylar Mortensen PharmD Unavailable [phone] Encounter Details Date Type Department Care Team (Latest Contact Info) Description 05/11/2025 Travel Social History Tobacco Use Types Packs/Day [...] Description 06/11/2025 1:00 PM EST Office Visit [facility] ADULT DENTAL [address] [place] [address] Rashid Zimmerman DDS [address] [place] [phone] 06/16/2025 3:00 PM EST Office Visit [facility] ADULT DENTAL [address] [place] [address] Timothy Cedeño [address] [place] [address] 06/21/2025 10:30 AM EST Medication Management [facility] MEDICINE [address] [place] [address] Skylar Mortensen PharmD [address] [place] [address] documented as of this encounter Visit Diagnoses Not on filedocumented in this encounter Care Teams Radial Drill Operator Relationship Specialty Start Date End Date Name, MD Toni [address] [place] [address] PCP - General Family Medicine 07/11/21 Skylar Mortensen, PharmD [address] [place] [address] Pharmacist Pharmacy 05/11/25 documented as of this encounter
--- OUTSIDE RECORDS SUMMARY | 2025-05-11 10:38 | XMS_ITS | Encounter Summary ---
Author Organization [employer] Address [address] [place] [address] 7 [place] [address] Care Team Providers Care Boilermaker Loftsman Name Role Phone Name, Toni TREADWELL Primary Care Provider [phone] Skylar Mortensen PharmD Unavailable Reason for Visit * Reason Onset Date Comments returning call 04/09/2025 Encounter Details Date Type Department Care Team ([facility] st Contact Info) Description 04/09/2025 Telephone [facility] MED[facility]INE [address] [place], [place] [phone] Name, MD Toni [address] [place], [place] [phone] returning call Social History Tobacco Use Types [...] Description 06/11/2025 1:00 PM EST Office Visit [facility] ADULT DENTAL [address] [place] [address] Rashid Zimmerman, DDS [address] [place] [address] 06/16/2025 3:00 PM EST Office Visit [facility] ADULT DENTAL [address] [place] [address] Timothy Cedeño [address] [place] [address] 06/21/2025 10:30 AM EST Medication Management [facility]INE [address] [place] [address] Skylar Mortensen, PharmD [address] [place] [phone] documented as of this encounter Visit Diagnoses Not on filedocumented in this encounter Care Teams Boilermaker Loftsman Relationship Specialty Start Date End Date Name, MD Toni [address] [place] [address] PCP - General Family Medicine 07/11/21 Skylar Mortensen, PharmD [address] [place] [address] Pharmacist Pharmacy 05/11/25 documented as of this encounter
--- OUTSIDE RECORDS SUMMARY | 2025-05-11 10:38 | XMS_ITS | Encounter Summary ---
Author Organization [employer] Address [address] [place] [address] 7t [place] [address] Care Team Providers Care Raschel Knitting Machine Operator Name Role Phone Name, Toni TREADWELL Primary Care Provider [phone] Skylar Mortensen PharmD Unavailable [phone] Encounter Details Date Type Department Care Team (Late st Contact Info) Description 04/06/2025 Telephone [facility] MEDICINE [address] [place] [address] Name, MD Toni [address] [place] [address] Social History Tobacco Use Types Packs/Day Years [...] 1:00 PM EST Office Visit [facility] ADULT DENTAL [address] [place] [address] Rashid Zimmerman DDS [address] [place] [address] 06/16/2025 3:00 PM EST Office Visit [facility] ADULT DENTAL [address] [place] [address] Timothy Cedeño [address] [place] [address] 06/21/2025 10:30 AM EST Medication Management [facility] MED[facility]INE [address] [place] [address] Skylar Mortensen, PharmD [address] [place] [address] documented as of this encounter Visit Diagnoses Not on filedocumented in this encounter Care Teams Raschel Knitting Machine Operator Relationship Specialty Start Date End Date Name, MD Toni [address] [place] [address] PCP - General Family Medicine 07/11/21 Skylar Mortensen, PharmD [address] [place] [address] Pharmacist Pharmacy 05/11/25 documented as of this encounter
--- OUTSIDE RECORDS SUMMARY | 2025-05-11 10:38 | XMS_ITS | Encounter Summary ---
Author Organization [employer] Address [address] [place] [address] 7t [place] [address] Care Team Providers Care Weather Analyst Name Role Phone Name, Toni TREADWELL Primary Care Provider [phone] Skylar Mortensen PharmD Unavailable [phone] Encounter Details Date Type Department Care Team (Late st Contact Info) Description 03/29/2025 Results Follow-Up [facility] [address] [place] [address] [facility] [address] [place] [address] Culture, Urine, Routine, POCT Urinalysis Social History [...] Description 06/11/2025 1:00 PM EST Office Visit [facility] ADULT DENTAL [address] [place] [address] Rashid Zimmerman, DDS [address] [place] [address] 06/16/2025 3:00 PM EST Office Visit [facility] ADULT DENTAL [address] [place] [address] Timothy Cedeño [address] [place] [address] 06/21/2025 10:30 AM EST Medication Management [facility] MEDICINE [address] [place] [address] Skylar Mortensen PharmD [address] [place] [address] documented as of this encounter Visit Diagnoses Not on filedocumented in this encounter Care Teams Weather Analyst Relationship Specialty Start Date End Date Name, MD Toni [address] [place] [address] PCP - General Family Medicine 07/11/21 Skylar Mortensen PharmD [address] [place] [phone] Pharmacist Pharmacy 05/11/25 documented as of this encounter
--- OUTSIDE RECORDS SUMMARY | 2025-05-11 10:38 | XMS_ITS | Encounter Summary ---
Author Organization [employer] Address [address] [place] [address] 7t [place] [address] Care Team Providers Care Transcription Coordinator Name Role Phone Name, Toni TREADWELL Primary Care Provider [phone] Skylar Mortensen PharmD Unavailable [phone] Reason for Visit * Reason Onset Date Comments ED Follow Up 04/26/2023 Encounter Details Date Type Department Care Team (Late st Contact Info) Description 04/26/2023 Telephone [facility] MEDICINE [address] [place], [place] [phone] Name, MD Toni [address] [place] [address] ED Follow Up Social History Tobacco Use [...] No answer. LVM to call back on [phone]. * Telephone Encounter - Tone Rodríguez - 04/26/2023 10:45 AM EST Patient calling to report ED visit on : Date: 04/25/23 Hospital: [facility] Seen for: Back Pain and Kidney Stones Patient advised will forward to team nurse for follow up documented in this encounter Plan of Treatment Upcoming Encounters Date Type Department Care Team (Late st Contact Info) Description 06/11/2025 1:00 PM EST Office Visit [facility] ADULT [facility] [address] [place] [address] Rashid Zimmerman DDS [address] [place] [address] 06/16/2025 3:00 PM EST Office Visit [facility] ADULT [facility] [address] [place] [address] Timothy Cedeño [address] [place] [address] 06/21/2025 10:30 AM EST Medication Management [facility] MEDICINE [address] [place] [address] [phone] Skylar Mortensen PharmD [address] [place] [address] [phone] documented as of this encounter Visit Diagnoses Not on filedocumented in this encounter Care Teams Transcription Coordinator Relationship Specialty Start Date End Date Name, MD Toni [address] [place] [address] [phone] PCP - General Family Medicine 07/11/21 Skylar Mortensen PharmD [address] [place] [address] [phone] Pharmacist Pharmacy 05/11/25 documented as of this encounter
--- OUTSIDE RECORDS SUMMARY | 2025-05-11 10:38 | XMS_ITS | Clinical Summary ---
Author Organization [facility] Address [address] [place] [phone] Phone Care Team Providers Care Heel Sprayer First Name Role Phone Yovany Caballero MD Primary Care Provider [phone] Allergies Active Allergy Reactions Criticality Noted Date [...] Description 03/22/2025 9:51 AM EST Anesthesia Event [facility] [place] [address] [place] [phone] Junaid Flynn MD Steele, Matthew G, LINDA 03/22/2025 9:30 AM EST - 03/22/2025 11:00 AM EST Surgery [facility] Main OR [address] [place] [address] Chato Falcon MD CYSTOSCOPY LEFT URETEROSCOPY, LASER LITHOTRIPSY, STENT [[id number] (CPT )] 03/22/2025 7:48 AM EST - 03/22/2025 12:22 PM EST Hospital Encounter [facility] OR [address] [place] [phone] Chato Falcon MD Pain Discharge Disposition: Home or Self Care 03/12/2025 Lab Requisition [facility] [address] [facility] [place] [address] Robin Cooney MD Urinary tract [...] this topic Medical Devices Implanted Type Area Camp Advisor Device Identifier Shelf Expiration Date Model / Serial / Lot Stent Uret [id number] Contr P[employer]lex Hydroplus - Sna - [id number] Implanted:Qty: 1 on 03/22/2025 by Chato Falcon MD at [facility] Stents Left: Ureter [employer]/GYNECOLG Y 12/08/2027 [id number] / NA / [id number] Procedures Procedure Name Priority Date/Time Associated Diagnosis Comments XR UROGRAM RETROGRADE Routine 03/22/2025 10:34 AM EST Pain TH AN LMA(NO CHARGE) Routine 03/22/2025 10:10 AM EST HI CYSTO W URETEROSCOPY/PYELO SCOPY W LITHOTRIPSY INCL INDWELLING URTRL STNT 03/22/2025 9:50 AM EST Calculus of ureter Case Notes C-ARM, GABY, FRUIT LOADER URINALYSIS WITH REFLEX MICROSCOPIC Routine 03/12/2025 2:28 [...] Signed Date: 03/22/2025 12:55 ET Workstation ID: [id number] Transcribed By: Self Edit Transcribed Date: 03/22/2025 [...] Signed Date: 03/22/2025 12:55 ET Workstation ID: [id number] Transcribed By: Self Edit Transcribed Date: 03/22/2025 [...] reflex microscopic (03/12/2025 2:28 PM EDT) Specific [place] Urine 1.029 1.003 - 1.030 LAB URINALYSIS - AUTOMATED METHOD 03/12/2025 7:07 PM [facility] pH, Urine 6.0 5.0 - 8.0 pH LAB URINALYSIS - AUTOMATED METHOD 03/12/2025 7:07 PM [facility] Leukocytes, Urine Small(A) Negative LAB URINALYSIS - AUTOMATED METHOD 03/12/2025 7:07 PM [facility] Nitrite, Urine Negative Negative LAB URINALYSIS - AUTOMATED METHOD 03/12/2025 7:07 PM [facility] Protein, Urine 30(A) <=Trace mg/dL LAB URINALYSIS - AUTOMATED METHOD 03/12/2025 7:07 PM [facility] Glucose, Urine Negative Negative mg/dL LAB URINALYSIS - AUTOMATED METHOD 03/12/2025 7:07 PM [facility] Ketones, Urine Trace(A) Negative mg/dL LAB URINALYSIS - AUTOMATED METHOD 03/12/2025 7:07 PM [facility] Urobilinogen , Urine 0.2 0.2 - 1.0 mg/dL LAB URINALYSIS - AUTOMATED METHOD 03/12/2025 7:07 PM [facility] Bilirubin, Urine Negative Negative LAB URINALYSIS - AUTOMATED METHOD 03/12/2025 7:07 PM [facility] Blood, Urine Large(A) Negative LAB URINALYSIS - AUTOMATED METHOD 03/12/2025 7:07 PM EDT [facility] RBC, Urine 238.4(H) 0 - 4 /HPF LAB URINALYSIS - AUTOMATED METHOD 03/12/2025 7:07 PM [facility] WBC, Urine 14.1(H) 0 - 4 /HPF LAB URINALYSIS - AUTOMATED METHOD 03/12/2025 7:07 PM EDT [facility] Squamous Epithelial, Urine 68(H) 0 - 60 /LPF LAB URINALYSIS - AUTOMATED METHOD 03/12/2025 7:07 PM [facility] Crystals, Urine Moderate Calcium Oxalate crystals. /LPF LAB URINALYSIS - AUTOMATED METHOD 03/12/2025 7:07 PM [facility] Bacteria, Urine Few(A) Negative /HPF LAB URINALYSIS - AUTOMATED METHOD 03/12/2025 7:07 PM [facility] Hyaline Casts, Urine 1.2 0 - 3 /LPF LAB URINALYSIS - AUTOMATED METHOD 03/12/2025 7:07 PM [facility] Mucus, Urine Small None /HPF LAB URINALYSIS - AUTOMATED METHOD 03/12/2025 7:07 PM [facility] Urine Urine specimen obtained by clean catch procedure / Unknown 03/12/2025 2:28 PM EDT 03/12/2025 5:47 PM EDT us Robin Cooney MD LAB URINE ORDERABLES Final Resul t [facility] [address] [place] [address], * Culture urine (03/12/2025 2:28 PM EDT) Culture, Urine No growth 03/13/2025 11:45 AM EDT [facility] Urine Urine specimen obtained by clean catch procedure / Unknown 03/12/2025 2:28 PM EDT 03/12/2025 5:47 PM EDT us Robin Cooney MD LAB MICROBIOLOGY - GENERAL ORDER PADMINI Final Result [facility] [address] [place] [address], from Last 3 Months Insurance [facility] MEDICAID ADVANTAGE [address] [place] [address] Care Teams Heel Sprayer First Relationship Specialty Start Date End Date Yovany Caballero MD [address] [facility] [address] [place] [address] PCP - General Internal Medicine 04/02/18
--- OUTSIDE RECORDS SUMMARY | 2025-05-11 10:38 | XMS_ITS | Clinical Summary ---
Author Organization [employer] Address [address] [place] [address] 7t [place] [address] Care Team Providers Care Traffic Manager Name Role Phone Name, Toni TREADWELL Primary Care Provider [phone] Skylar Mortensen PharmD Unavailable Allergies Active Allergy Reactions Criticality Noted Date [...] 30 tablet 11 5 02/17/20 26 Active amoxicillin (Amoxil) 500 MG capsule Take [...] pain or fever. 30 tablet 5 06/03/19 Active ibuprofen 400 MG tablet Take 1 tablet by mouth if needed in the morning, at noon, and at bedtime for moderate pain. Take with food or milk 05/11/20 Discontinu ed(Therapy completed) ondansetron (Zofran) 4 MG tablet Take 4 mg by mouth every 8 (eight) hours if needed for nausea or vomiting. 05/11/20 Discontinu ed(Therapy completed) oxybutynin (Ditropan) 5 MG tablet Take 1 tablet by mouth if needed in the morning, at noon, and at bedtime (urinary discomfort). 05/11/20 Discontinu ed(Therapy completed) Lidocaine 5 % creamIndication s:Trapezius strain, right, initial encounter,Neck pain Apply topically bid 30 g 3 5 05/11/20 Discontinu ed(Cost of medication ) Active Problems Problem Noted Date Diagnosed Date Dyslipidemia 05/11/2025 Gastroesophageal reflux disease 12/25/2023 Assessment & Plan [...] 07/02/2022 Overview (08/23/2023): right thyroid lobectomy at [facility] 10/20[place], he was found to have small 1.3cm encapsulated PTC with negative margins and negative lymph nodes. Surgery is considered curative and the plan is that he will follow with [facility] to check the TSH (low range TSH was recommended to his endocrine surgeon) History of lobectomy of thyroid 07/02/2022 Overview (08/23/2023): right thyroid lobectomy at [facility] 10/2021, he was found to have small 1.3cm encapsulated PTC with negative margins and negative lymph nodes. Surgery is considered curative and the plan is that he will follow with [facility] to check the TSH (low range TSH [...] Plan (05/14/2023 10:05 AM EST): Patient of Name here for a [facility] Initial ER visit 04/23/2023 Patient presented with [...] to pain management He then presented to [facility] from 05/01 until 05/04 for left flank [...] Encounters Date Type Department Care Team Description 05/11/2025 Refill [facility] MED[facility] [address] [place] [address] Name, MD Toni Gastroesophageal reflux disease, unspecified whether esophagitis present (Primary Dx) 05/11/2025 Travel 05/10/2025 9:30 AM EST Office Visit [facility] ADULT DENTAL [address] [place] [address] Thang Roblero DDS Periapical abscess without sinus (Primary Dx) 05/04/2025 1:20 PM EST Office Visit [facility] WALK-IN [address] [address] Corinna Kingsley MD Trapezius strain, right, initial encounter (Primary Dx); Neck pain 05/04/2025 Results Follow-Up [address] [address] Corinna Kingsley MD XR CERVICAL SPINE 4V 05/04/[address] [address] Toni Watts MD Appointment Request 05/04/2025 Travel 05/04/[address] [address] Toni Watts MD Appointment Request 05/04/[address] [address] Toni Watts MD Nurse Triage 05/03/2025 8:00 AM EST Office Visit [facility] AD[facility] D[facility] [address] [place] [address] Thang Roblero DDS Periapical abscess without sinus (Primary Dx) 05/03/[address] [address] Toni Watts MD Appointment Request 04/28/2025 Travel 04/27/[address] [address] Toni Watts MD Chart Prep 04/27/[address] [address] Toni Watts MD Insurance 04/26/2025 9:00 AM EST Office Visit [facility] [address] [place] [address] Thang Roblero DDS Dental abscess (Primary Dx) 04/23/[address] [address] Toni Watts MD Nurse Triage 04/09/[address] [address] Toni Watts MD returning call 04/07/2025 9:00 AM EST Office Visit [facility] AD[facility] D[facility] [address] [place] [address] Traci Juan Periapical abscess without sinus (Primary Dx) 04/06/[address] [address] Toni Watts MD Referral 04/06/[address] [address] Toni Watts MD 03/29/2025 Results Follow-Up [facility] [address] [place] [address] Keller Shilpa, [facility] Culture, Urine, Routine, POCT Urinalysis 03/26/2025 10:20 AM EST Office Visit [facility] [address] [address] Keller Shilpa, [facility] Dysuria 03/26/2025 Telephone [facility] [address] [address] Toni Watts MD Medication Question 03/26/2025 Travel 03/19/2025 8:45 AM EDT Office Visit [facility] ADULT DENT[facility] [address] [place] [address] Breanne Waddell Periapical abscess without sinus (Primary Dx) 03/16/2025 2:00 PM EDT Office Visit [address] [address] Toni Watts MD Renal stones (Primary Dx); Dysuria; Bacteremia due to Escherichia coli 03/16/2025 Travel 03/15/[address] [address] Abdon Irene [place] Chart Prep 03/11/2025 Patient Outreach [address] [address] Toni Watts MD Transition Of Care (Tcm) (HDF- Unscheduled LVM) 03/04/[address] [address] Toni Watts MD Change PCP 03/02/2025 10:30 AM EDT Telemedicine [address] [address] Karoline Carrero RN Primary hypertension 03/02/2025 Travel 03/01/2025 Patient Outreach [facility] [address] [place] [address] Toni Watts MD Transition Of Care (Tcm) (HDF scheduled. ) 02/16/2025 10:15 AM EDT Office Visit [facility] MED[facility] [address] [place] [address] Toni Watts MD Primary hypertension (Primary Dx); CASTILLO (obstructive sleep apnea); Vaccine refused by patient 02/16/2025 Travel from Last 3 Months Immunizations Immunization Administration Dates Next Due Influenza, seasonal, injectable, preservative fr ee 05/11/2025 Pfizer Covid-19 Vaccine 12+ 10/09/2020, 1 Td [...] Sign Reading Time Taken Comments Blood Pressure 122/84 05/11/2025 9:37 AM EST Pulse 73 05/04/2025 1:16 PM EST [...] Description 06/11/2025 1:00 PM EST Office Visit [facility] AD[facility] D[facility] [address] [place] [address] Rashid Zimmerman, DDS [address] [place] [address] 06/16/2025 3:00 PM EST Office Visit [facility] ADULT D[facility] [address] [place] [address] Timothy Cedeño [address] [place] [address] 06/21/2025 10:30 AM EST Medication Management [facility] [address] [place] [phone] Skylar Mortensen, PharmD [address] [place] [phone] Health Maintenance Due Date Last Done Comments [...] Screening 03/12/2024 03/12/2023, 03/12/20 COVID-19 Vaccine ( - season) 2025 10/30/2020, 10/09/2020, 07/30/2020 Dental Oral Exam 09/17/2025 03/19/2025, 11/26/2022 Dental Prophylaxis 09/17/2025 03/19/2025, 0 07/18/2023, 11/26/2022 Dental X-Ray: Full Mouth 11/27/2025 11/26/2022 SDOH Screening 02/08/2026 02/08/2025 Dental X-Ray: Bitewings 03/20/2026 03/19/20 25, 09/26/2023, 11/26/2022 Tobacco Screening 05/10/2026 05/10/2025 Lipid Panel 01/09/2030 01/09/2025, 04/0 09/2023, 07/02/2022, Additional history exists DTaP/Tdap/Td Vaccines (3 - Td or Tdap) 08/09/2031 08/08/2021, 12/13/2014, 12/13/2011 RSV Patients and Patients Aged 60 years or older (1 - 1-dose 75+ series) 2048 Influenza Vaccine Completed 05/11/2025 HIB Vaccines Aged Out No longer eligi [...] Procedure Name Priority Date/Time Associated Diagnosis Comments CASE PRESENTATION, DETAILED AND EXTENSIVE TREATMENT PLANNING Routine 05/10/2025 9:30 AM EST 3 RETREATMENT OF PREVIOUS ROOT CANAL THERAPY - MOLAR Routine 05/10/2025 9:30 AM EST Periapical abscess without sinus XR CERVICAL SPINE 4V Routine 05/04/2025 2:19 [...] PM EST Narrative 05/04/2025 3:51 PM EST [address] [address] XRay Report Signed Patient: Ifeanyi Rooney MR#: [id number] : 1975 Acct:[id number] Age/Sex: 49 / M ADM Date: 05/04/25 Loc: HO.HHCX Attending Dr: Corinna Kingsley MD Ordering Physician: Corinna Kingsley MD Date of Service: 05/04/25 Procedure(s): XR cervical spine 4V Accession Number(s): [id number] cc: Corinna Kingsley MD; Name,Toni TREADWELL Reason [...] by: Pio Mccurdy MD 05/04/2025 03:48 PM [facility] Dictated By: Pio Mccurdy MD Signed By: <Electronically signed by Pio Mccurdy MD in OV> 05/04/25 1548 DD/ 1419 TD/TT: 05/04/25 1432 Maintenance Worker House Trailer: Procedure Note Donotuseinterpreter, Image - 05/04/[address] [address] XRay Report Signed Patient: Ifeanyi RooneyMR#: [id number] : 1975Acct:[id number] Age/Sex: 49 / MADM Date: 05/04/25 Loc: HO.HHCX Attending Dr: Coirnna Kingsley MD Ordering Physician: Corinna Kingsley MD Date of Service: 05/04/25 Procedure(s): XR cervical spine 4V Accession Number(s): [id number] cc: Corinna Kingsley MD; Name,Toni TREADWELL Reason [...] 05/04/25 1548 DD/ 1419 TD/TT: 05/04/25 1432 Maintenance Worker House Trailer: Corinna Kingsley MD IMG XR PROCEDURES Edited R esult - Final * Culture, Urine, Routine (03/26/2025 10:55 AM EST) Only the most recent of2 resultswithin the time period is included. Urine Urine specimen obtained by clean catch procedure / Unknown 03/26/2025 10:55 AM EST 03/26/2025 5:58 PM EST Comment:[facility] Narrative [facility] - 03/28/2025 2:06 PM EST Urine Culture No growth. Specimen Source: Urine clean catch [facility] MICROBIOLOGY - GENERAL OR DERABLES Final Result [facility] [address] [place] [phone] * (ABNORMAL) POCT Urinalysis (03/26/2025 10:48 [...] Urine (Urine, Random) 03/26/2025 10:48 AM EST [facility] POINT OF CARE TEST ENTER/EDIT ORDERABLES Final Result * (ABNORMAL) Urinalysis, Complete, with Reflex to Culture (03/16/2025 2:38 PM EDT) Color Urine Yellow [facility] Appearance Urine Clear [facility] PH 5.5 5.0 - 9.0 [facility] Glucose Urine UA Negative Negative mg/dL [facility] Urine Blood Large (3+)(A) Negative [facility] Specific Gideon - Urine 1.010 1.005 - 1.025 [facility] Urine Protein Negative Neg-Trace mg/dL [facility] Urine Ketones Negative Negative mg/dL [facility] Nitrite Urine Negative Negative [facility] Leukocyte Esterase Urine Small (1+)(A) Negative [facility] RBC Urine 6-10(A) 0 - 2 /HPF [facility] Urine WBC 0-5 0 - 5 /HPF [facility] Urine Squamous Epithelial Cell 0-2 0 - 2 /HPF [facility] Urine Bacteria None Seen None Seen [facility] Hyaline Casts, Urine 0-2 0 - 2 /LPF [facility] Urine 03/16/2025 2:38 PM EDT 03/16/2025 6:39 PM EDT Narrative [facility] - 03/16/2025 9:25 PM EDT Urine, Clean Catch Toni Name LAB URINE ORDERABLES Final Resul t Performing Organization Address [facility] Co de Phone Number [facility] [address] [place] [phone] [phone] * (ABNORMAL) Lipid Panel, Standard (01/09/2025 9:12 AM EDT) Triglycerides 456(H) <150 mg/dL [facility] Comment:Desirable Triglyceri de: less than 150 mg/dLBorderline High Triglyceride 150-199 mg/dLHigh Triglyceride: 200-499 mg/dLVery High Triglyceride: greater than or equal to 5OO mg/dL Cholesterol 175 <200 mg/dL [facility] Comment:Desirable Cholestero l: less than 200 mg/dLBorderline High Cholesterol: 200-239 mg/dLHigh Cholesterol: greater than 239 mg/dL LDL Cholesterol Calculated TNP <100 mg/dL [facility] Comment:Unable to calculate the LDL. The formula of Friedwald,Keen, and Viktor is only valid if the triglycerides areless than 400 mg/dl. HDL Cholesterol 29(L) >40 mg/dL [facility] Comment:Desirable HDL: great er than 40 mg/dL Note: This HDL assay may give artificially low results in patients with liver disease. Blood Venous blood specimen / Unknown 01/09/2025 9:12 AM EDT 01/09/2025 9:12 AM EDT Toni Watts MD LAB BLOOD ORDERABLES Final Resul t Performing Organization Address [facility]/ZIP Co de Phone Number [facility] [address] [place] [phone] from Last 3 Months or Most Recently Relevant to Health Maintenance Insurance [facility] C[place] AD[place] Care Teams Traffic Manager Relationship Specialty Start Date End Date Name, MD Toni [address] [place] [address] PCP - General Family Medicine 07/11/21 Skylar Mortensen, GenaroD [address] [place] [address] Pharmacist Pharmacy 05/11/25
--- OUTSIDE RECORDS SUMMARY | 2025-05-11 10:38 | XMS_ITS | Encounter Summary ---
Author Organization [employer] Address [address] [place] [address] 7t [place] [address] Care Team Providers Care Front Office Assistant Name Role Phone Name, Toni TREADWELL Primary Care Provider [phone] Skylar Mortensen PharmD Unavailable Encounter Details Date Type Department Care Team (Late st Contact Info) Description 05/11/2025 Refill [facility] [address] [place] [address] Name, MD Toni [address] [place] [address] Gastroesophageal reflux disease, unspecified whether esophagitis present (Primary Dx) Social History Tobacco Use Types [...] encounter Miscellaneous Notes * Telephone Encounter - Skylar Mortensen PharmD - 05/11/2025 10:05 AM EST Refill requested in CDTM. Forwarding to PCP as is outside the scope of this visit. documented in this encounter Plan of Treatment Upcoming Encounters Date Type Department Care Team (Late st Contact Info) Description 06/11/2025 1:00 PM EST Office Visit [facility] ADULT DENTAL [address] [place] [address] Rashid Zimmerman DDS [address] [place] [address] 06/16/2025 3:00 PM EST Office Visit [facility] ADULT DENTAL [address] [place] [address] Timothy Cedeño [address] [place] [phone] 06/21/2025 10:30 AM EST Medication Management [facility] [address] [place] [phone] Skylar Mortensen PharmD [address] [place] [phone] documented as of this encounter Visit Diagnoses Diagnosis Gastroesophageal reflux disease, unspecified whether esophagitis present- Primary documented in this encounter Care Teams Front Office Assistant Relationship Specialty Start Date End Date Name, MD Toni [address] [place] [phone] PCP - General Family Medicine 07/11/21 Skylar Mortensen PharmD [address] [place] [phone] Pharmacist Pharmacy 05/11/25 documented as of this encounter
[2025-05-11 11:47] LABS: Alanine Aminotransferase 30 U/L (0-40); Albumin Level 3.9 g/dL (3.5-5.0); Alkaline Phosphatase 104 U/L (39-117); Anion Gap 12 (12-20); Aspartate Amino Transferase 34 U/L (5-37); Blood Urea Nitrogen 19 mg/dL (9-16); Calcium 9.6 mg/dL (8.4-10.2); Carbon Dioxide 27 mmol/L (22-29); Chloride 105 mmol/L (96-108); Cholesterol 159 mg/dL (<200); Estimated Glomerular Filt Rate > 60; HDL Cholesterol 26 mg/dL (>40); Potassium 4.0 mmol/L (3.3-5.1); Sodium 140 mmol/L (135-145); Total Protein 8.0 g/dL (6.5-8.0); Triglycerides 648 mg/dL (<150)
[2025-05-11 11:50] LABS: Reflex LDLD? Yes
[2025-05-11 12:18] LABS: Prostate Specific Antigen 0.50 ng/mL (<0.05-4.0)
== END 2025-05-11 09:48 | disposition home or self-care (01) ==
LOC: HO.HHCL 09:47
PROVIDERS: PCP Internal Medicine Geriatric Medicine; Referring Provider Urology; Visit Provider Internal Medicine Geriatric Medicine
DX: I10 Essential (primary) hypertension (principal); N20.0 Calculus of kidney; E78.1 Pure hyperglyceridemia; Z12.5 Encounter for screening for malignant neoplasm of prostate
CPT/HCPCS: 36415; 80048; 80061; 80076; 83721; 84153